=== PATIENT | male | born 1940 | race Two or more races ===

== ENCOUNTER 2017-07-15 08:27 | Emergency (ER) | payer OTHER, MEDICAID ==
[~2017-07-15] VITALS: Ht 167.6 cm; Wt 78.9 kg
[2017-07-15 09:04] LABS: Urine WBC None Seen /hpf (0 - 3)
[2017-07-15 09:09] LABS: Basophils # (auto) 0 uL; Basophils % (auto) 0.1 % (0.0-2.0); Eosinophils # (auto) 0.2 uL; Eosinophils % (auto) 3.6 % (0.0-7.0); Hematocrit 41.7 % (41.0-53.0); Hemoglobin 13.7 g/dL (13.5-17.5); Lymphocytes % (auto) 14.5 % (10.0-50.0); Mean Corpuscular Hgb Conc. 32.7 g/dL (32.0-36.0); Mean Corpuscular Volume 91.8 fL (80.0-100.0); Monocytes # (auto) 0.5 uL; Monocytes % (auto) 7.2 % (0.0-12.0); Neutrophils % (auto) 74.6 % (37.0-80.0); Nucleated Red Blood Cells % 0.1 %; Platelet Count (auto) 273 10^3/uL (140-450); Red Blood Cells 4.55 10^6/uL (4.5-5.90); Red Cell Distribution Width 14.3 % (11.8-14.3); White Blood Cell 6.7 10^3/uL (4.4-10.8)
[2017-07-15 09:25] LABS: Albumin 3.9 g/dL (3.4-5.0); BUN/Creatinine Ratio 16.8; Bilirubin, Total 0.6 mg/dL (0.2-1.0); Calcium 8.9 mg/dL (8.5-10.1); Potassium 3.2 mmol/L (3.5-5.1); Total Protein 8.5 g/dL (6.4-8.2)
[2017-07-15 09:33] LABS: Urine Bacteria NONE SEEN /hpf (None Seen); Urine Blood Negative /uL (Negative); Urine Mucus FEW (None Seen); Urine Specific Gravity 1.014 (1.001-1.035)
[2017-07-15] MEDS ORDERED: NALBUPHINE HCL 10 MG/1ml INJECTION IV ONE (09:45)
[2017-07-15] MEDS ORDERED: POTASSIUM CHL 10% (20 MEQ/15ML) 15ml ORAL SOLN PO ONE (10:45)
[2017-07-15 11:11] VITALS: BP 114/70
== END 2017-07-15 12:26 | disposition home or self-care (01) ==
LOC: ER 08:27
DX: R10.11 Right upper quadrant pain (principal); I10 Essential (primary) hypertension; E78.00 Pure hypercholesterolemia, unspecified; Z90.49 Acquired absence of other specified parts of digestive tract
CPT/HCPCS: 36415; 74176; 80053; 81001; 85025; 93005; 96374; 99285; J2300

== ENCOUNTER → 2018-02-11 | Outpatient (CLI) | payer MEDICARE, MEDICAID | END | disposition home or self-care (01) | LOC: Rad HDHVI 14:33 | PROVIDERS: ATTEND Internal Medicine | DX: I73.9 Peripheral vascular disease, unspecified (principal); R94.31 Abnormal electrocardiogram [ECG] [EKG]; R07.9 Chest pain, unspecified; M79.669 Pain in unspecified lower leg | CPT/HCPCS: 93306; 93926 ==

== ENCOUNTER → 2018-02-13 | Outpatient (CLI) | payer MEDICARE, MEDICAID ==
[2018-02-13 12:16] LABS: Basophils # (auto) 0 uL; Basophils % (auto) 0.6 % (0.0-2.0); Eosinophils # (auto) 0.2 uL; Eosinophils % (auto) 3.6 % (0.0-7.0); Hematocrit 40.3 % (41.0-53.0); Hemoglobin 13.9 g/dL (13.5-17.5); Lymphocytes % (auto) 17.5 % (10.0-50.0); Mean Corpuscular Hemoglobin 31.8 pg (28.0-32.0); Mean Corpuscular Hgb Conc. 34.5 g/dL (32.0-36.0); Mean Corpuscular Volume 92.3 fL (80.0-100.0); Monocytes # (auto) 0.4 uL; Monocytes % (auto) 6.9 % (0.0-12.0); Neutrophils # (auto) 4.2 uL; Neutrophils % (auto) 71.4 % (37.0-80.0); Nucleated Red Blood Cells % 0.3 %; Platelet Count (auto) 243 10^3/uL (140-450); Red Blood Cells 4.36 10^6/uL (4.5-5.90); White Blood Cell 5.9 10^3/uL (4.4-10.8)
[2018-02-13 12:17] LABS: Urine Blood Negative /uL (Negative); Urine Specific Gravity 1.016 (1.001-1.035)
[2018-02-13 12:55] LABS: Albumin 3.7 g/dL (3.4-5.0); BUN/Creatinine Ratio 22.5; Bilirubin, Total 0.6 mg/dL (0.2-1.0); Potassium 3.8 mmol/L (3.5-5.1); Total Protein 7.9 g/dL (6.4-8.2)
[2018-02-13 13:15] LABS: Free T4 (Free Thyroxine) 0.95 ng/dL (0.89-1.76)
[2018-02-13 13:17] LABS: Prostate Specific Antigen 5.06 ng/mL (0.0-4.0)
== END | disposition home or self-care (01) ==
LOC: LAB 09:49
PROVIDERS: ATTEND Internal Medicine
DX: Z00.01 Encounter for general adult medical examination with abnormal findings (principal); C61 Malignant neoplasm of prostate; E29.1 Testicular hypofunction; E03.9 Hypothyroidism, unspecified; E11.9 Type 2 diabetes mellitus without complications; E55.9 Vitamin D deficiency, unspecified; D51.9 Vitamin B12 deficiency anemia, unspecified; N39.0 Urinary tract infection, site not specified
CPT/HCPCS: 36415; 80053; 80061; 81003; 82306; 82607; 83036; 84153; 84154; 84403; 84439; 84443; 85025

== ENCOUNTER → 2018-04-01 | Outpatient (CLI) | payer MEDICARE, MEDICAID ==
[~2018-04-01] VITALS: Ht 167.6 cm; Wt 77.6 kg
[~2018-04-01] MED LIST: ADENOSINE 65 MG in GIVE UN-DILUTED 0 ML IV ONE; ADENOSINE 90 MG/30 ML INJ IV ONE
== END | disposition home or self-care (01) ==
LOC: Rad HDHVI 09:42
PROVIDERS: ATTEND Internal Medicine Cardiovascular Disease
DX: I10 Essential (primary) hypertension (principal); M51.37 Other intervertebral disc degeneration, lumbosacral region
CPT/HCPCS: 78452; 93005; 96374; 96375; A9500; J0153

== ENCOUNTER → 2018-12-21 | Outpatient (CLI) | payer MEDICARE, MEDICAID ==
[2018-12-21 16:20] LABS: Urine Blood Negative /uL (Negative)
[2018-12-21 16:32] LABS: Basophils # (auto) 0 uL; Basophils % (auto) 0.6 % (0.0-2.0); Eosinophils # (auto) 0.2 uL; Eosinophils % (auto) 2.5 % (0.0-7.0); Hematocrit 38.2 % (41.0-53.0); Hemoglobin 12.8 g/dL (13.5-17.5); Lymphocytes # (auto) 1.1 uL; Lymphocytes % (auto) 16.6 % (10.0-50.0); Mean Corpuscular Hemoglobin 30.9 pg (28.0-32.0); Mean Corpuscular Hgb Conc. 33.4 g/dL (32.0-36.0); Mean Corpuscular Volume 92.6 fL (80.0-100.0); Monocytes # (auto) 0.5 uL; Monocytes % (auto) 6.8 % (0.0-12.0); Neutrophils # (auto) 4.9 uL; Neutrophils % (auto) 73.5 % (37.0-80.0); Nucleated Red Blood Cells % 0.1 %; Platelet Count (auto) 257 10^3/uL (140-450); Red Blood Cells 4.13 10^6/uL (4.5-5.90); Red Cell Distribution Width 14.1 % (11.8-14.3); White Blood Cell 6.7 10^3/uL (4.4-10.8)
[2018-12-21 16:35] LABS: Albumin 3.5 g/dL (3.4-5.0); Calcium 9.1 mg/dL (8.5-10.1); Potassium 3.8 mmol/L (3.5-5.1)
[2018-12-21 16:41] LABS: Bilirubin, Total 0.5 mg/dL (0.2-1.0); Total Protein 7.7 g/dL (6.4-8.2)
[2018-12-21 16:53] LABS: Prostate Specific Antigen 4.94 ng/mL (0.0-4.0)
[2018-12-21 18:08] LABS: BUN/Creatinine Ratio 22.7
== END | disposition home or self-care (01) ==
LOC: LAB 13:09
PROVIDERS: ATTEND Internal Medicine
DX: E03.9 Hypothyroidism, unspecified (principal); K90.9 Intestinal malabsorption, unspecified; C61 Malignant neoplasm of prostate; E29.1 Testicular hypofunction; N39.0 Urinary tract infection, site not specified; D51.9 Vitamin B12 deficiency anemia, unspecified; Z79.899 Other long term (current) drug therapy
CPT/HCPCS: 36415; 80053; 80061; 81003; 82306; 82607; 83036; 84153; 84154; 84403; 84439; 84443; 85025

== ENCOUNTER → 2018-12-22 | Outpatient (CLI) | payer MEDICARE, MEDICAID | END | disposition home or self-care (01) | LOC: Rad HDHVI 11:03 | PROVIDERS: ATTEND Internal Medicine | DX: I73.9 Peripheral vascular disease, unspecified (principal); M79.604 Pain in right leg; M79.605 Pain in left leg | CPT/HCPCS: 93926 ==

== ENCOUNTER → 2019-01-18 | Outpatient (CLI) | payer MEDICARE, MEDICAID | END | disposition home or self-care (01) | LOC: Rad HDHVI 09:32 | PROVIDERS: ATTEND Internal Medicine | DX: M17.0 Bilateral primary osteoarthritis of knee (principal) | CPT/HCPCS: 73562 ==

== ENCOUNTER 2019-04-17 07:23 | Emergency (ER) | payer MEDICARE, MEDICAID ==
[~2019-04-17] VITALS: Ht 167.6 cm; Wt 74.8 kg
[2019-04-17 08:34] LABS: Basophils # (auto) 0 uL; Basophils % (auto) 0.6 % (0.0-2.0); Eosinophils # (auto) 0.2 uL; Eosinophils % (auto) 2.5 % (0.0-7.0); Hematocrit 41.4 % (41.0-53.0); Lymphocytes # (auto) 1.2 uL; Lymphocytes % (auto) 17.4 % (10.0-50.0); Mean Corpuscular Hemoglobin 31.1 pg (28.0-32.0); Mean Corpuscular Hgb Conc. 33.8 g/dL (32.0-36.0); Mean Corpuscular Volume 92.1 fL (80.0-100.0); Monocytes # (auto) 0.4 uL; Monocytes % (auto) 5.9 % (0.0-12.0); Neutrophils % (auto) 73.6 % (37.0-80.0); Platelet Count (auto) 288 10^3/uL (140-450); Red Blood Cells 4.49 10^6/uL (4.5-5.90); Red Cell Distribution Width 13.8 % (11.8-14.3); White Blood Cell 6.7 10^3/uL (4.4-10.8)
[2019-04-17 08:51] LABS: Albumin 3.9 g/dL (3.4-5.0); Anion Gap 6 (5-15); Aspartate Aminotransferase 20 U/L (15-37); Blood Urea Nitrogen 13 mg/dL (7-18); Calcium 9.6 mg/dL (8.5-10.1); Carbon Dioxide 28 mmol/L (21-32); Chloride 107 mmol/L (98-107); GFR African American 101 mL/min; GFR Non-African American 84 mL/min; Glucose 94 mg/dL (74-106); Magnesium 2.3 mg/dL (1.6-2.6); Potassium 3.9 mmol/L (3.5-5.1); Sodium 141 mmol/L (136-145)
[2019-04-17 09:54] LABS: Alanine Aminotransferase 30 U/L (16-61); Alkaline Phosphatase 81 U/L (45-117); Bilirubin, Total 0.9 mg/dL (0.2-1.0); Total Protein 8.2 g/dL (6.4-8.2)
[2019-04-17 10:49] LABS: Urine Bacteria NONE SEEN /hpf (None Seen); Urine Blood Negative /uL (Negative); Urine Specific Gravity 1.009 (1.001-1.035); Urine WBC 1 /hpf (0 - 3)
[2019-04-17 12:00] VITALS: BP 108/62
[2019-04-17] MEDS ORDERED: SUCCINYLCHOLINE CHLORIDE 20 MG/ML 10ML VIAL IV ONE (12:47)
[2019-04-17] MEDS ORDERED: ETOMIDATE (2MG/ML) 20ML VIAL IV ONE (12:47)
== END 2019-04-17 14:06 | disposition home or self-care (01) ==
LOC: ER 07:38
DX: M79.604 Pain in right leg (principal); M79.605 Pain in left leg; R53.1 Weakness; G47.00 Insomnia, unspecified; I10 Essential (primary) hypertension; E78.00 Pure hypercholesterolemia, unspecified; Z90.49 Acquired absence of other specified parts of digestive tract
CPT/HCPCS: 36415; 71046; 80053; 81001; 82550; 82962; 83735; 83880; 84484; 85025; 85379; 93005; 94761; 99284; J0330

== ENCOUNTER 2019-05-20 11:08 | Emergency (ER) | payer MEDICARE, MEDICAID ==
[~2019-05-20] VITALS: Ht 167.6 cm; Wt 77.6 kg
[2019-05-20 12:06] LABS: Basophils # (auto) 0 uL; Basophils % (auto) 0.5 % (0.0-2.0); Eosinophils # (auto) 0 uL; Eosinophils % (auto) 0.5 % (0.0-7.0); Hematocrit 37.4 % (41.0-53.0); Hemoglobin 12.7 g/dL (13.5-17.5); Lymphocytes # (auto) 0.9 uL; Lymphocytes % (auto) 13.7 % (10.0-50.0); Mean Corpuscular Hemoglobin 30.8 pg (28.0-32.0); Mean Corpuscular Volume 90.7 fL (80.0-100.0); Monocytes # (auto) 0.3 uL; Monocytes % (auto) 5.1 % (0.0-12.0); Neutrophils # (auto) 5.4 uL; Neutrophils % (auto) 80.2 % (37.0-80.0); Platelet Count (auto) 255 10^3/uL (140-450); Red Blood Cells 4.12 10^6/uL (4.5-5.90); White Blood Cell 6.8 10^3/uL (4.4-10.8)
[2019-05-20 12:28] LABS: Albumin 3.6 g/dL (3.4-5.0); Anion Gap 5 (5-15); Blood Urea Nitrogen 15 mg/dL (7-18); Calcium 8.7 mg/dL (8.5-10.1); Carbon Dioxide 29 mmol/L (21-32); Chloride 104 mmol/L (98-107); Glucose 118 mg/dL (74-106); Potassium 3.3 mmol/L (3.5-5.1); Sodium 138 mmol/L (136-145)
[2019-05-20 12:33] LABS: Alanine Aminotransferase 28 U/L (16-61); Alkaline Phosphatase 75 U/L (45-117); Aspartate Aminotransferase 20 U/L (15-37); BUN/Creatinine Ratio 17.6; Bilirubin, Total 0.7 mg/dL (0.2-1.0); GFR African American 112 mL/min; GFR Non-African American 93 mL/min; Total Protein 7.7 g/dL (6.4-8.2)
[2019-05-20 14:48] LABS: Urine Bacteria NONE SEEN /hpf (None Seen); Urine Blood Negative /uL (Negative); Urine Specific Gravity 1.005 (1.001-1.035); Urine WBC 1 /hpf (0 - 3)
[2019-05-20] MEDS ORDERED: SODIUM CHLORIDE 0.9% 1,000 ML IV ONE ×2 (15:00)
[2019-05-20 17:07] VITALS: BP 114/72
[2019-05-20] MEDS ORDERED: POTASSIUM EFFERVESENT TAB 25 MEQ PO ONE (17:45)
== END 2019-05-20 17:58 | disposition home or self-care (01) ==
LOC: ER 11:08
DX: E87.6 Hypokalemia (principal); N40.0 Benign prostatic hyperplasia without lower urinary tract symptoms; E78.5 Hyperlipidemia, unspecified; I10 Essential (primary) hypertension
CPT/HCPCS: 36415; 71046; 80053; 81001; 84484; 85025; 93005; 99284; J7030

== ENCOUNTER 2019-06-29 06:10 | Emergency (ER) | payer MEDICARE, MEDICAID ==
[~2019-06-29] VITALS: Ht 167.6 cm; Wt 77.6 kg
[2019-06-29] MEDS ORDERED: SODIUM CHLORIDE 0.9% 1,000 ML IV ONE ×2 (07:18)
[2019-06-29 07:45] LABS: Basophils # (auto) 0 uL; Basophils % (auto) 0.6 % (0.0-2.0); Eosinophils # (auto) 0.2 uL; Eosinophils % (auto) 2.8 % (0.0-7.0); Hematocrit 37.6 % (41.0-53.0); Hemoglobin 12.8 g/dL (13.5-17.5); Lymphocytes # (auto) 1.5 uL; Lymphocytes % (auto) 23.4 % (10.0-50.0); Mean Corpuscular Hemoglobin 30.9 pg (28.0-32.0); Mean Corpuscular Hgb Conc. 33.9 g/dL (32.0-36.0); Mean Corpuscular Volume 91.3 fL (80.0-100.0); Monocytes # (auto) 0.5 uL; Monocytes % (auto) 7.7 % (0.0-12.0); Neutrophils # (auto) 4.1 uL; Neutrophils % (auto) 65.5 % (37.0-80.0); Platelet Count (auto) 245 10^3/uL (140-450); Red Blood Cells 4.12 10^6/uL (4.5-5.90); White Blood Cell 6.3 10^3/uL (4.4-10.8)
[2019-06-29 08:02] LABS: Albumin 3.9 g/dL (3.4-5.0); Calcium 9.3 mg/dL (8.5-10.1); Potassium 3.6 mmol/L (3.5-5.1)
[2019-06-29 08:04] LABS: BUN/Creatinine Ratio 20.7
[2019-06-29 08:07] LABS: Bilirubin, Total 0.6 mg/dL (0.2-1.0); Total Protein 7.9 g/dL (6.4-8.2)
[2019-06-29 09:47] VITALS: BP 145/77
== END 2019-06-29 10:09 | disposition home or self-care (01) ==
LOC: ER 06:10
DX: K46.9 Unspecified abdominal hernia without obstruction or gangrene (principal); M19.90 Unspecified osteoarthritis, unspecified site; E78.5 Hyperlipidemia, unspecified; I10 Essential (primary) hypertension
CPT/HCPCS: 36415; 74176; 80053; 83690; 85025

== ENCOUNTER → 2019-10-01 | Outpatient (CLI) | payer MEDICARE, MEDICAID ==
[~2019-10-01] VITALS: Ht 167.6 cm; Wt 78.9 kg
[~2019-10-01] MED LIST changes: -ADENOSINE 65 MG in GIVE UN-DILUTED 0 ML IV ONE; +ADENOSINE 66 MG in GIVE UN-DILUTED 0 ML IV ONE
[2019-10-01 11:58] LABS: Basophils # (auto) 0 10 ^3/uL (0-0.2); Basophils % (auto) 0.7 % (0.0-2.0); Eosinophils # (auto) 0.2 10 ^3/uL (0-0.8); Eosinophils % (auto) 2.8 % (0.0-7.0); Hematocrit 42.5 % (41.0-53.0); Lymphocytes # (auto) 1.6 10 ^3/uL (0.4-5.4); Mean Corpuscular Hemoglobin 30.3 pg (28.0-32.0); Mean Corpuscular Volume 91.8 fL (80.0-100.0); Monocytes # (auto) 0.5 10 ^3/uL (0-1.3); Monocytes % (auto) 7.5 % (0.0-12.0); Neutrophils # (auto) 4.7 10 ^3/uL (1.6-8.6); Platelet Count (auto) 270 10^3/uL (140-450); Red Blood Cells 4.63 10^6/uL (4.5-5.90); Red Cell Distribution Width 13.7 % (11.8-14.3); White Blood Cell 7.1 10^3/uL (4.4-10.8)
[2019-10-01 12:10] LABS: Albumin 4.1 g/dL (3.4-5.0); Calcium 9.5 mg/dL (8.5-10.1); Potassium 3.9 mmol/L (3.5-5.1)
[2019-10-01 12:15] LABS: BUN/Creatinine Ratio 17.4; Bilirubin, Total 0.7 mg/dL (0.2-1.0); Total Protein 8.3 g/dL (6.4-8.2)
[2019-10-01 12:21] LABS: Free T4 (Free Thyroxine) 1.17 ng/dL (0.89-1.76)
[2019-10-01 14:13] LABS: Prostate Specific Antigen 5.82 ng/mL (0.0-4.0)
== END | disposition home or self-care (01) ==
LOC: Rad HDHVI 08:00
PROVIDERS: ATTEND Internal Medicine
DX: E78.00 Pure hypercholesterolemia, unspecified (principal); E03.9 Hypothyroidism, unspecified; K90.9 Intestinal malabsorption, unspecified; C61 Malignant neoplasm of prostate; N39.0 Urinary tract infection, site not specified; D51.9 Vitamin B12 deficiency anemia, unspecified; Z79.899 Other long term (current) drug therapy
CPT/HCPCS: 36415; 78452; 80053; 80061; 82306; 82607; 83036; 84153; 84154; 84403; 84439; 84443; 85025; 93005; 96374; 96375; A9500; J0153

== ENCOUNTER → 2019-10-06 | Outpatient (CLI) | payer MEDICARE, MEDICAID | END | disposition home or self-care (01) | LOC: Rad HDHVI 12:44 | PROVIDERS: ATTEND Internal Medicine | DX: I11.0 Hypertensive heart disease with heart failure (principal); I50.9 Heart failure, unspecified; I42.9 Cardiomyopathy, unspecified; M25.561 Pain in right knee; R60.9 Edema, unspecified; R42 Dizziness and giddiness | CPT/HCPCS: 93925 ==

== ENCOUNTER → 2020-04-20 | Outpatient (CLI) | payer MEDICARE, MEDICAID ==
[2020-04-20 15:56] LABS: Basophils # (auto) 0 10 ^3/uL (0-0.2); Basophils % (auto) 0.5 % (0.0-2.0); Eosinophils # (auto) 0.2 10 ^3/uL (0-0.8); Eosinophils % (auto) 3.4 % (0.0-7.0); Hematocrit 38.6 % (41.0-53.0); Hemoglobin 12.9 g/dL (13.5-17.5); Lymphocytes # (auto) 1.4 10 ^3/uL (0.4-5.4); Lymphocytes % (auto) 20.5 % (10.0-50.0); Mean Corpuscular Hemoglobin 30.5 pg (28.0-32.0); Mean Corpuscular Hgb Conc. 33.4 g/dL (32.0-36.0); Mean Corpuscular Volume 91.3 fL (80.0-100.0); Monocytes # (auto) 0.5 10 ^3/uL (0-1.3); Monocytes % (auto) 7.3 % (0.0-12.0); Neutrophils # (auto) 4.6 10 ^3/uL (1.6-8.6); Neutrophils % (auto) 68.3 % (37.0-80.0); Nucleated Red Blood Cells % 0.1 %; Platelet Count (auto) 272 10^3/uL (140-450); Red Blood Cells 4.23 10^6/uL (4.5-5.90); Red Cell Distribution Width 14.3 % (11.8-14.3); White Blood Cell 6.8 10^3/uL (4.4-10.8)
[2020-04-20 16:05] LABS: Albumin 3.8 g/dL (3.4-5.0); Calcium 9.4 mg/dL (8.5-10.1); Potassium 4.2 mmol/L (3.5-5.1)
[2020-04-20 16:12] LABS: BUN/Creatinine Ratio 28.1; Bilirubin, Total 0.5 mg/dL (0.2-1.0); Total Protein 7.9 g/dL (6.4-8.2)
== END | disposition home or self-care (01) ==
LOC: CHF HDHVI 12:49
PROVIDERS: ATTEND Internal Medicine
DX: C61 Malignant neoplasm of prostate (principal); D51.3 Other dietary vitamin B12 deficiency anemia; I10 Essential (primary) hypertension; E11.9 Type 2 diabetes mellitus without complications; E55.9 Vitamin D deficiency, unspecified; D64.9 Anemia, unspecified; R00.2 Palpitations; R53.1 Weakness; R30.0 Dysuria
CPT/HCPCS: 36415; 80053; 80061; 84153; 84154; 84443; 85025

== ENCOUNTER → 2020-08-31 | Outpatient (CLI) | payer MEDICARE, MEDICAID | END | disposition home or self-care (01) | LOC: CHF HDHVI 12:51 | PROVIDERS: ATTEND Internal Medicine Cardiovascular Disease | DX: I11.0 Hypertensive heart disease with heart failure (principal); I50.9 Heart failure, unspecified | CPT/HCPCS: 93306 ==

== ENCOUNTER → 2020-12-04 | Outpatient (CLI) | payer MEDICARE, MEDICAID ==
[~2020-12-04] VITALS: Ht 165.1 cm; Wt 78.0 kg
[~2020-12-04] MED LIST changes: -ADENOSINE 66 MG in GIVE UN-DILUTED 0 ML IV ONE; -ADENOSINE 90 MG/30 ML INJ IV ONE; +ATOR20TA PO; +HYDR25TA4 PO; +LOSA-69 PO; +MAGN400T40 PO; +MULTCAP45 PO; +PANT40TA2 PO
[2020-12-04 11:50] LABS: Basophils # (auto) 0 10 ^3/uL (0-0.2); Basophils % (auto) 0.8 % (0.0-2.0); Eosinophils # (auto) 0.2 10 ^3/uL (0-0.8); Eosinophils % (auto) 2.9 % (0.0-7.0); Hematocrit 38.4 % (41.0-53.0); Hemoglobin 13.3 g/dL (13.5-17.5); Lymphocytes % (auto) 16.7 % (10.0-50.0); Mean Corpuscular Hgb Conc. 34.5 g/dL (32.0-36.0); Mean Corpuscular Volume 89.9 fL (80.0-100.0); Monocytes # (auto) 0.4 10 ^3/uL (0-1.3); Monocytes % (auto) 6.6 % (0.0-12.0); Neutrophils # (auto) 4.3 10 ^3/uL (1.6-8.6); Platelet Count (auto) 264 10^3/uL (140-450); Red Blood Cells 4.27 10^6/uL (4.5-5.90); White Blood Cell 5.8 10^3/uL (4.4-10.8)
[2020-12-04 12:09] LABS: Urine Bacteria NONE SEEN /hpf (None Seen); Urine Blood Negative /uL (Negative); Urine Specific Gravity 1.015 (1.001-1.035); Urine WBC <1 /hpf (0 - 3)
[2020-12-04 12:12] LABS: Albumin 3.9 g/dL (3.4-5.0); Bilirubin, Total 0.5 mg/dL (0.2-1.0); Calcium 9.1 mg/dL (8.5-10.1)
== END | disposition home or self-care (01) ==
LOC: LAB 11:13 → EDSTATUS 12-07 10:30
PROVIDERS: ATTEND Internal Medicine Gastroenterology
DX: R10.9 Unspecified abdominal pain (principal); Z98.890 Other specified postprocedural states; Z79.899 Other long term (current) drug therapy; Z20.822 Contact with and (suspected) exposure to COVID-19
CPT/HCPCS: 36415; 80053; 81001; 85025; 85049; U0003

== ENCOUNTER → 2021-01-08 | Outpatient (CLI) | payer MEDICARE, MEDICAID | END | disposition home or self-care (01) | LOC: Rad HDHVI 13:09 | PROVIDERS: ATTEND Internal Medicine | DX: I10 Essential (primary) hypertension (principal); E78.5 Hyperlipidemia, unspecified | CPT/HCPCS: 93306 ==

== ENCOUNTER → 2021-03-01 | Outpatient (CLI) | payer MEDICARE, MEDICAID ==
[~2021-03-01] VITALS: Ht 167.6 cm; Wt 75.3 kg
[~2021-03-01] MED LIST changes: +ADENOSINE 63 MG in GIVE UN-DILUTED 0 ML IV ONE; +ADENOSINE 90 MG/30 ML INJ IV ONE
== END | disposition home or self-care (01) ==
LOC: Rad HDHVI 02-16 12:56
PROVIDERS: ATTEND Internal Medicine
DX: R00.2 Palpitations (principal); I10 Essential (primary) hypertension; E78.5 Hyperlipidemia, unspecified
CPT/HCPCS: 78452; 93005; 96374; 96375; A9500; J0153

== ENCOUNTER 2021-08-12 01:22 | Emergency (ER) | payer MEDICARE, MEDICAID ==
[~2021-08-12] VITALS: Ht 160 cm; Wt 78.0 kg
[~2021-08-12 01:22] MED LIST changes: -ADENOSINE 63 MG in GIVE UN-DILUTED 0 ML IV ONE; -ADENOSINE 90 MG/30 ML INJ IV ONE
[2021-08-12 01:50] LABS: Basophils # (auto) 0.1 10 ^3/uL (0-0.2); Basophils % (auto) 0.6 % (0.0-2.0); Eosinophils # (auto) 0 10 ^3/uL (0-0.8); Eosinophils % (auto) 0.4 % (0.0-7.0); Hematocrit 39.3 % (41.0-53.0); Hemoglobin 13.3 g/dL (13.5-17.5); Lymphocytes # (auto) 1.2 10 ^3/uL (0.4-5.4); Lymphocytes % (auto) 9.7 % (10.0-50.0); Mean Corpuscular Hemoglobin 31.3 pg (28.0-32.0); Mean Corpuscular Hgb Conc. 33.8 g/dL (32.0-36.0); Mean Corpuscular Volume 92.5 fL (80.0-100.0); Monocytes # (auto) 0.6 10 ^3/uL (0-1.3); Monocytes % (auto) 4.8 % (0.0-12.0); Neutrophils % (auto) 84.5 % (37.0-80.0); Red Blood Cells 4.24 10^6/uL (4.5-5.90); Red Cell Distribution Width 14.1 % (11.8-14.3); White Blood Cell 11.9 10^3/uL (4.4-10.8)
[2021-08-12 02:18] LABS: Albumin 3.8 g/dL (3.4-5.0); BUN/Creatinine Ratio 26.4; Magnesium 2.2 mg/dL (1.6-2.6); Potassium 3.6 mmol/L (3.5-5.1)
[2021-08-12 02:22] LABS: Bilirubin, Total 0.5 mg/dL (0.2-1.0); Total Protein 7.7 g/dL (6.4-8.2)
[2021-08-12 05:51] VITALS: BP 129/78
[2021-08-12 06:17] LABS: Magnesium 2.3 mg/dL (1.6-2.6)
== END 2021-08-12 06:29 | disposition home or self-care (01) ==
LOC: ER 01:24
DX: R42 Dizziness and giddiness (principal); I10 Essential (primary) hypertension; E11.9 Type 2 diabetes mellitus without complications; Z79.899 Other long term (current) drug therapy
CPT/HCPCS: 36415; 71045; 80053; 83735; 83880; 84484; 85025; 93005

== ENCOUNTER → 2021-10-22 | Outpatient (CLI) | payer MEDICARE, MEDICAID ==
[2021-10-22 15:33] LABS: Basophils # (auto) 0 10 ^3/uL (0-0.2); Basophils % (auto) 0.6 % (0.0-2.0); Eosinophils # (auto) 0.1 10 ^3/uL (0-0.8); Eosinophils % (auto) 2.2 % (0.0-7.0); Hematocrit 38.7 % (41.0-53.0); Hemoglobin 13.1 g/dL (13.5-17.5); Lymphocytes # (auto) 1.2 10 ^3/uL (0.4-5.4); Lymphocytes % (auto) 18.3 % (10.0-50.0); Mean Corpuscular Hgb Conc. 33.8 g/dL (32.0-36.0); Mean Corpuscular Volume 91.6 fL (80.0-100.0); Monocytes # (auto) 0.5 10 ^3/uL (0-1.3); Neutrophils # (auto) 4.7 10 ^3/uL (1.6-8.6); Neutrophils % (auto) 71.9 % (37.0-80.0); Nucleated Red Blood Cells % 0.1 %; Red Blood Cells 4.22 10^6/uL (4.5-5.90); Red Cell Distribution Width 13.9 % (11.8-14.3); White Blood Cell 6.5 10^3/uL (4.4-10.8)
[2021-10-22 15:45] LABS: Calcium 9.4 mg/dL (8.5-10.1); Potassium 3.7 mmol/L (3.5-5.1)
[2021-10-22 15:47] LABS: BUN/Creatinine Ratio 23.8
[2021-10-22 16:20] LABS: INR 1.01 (0.9-1.15); Partial Thromboplastin Time 32.5 sec (23.6-33.0)
== END | disposition home or self-care (01) ==
LOC: Rad HDHVI 11:43
PROVIDERS: ATTEND Internal Medicine
DX: Z01.812 Encounter for preprocedural laboratory examination (principal); M79.604 Pain in right leg; M79.605 Pain in left leg
CPT/HCPCS: 36415; 71046; 80048; 85025; 85610; 85730

== ENCOUNTER 2022-01-05 08:14 | Emergency (ER) | payer MEDICARE, MEDICAID ==
[~2022-01-05] VITALS: Ht 170.2 cm; Wt 77.2 kg
[2022-01-05] MEDS ORDERED: GABAPENTIN 300 MG CAP PO ONE (09:00)
[2022-01-05] MEDS ORDERED: SODIUM CHLORIDE 0.9% 500 ML IV ONE (09:00)
[2022-01-05] MEDS ORDERED: SODIUM CHLORIDE 0.9% 1,000 ML IV ONE (09:00)
[2022-01-05] MEDS ORDERED: HYDROmorphone HCL 2 MG/ML VL/or syr IV ONE (09:00)
[2022-01-05] MEDS ORDERED: DexAMETHasone SOD PHOS 10MG/1ML VIAL INJ IV ONE (09:00)
[2022-01-05 09:04] LABS: Basophils # (auto) 0 10 ^3/uL (0-0.2); Basophils % (auto) 0.7 % (0.0-2.0); Eosinophils # (auto) 0 10 ^3/uL (0-0.8); Eosinophils % (auto) 0.5 % (0.0-7.0); Hematocrit 39.9 % (41.0-53.0); Lymphocytes % (auto) 16.4 % (10.0-50.0); Mean Corpuscular Hemoglobin 29.6 pg (28.0-32.0); Mean Corpuscular Hgb Conc. 32.7 g/dL (32.0-36.0); Mean Corpuscular Volume 90.6 fL (80.0-100.0); Monocytes # (auto) 0.4 10 ^3/uL (0-1.3); Monocytes % (auto) 6.4 % (0.0-12.0); Neutrophils # (auto) 4.6 10 ^3/uL (1.6-8.6); Nucleated Red Blood Cells % 0.1 %; Red Cell Distribution Width 14.3 % (11.8-14.3); White Blood Cell 6.1 10^3/uL (4.4-10.8)
[2022-01-05 09:18] LABS: Partial Thromboplastin Time 30.9 sec (24.6-33.4)
[2022-01-05 09:22] LABS: Albumin 3.5 g/dL (3.4-5.0); Calcium 9.2 mg/dL (8.5-10.1); Magnesium 2.2 mg/dL (1.6-2.6); Potassium 4.1 mmol/L (3.5-5.1)
[2022-01-05 09:25] LABS: BUN/Creatinine Ratio 25.3; Bilirubin, Total 0.8 mg/dL (0.2-1.0); Total Protein 7.6 g/dL (6.4-8.2)
[2022-01-05 11:05] LABS: Urine WBC None Seen /hpf (0 - 3)
[2022-01-05 11:17] LABS: Urine Bacteria NONE SEEN /hpf (None Seen); Urine Blood Negative /uL (Negative); Urine Mucus FEW (None Seen); Urine Specific Gravity 1.012 (1.001-1.035)
[2022-01-05 12:00] VITALS: BP 132/61
[2022-01-05] MEDS ORDERED: GABA300C10 PO (13:06)
[2022-01-05] MEDS ORDERED: FOLITAB22 PO (13:06)
== END 2022-01-05 13:50 | disposition home or self-care (01) ==
LOC: ER 08:14
DX: M47.27 Other spondylosis with radiculopathy, lumbosacral region (principal); M54.42 Lumbago with sciatica, left side; M54.41 Lumbago with sciatica, right side; E78.5 Hyperlipidemia, unspecified; I10 Essential (primary) hypertension; M19.90 Unspecified osteoarthritis, unspecified site
CPT/HCPCS: 36415; 71045; 80053; 81001; 83735; 83880; 84443; 84484; 85025; 85610; 85730; 93005; 96361; 96374; 96375; 99285; J1100; J1170; J7030; J7040

== ENCOUNTER → 2022-01-29 | Outpatient (CLI) | payer MEDICARE, MEDICAID ==
[~2022-01-29] MED LIST changes: +FOLITAB22 PO; +GABA300C10 PO
== END | disposition home or self-care (01) ==
LOC: Rad HDHVI 15:28
PROVIDERS: ATTEND Internal Medicine
DX: S72.001A Fracture of unspecified part of neck of right femur, initial encounter for closed fracture (principal); M97.01XA Periprosthetic fracture around internal prosthetic right hip joint, initial encounter; X58.XXXA Exposure to other specified factors, initial encounter; Y93.89 Activity, other specified; Y92.89 Other specified places as the place of occurrence of the external cause; Y99.8 Other external cause status; M85.80 Other specified disorders of bone density and structure, unspecified site

== ENCOUNTER 2022-01-30 09:41 | Emergency (ER) | payer MEDICARE, MEDICAID ==
[~2022-01-30] VITALS: Ht 157.5 cm; Wt 78.0 kg
[2022-01-30] MEDS ORDERED: ACETAMINOPHEN 325 MG TAB PO ONE (12:15)
[2022-01-30 15:29] VITALS: BP 145/83
== END 2022-01-30 21:35 | disposition left against medical advice (07) ==
LOC: ER 09:41
DX: M25.551 Pain in right hip (principal); I10 Essential (primary) hypertension; E78.5 Hyperlipidemia, unspecified; Z90.49 Acquired absence of other specified parts of digestive tract; Z79.899 Other long term (current) drug therapy; W18.39XA Other fall on same level, initial encounter; Y93.89 Activity, other specified; Y92.89 Other specified places as the place of occurrence of the external cause; Y99.8 Other external cause status
CPT/HCPCS: 73700

== ENCOUNTER 2022-02-03 09:41 | Inpatient (IN) | payer MEDICARE, MEDICAID ==
[~2022-02-03] VITALS: Ht 167.6 cm; Wt 69.5 kg
[2022-02-03 12:24] LABS: Basophils # (auto) 0 10 ^3/uL (0-0.2); Basophils % (auto) 0.7 % (0.0-2.0); Eosinophils # (auto) 0.1 10 ^3/uL (0-0.8); Eosinophils % (auto) 2.1 % (0.0-7.0); Hematocrit 37.3 % (41.0-53.0); Hemoglobin 12.2 g/dL (13.5-17.5); Lymphocytes # (auto) 0.8 10 ^3/uL (0.4-5.4); Lymphocytes % (auto) 12.1 % (10.0-50.0); Mean Corpuscular Hemoglobin 29.6 pg (28.0-32.0); Mean Corpuscular Hgb Conc. 32.6 g/dL (32.0-36.0); Mean Corpuscular Volume 90.7 fL (80.0-100.0); Monocytes # (auto) 0.3 10 ^3/uL (0-1.3); Monocytes % (auto) 5.4 % (0.0-12.0); Neutrophils % (auto) 79.7 % (37.0-80.0); Nucleated Red Blood Cells % 0.1 %; Red Blood Cells 4.11 10^6/uL (4.5-5.90); White Blood Cell 6.2 10^3/uL (4.4-10.8)
[2022-02-03 12:41] LABS: Potassium 3.7 mmol/L (3.5-5.1)
[2022-02-03 12:48] LABS: Albumin 3.2 g/dL (3.4-5.0); Bilirubin, Total 0.4 mg/dL (0.2-1.0)
[2022-02-03] MEDS ORDERED: ONDANSETRON HCL 4 MG/2 ML VIAL IV PRN (15:15)
[2022-02-03] MEDS ORDERED: ACETAMINOPHEN 325 MG TAB PO PRN (15:15)
[2022-02-03] MEDS ORDERED: DOCUSATE SOD 100 MG CAP PO PRN (15:15)
[2022-02-03] MEDS: HYDROcodone-ACET 5/325MG TAB PO PRN (15:34)
[2022-02-03 18:42] LABS: Urine Bacteria NONE SEEN /hpf (None Seen); Urine Blood Negative /uL (Negative); Urine Specific Gravity 1.021 (1.001-1.035); Urine WBC 10 /hpf (0 - 3)
[2022-02-03] MEDS: GABAPENTIN 300 MG CAP PO SCH (22:55)
[2022-02-03 23:16] VITALS: BP 150/78
[2022-02-03 23:30] VITALS: BP 150/78
[2022-02-04 04:49] LABS: Basophils # (auto) 0 10 ^3/uL (0-0.2); Basophils % (auto) 0.6 % (0.0-2.0); Eosinophils # (auto) 0.2 10 ^3/uL (0-0.8); Eosinophils % (auto) 2.4 % (0.0-7.0); Hematocrit 36.8 % (41.0-53.0); Lymphocytes % (auto) 15.8 % (10.0-50.0); Mean Corpuscular Hemoglobin 29.6 pg (28.0-32.0); Mean Corpuscular Hgb Conc. 32.7 g/dL (32.0-36.0); Mean Corpuscular Volume 90.6 fL (80.0-100.0); Monocytes # (auto) 0.4 10 ^3/uL (0-1.3); Monocytes % (auto) 6.8 % (0.0-12.0); Neutrophils # (auto) 4.8 10 ^3/uL (1.6-8.6); Neutrophils % (auto) 74.4 % (37.0-80.0); Red Blood Cells 4.06 10^6/uL (4.5-5.90); Red Cell Distribution Width 14.1 % (11.8-14.3); White Blood Cell 6.5 10^3/uL (4.4-10.8)
[2022-02-04 05:00] VITALS: BP 149/80
[2022-02-04 05:04] LABS: Potassium 3.8 mmol/L (3.5-5.1)
[2022-02-04 05:09] LABS: Calcium 8.8 mg/dL (8.5-10.1)
[2022-02-04] MEDS: GABAPENTIN 300 MG CAP PO SCH ×3 (05:33→22:24)
[2022-02-04 09:00] VITALS: BP 144/68
[2022-02-04] MEDS: ENOXAPARIN SOD 40 MG/0.4 ML SYRINGE SC SCH (09:47)
[2022-02-04] MEDS: HCTZ 25 MG TAB PO SCH (09:47)
[2022-02-04] MEDS: PANTOPRAZOLE 40 MG TAB PO SCH (09:47)
[2022-02-04] MEDS: LOSARTAN POTASSIUM 50 MG TAB PO SCH (09:48)
[2022-02-04] MEDS: ATORVASTATIN 20 MG TAB PO SCH (09:48)
[2022-02-04] MEDS: HYDROcodone-ACET 5/325MG TAB PO PRN ×3 (11:47→20:52)
[2022-02-04] MEDS ORDERED: HYDROmorphone HCL 2 MG/ML VL/or syr IV PRN ×2 (12:45→18:30)
[2022-02-04 13:00] VITALS: BP 136/79
[2022-02-04] MEDS ORDERED: IOHEXOL 300 MG/ML 100ML BOTTLE IJ ONE (13:14)
[2022-02-04 17:22] VITALS: BP 132/76
[2022-02-04 22:00] VITALS: BP 100/60
[2022-02-05 05:00] VITALS: BP 123/70
[2022-02-05] MEDS: GABAPENTIN 300 MG CAP PO SCH ×3 (06:21→21:22)
[2022-02-05 08:20] VITALS: BP 126/82
[2022-02-05] MEDS: ENOXAPARIN SOD 40 MG/0.4 ML SYRINGE SC SCH (08:54)
[2022-02-05] MEDS: ATORVASTATIN 20 MG TAB PO SCH (08:55)
[2022-02-05] MEDS: LOSARTAN POTASSIUM 50 MG TAB PO SCH (08:55)
[2022-02-05] MEDS: HCTZ 25 MG TAB PO SCH (08:55)
[2022-02-05] MEDS: PANTOPRAZOLE 40 MG TAB PO SCH (08:55)
[2022-02-05 12:15] VITALS: BP 140/84
[2022-02-05 16:15] VITALS: BP 115/66
[2022-02-05 22:00] VITALS: BP 94/66
[2022-02-06] MEDS: HYDROcodone-ACET 5/325MG TAB PO PRN ×2 (00:48→13:31)
[2022-02-06 05:00] VITALS: BP 98/69
[2022-02-06] MEDS: GABAPENTIN 300 MG CAP PO SCH ×2 (05:37→13:31)
[2022-02-06 08:15] VITALS: BP 119/71
[2022-02-06] MEDS: ENOXAPARIN SOD 40 MG/0.4 ML SYRINGE SC SCH (09:01)
[2022-02-06] MEDS: ATORVASTATIN 20 MG TAB PO SCH (09:01)
[2022-02-06] MEDS: PANTOPRAZOLE 40 MG TAB PO SCH (09:01)
[2022-02-06] MEDS: HCTZ 25 MG TAB PO SCH (09:01)
[2022-02-06] MEDS: LOSARTAN POTASSIUM 50 MG TAB PO SCH (09:02)
[2022-02-06] MEDS ORDERED: METH750T22 PO (10:16)
[2022-02-06] MEDS ORDERED: HYDR2TAB58 PO (10:16)
[2022-02-06 12:10] VITALS: BP 98/58
[2022-02-06 13:39] VITALS: BP 98/58
== END 2022-02-06 18:08 | disposition home or self-care (01) | DRG 552 ==
LOC: ER 09:41 → OVERFLOW 15:17 → WEST WING 22:10
PROVIDERS: ADMIT Nurse Practitioner Family; ATTEND Family Medicine
DX: S22.089A Unspecified fracture of T11-T12 vertebra, initial encounter for closed fracture (principal); M54.9 Dorsalgia, unspecified; M51.36 Other intervertebral disc degeneration, lumbar region; E78.5 Hyperlipidemia, unspecified; Z20.822 Contact with and (suspected) exposure to COVID-19; G89.29 Other chronic pain; M25.551 Pain in right hip; R26.2 Difficulty in walking, not elsewhere classified; I10 Essential (primary) hypertension; M54.40 Lumbago with sciatica, unspecified side; M85.80 Other specified disorders of bone density and structure, unspecified site; W07.XXXA Fall from chair, initial encounter; G62.9 Polyneuropathy, unspecified; Z91.19 Patient's noncompliance with other medical treatment and regimen; Z79.899 Other long term (current) drug therapy; Y93.89 Activity, other specified; Y92.89 Other specified places as the place of occurrence of the external cause; Y99.8 Other external cause status; Z99.3 Dependence on wheelchair
CPT/HCPCS: 36415; 72132; 80048; 80053; 81001; 85025; 97110; 97116; 97163; G0378

== ENCOUNTER 2022-03-19 09:15 | Emergency (ER) | payer MEDICARE, MEDICAID ==
[~2022-03-19] VITALS: Ht 167.6 cm; Wt 78.0 kg
[~2022-03-19 09:15] MED LIST changes: +HYDR2TAB58 PO; +METH750T22 PO
[2022-03-19] MEDS ORDERED: LIDOCAINE 2% JELLY 11ml (GLYDO) ONE (09:40)
[2022-03-19] MEDS ORDERED: LIDOCAINE 2% JELLY 11ml (GLYDO) UR ONE (09:45)
[2022-03-19 10:29] LABS: Urine Bacteria NONE SEEN /hpf (None Seen); Urine Blood 3+ /uL (Negative); Urine Specific Gravity 1.008 (1.001-1.035); Urine WBC 1 /hpf (0 - 3)
[2022-03-19 11:07] LABS: Basophils # (auto) 0 10 ^3/uL (0-0.2); Basophils % (auto) 0.5 % (0.0-2.0); Eosinophils # (auto) 0.1 10 ^3/uL (0-0.8); Eosinophils % (auto) 1.8 % (0.0-7.0); Hematocrit 34.6 % (41.0-53.0); Hemoglobin 11.2 g/dL (13.5-17.5); Lymphocytes # (auto) 0.6 10 ^3/uL (0.4-5.4); Lymphocytes % (auto) 12.5 % (10.0-50.0); Mean Corpuscular Hemoglobin 29.4 pg (28.0-32.0); Mean Corpuscular Hgb Conc. 32.5 g/dL (32.0-36.0); Mean Corpuscular Volume 90.6 fL (80.0-100.0); Monocytes # (auto) 0.3 10 ^3/uL (0-1.3); Neutrophils % (auto) 79.2 % (37.0-80.0); Red Blood Cells 3.82 10^6/uL (4.5-5.90); Red Cell Distribution Width 14.6 % (11.8-14.3)
[2022-03-19 11:13] LABS: Potassium 3.6 mmol/L (3.5-5.1)
[2022-03-19 11:24] LABS: Albumin 3.4 g/dL (3.4-5.0); BUN/Creatinine Ratio 23.9; Bilirubin, Total 0.7 mg/dL (0.2-1.0); Calcium 8.9 mg/dL (8.5-10.1); Total Protein 6.5 g/dL (6.4-8.2)
[2022-03-19] MEDS ORDERED: ACETAMINOPHEN 325 MG TAB PO ONE (13:00)
[2022-03-19 14:13] VITALS: BP 147/75
== END 2022-03-19 16:26 | disposition home or self-care (01) ==
LOC: ER 09:15
DX: R33.9 Retention of urine, unspecified (principal); E78.5 Hyperlipidemia, unspecified; I10 Essential (primary) hypertension; Z20.822 Contact with and (suspected) exposure to COVID-19
CPT/HCPCS: 36415; 51702; 80053; 81001; 85025

== ENCOUNTER → 2022-10-15 | Outpatient (CLI) | payer MEDICARE, OTHER | END | disposition home or self-care (01) | LOC: Rad HDHVI 13:01 | PROVIDERS: ATTEND Internal Medicine Cardiovascular Disease | DX: I07.1 Rheumatic tricuspid insufficiency (principal); R06.02 Shortness of breath; R00.2 Palpitations | CPT/HCPCS: 93306 ==

== ENCOUNTER 2024-03-24 04:39 | Inpatient (IN) | payer MEDICARE, MEDICAID ==
[~2024-03-24] VITALS: Ht 167.6 cm; Wt 71.9 kg
[~2024-03-24 04:39] MED LIST changes: +GABA-1250 PO; -GABA300C10 PO; +LOSA-534 PO; -LOSA-69 PO; +METH-1182 PO; -METH750T22 PO
[2024-03-24 05:51] LABS: Basophils # (auto) 0.1 10 ^3/uL (0-0.2); Basophils % (auto) 0.8 % (0.0-2.0); Eosinophils # (auto) 0.1 10 ^3/uL (0-0.8); Eosinophils % (auto) 1.1 % (0.0-7.0); Hematocrit 41.9 % (41.0-53.0); Hemoglobin 14.3 g/dL (13.5-17.5); Lymphocytes # (auto) 1.4 10 ^3/uL (0.4-5.4); Lymphocytes % (auto) 13.1 % (10.0-50.0); Mean Corpuscular Hgb Conc. 34.1 g/dL (32.0-36.0); Monocytes # (auto) 0.8 10 ^3/uL (0-1.3); Monocytes % (auto) 6.9 % (0.0-12.0); Neutrophils # (auto) 8.5 10 ^3/uL (1.6-8.6); Neutrophils % (auto) 78.1 % (37.0-80.0); Platelet Count (auto) 283 10^3/uL (140-450); Red Cell Distribution Width 13.9 % (11.8-14.3); White Blood Cell 10.9 10^3/uL (4.4-10.8)
[2024-03-24 06:13] LABS: Urine Bacteria None Seen /hpf (None Seen)
[2024-03-24 06:17] LABS: Alanine Aminotransferase 22 U/L (7-40); Albumin 4.7 g/dL (3.2-4.8); Alkaline Phosphatase 97 U/L (46-116); Anion Gap 8 (5-15); Aspartate Aminotransferase 22 U/L (13-40); BUN/Creatinine Ratio 17.6 (10.0-20.0); Bilirubin, Total 0.9 mg/dL (0.2-1.0); Blood Urea Nitrogen 16 mg/dL (9-23); Calcium 10.1 mg/dL (8.7-10.4); Carbon Dioxide 24 mmol/L (20-31); Chloride 105 mmol/L (98-107); Glucose 99 mg/dL (74-106); Potassium 3.8 mmol/L (3.5-5.1); Sodium 137 mmol/L (136-145); Total Protein 7.9 g/dL (5.7-8.2)
[2024-03-24 06:43] LABS: Urine Blood 1+ /uL (Negative); Urine Clarity Clear (Clear); Urine Color Light-Yellow (Yellow); Urine Mucus FEW (None Seen); Urine Protein, UAD Negative (Negative); Urine Specific Gravity 1.015 (1.001-1.035); Urine Urobilinogen Normal (Negative); Urine WBC <1 /hpf (0 - 3)
[2024-03-24 06:48] VITALS: PULSE 75; RESP 16; O2SAT 96
[2024-03-24] MEDS ORDERED: TAMS0.4C39 PO (08:44)
[2024-03-24] MEDS ORDERED: ONDANSETRON HCL 4 MG/2 ML VIAL IV PRN (08:45)
[2024-03-24] MEDS: TAMSULOSIN HYDROCHLORIDE 0.4 MG CAP PO SCH (09:39)
[2024-03-24] MEDS: hydroCHLOROthiazide 25 MG TAB PO SCH (09:39)
[2024-03-24] MEDS: PANTOPRAZOLE 40 MG TAB PO SCH (09:39)
[2024-03-24] MEDS: ATORVASTATIN 20 MG TAB PO SCH (09:39)
[2024-03-24] MEDS: LOSARTAN POTASSIUM 50 MG TAB PO SCH (09:40)
[2024-03-24] MEDS: DOCUSATE SOD 100 MG CAP PO PRN (09:41)
[2024-03-24] MEDS: BISACODYL 10 MG RECT SUPP PR ONE (10:44)
[2024-03-24] MEDS: ACETAMINOPHEN 325 MG TAB PO PRN (13:46)
[2024-03-24 14:20] VITALS: BP 111/67; PULSE 80; RESP 18; TEMP 98.8; O2SAT 96
[2024-03-24] MEDS: GABAPENTIN 300 MG CAP PO SCH (14:58)
[2024-03-24] MEDS ORDERED: QUET50TA PO (15:17)
[2024-03-24 16:36] VITALS: BP 111/68; PULSE 74; RESP 16; TEMP 98.1; O2SAT 94
[2024-03-24 20:00] VITALS: PULSE 60; RESP 16; O2SAT 93
[2024-03-24 21:00] VITALS: BP 109/62; PULSE 60; RESP 16; TEMP 97.8; O2SAT 93
[2024-03-25 00:47] VITALS: BP 124/59; PULSE 62; RESP 16; TEMP 97.5; O2SAT 93
[2024-03-25 05:00] VITALS: BP 122/72; PULSE 65; RESP 16; TEMP 97.7; O2SAT 93
[2024-03-25 07:34] LABS: Chloride 106 mmol/L (98-107); Potassium 3.7 mmol/L (3.5-5.1); Sodium 137 mmol/L (136-145)
[2024-03-25 07:35] LABS: Anion Gap 6 (5-15); Calcium 9.5 mg/dL (8.7-10.4); Carbon Dioxide 25 mmol/L (20-31)
[2024-03-25 07:36] LABS: Basophils # (auto) 0 10 ^3/uL (0-0.2); Basophils % (auto) 0.5 % (0.0-2.0); Eosinophils # (auto) 0.3 10 ^3/uL (0-0.8); Eosinophils % (auto) 2.8 % (0.0-7.0); Hematocrit 36.9 % (41.0-53.0); Hemoglobin 12.7 g/dL (13.5-17.5); Lymphocytes # (auto) 1.3 10 ^3/uL (0.4-5.4); Mean Corpuscular Hemoglobin 31.6 pg (28.0-32.0); Mean Corpuscular Hgb Conc. 34.5 g/dL (32.0-36.0); Mean Corpuscular Volume 91.6 fL (80.0-100.0); Monocytes # (auto) 0.8 10 ^3/uL (0-1.3); Monocytes % (auto) 8.5 % (0.0-12.0); Neutrophils # (auto) 6.8 10 ^3/uL (1.6-8.6); Neutrophils % (auto) 74.2 % (37.0-80.0); Platelet Count (auto) 240 10^3/uL (140-450); Red Blood Cells 4.03 10^6/uL (4.5-5.90); Red Cell Distribution Width 13.8 % (11.8-14.3); White Blood Cell 9.1 10^3/uL (4.4-10.8)
[2024-03-25 07:40] LABS: BUN/Creatinine Ratio 18.1 (10.0-20.0); Blood Urea Nitrogen 19 mg/dL (9-23); Glucose 98 mg/dL (74-106)
[2024-03-25 08:19] VITALS: BP 103/52; PULSE 61; RESP 16; TEMP 97.5; O2SAT 93
[2024-03-25 12:24] VITALS: BP 107/53; PULSE 84; RESP 19; TEMP 98.4; O2SAT 98
[2024-03-25 16:49] VITALS: BP 119/55; PULSE 65; RESP 16; TEMP 98.2; O2SAT 93
[2024-03-25] MEDS: TAMSULOSIN HYDROCHLORIDE 0.4 MG CAP PO SCH (17:59)
[2024-03-25 21:00] VITALS: BP 117/61; PULSE 69; RESP 18; TEMP 97.5; O2SAT 93
[2024-03-26 01:00] VITALS: BP 127/61; PULSE 66; RESP 18; TEMP 97.4; O2SAT 93
[2024-03-26 05:00] VITALS: BP 121/61; PULSE 71; RESP 17; TEMP 97.2; O2SAT 93
[2024-03-26 09:00] VITALS: BP 110/59; PULSE 61; RESP 15; TEMP 97.8; O2SAT 95
[2024-03-26] MEDS ORDERED: DOCU-94 PO (12:12)
[2024-03-26 13:00] VITALS: BP 117/57; PULSE 63; RESP 15; TEMP 97.8; O2SAT 93
[2024-03-26 17:00] VITALS: BP 110/62; PULSE 69; RESP 18; TEMP 97.8; O2SAT 94
== END 2024-03-26 20:41 | disposition home or self-care (01) | DRG 388 ==
LOC: ER 04:39 → OVERFLOW 08:49 → WEST WING 14:12
PROVIDERS: ADMIT Registered Nurse General Practice; ATTEND Nurse Practitioner Acute Care
DX: K56.41 Fecal impaction (principal); G82.50 Quadriplegia, unspecified; N13.8 Other obstructive and reflux uropathy; N40.1 Benign prostatic hyperplasia with lower urinary tract symptoms; E78.5 Hyperlipidemia, unspecified; I10 Essential (primary) hypertension; G62.9 Polyneuropathy, unspecified; G89.29 Other chronic pain; Z90.49 Acquired absence of other specified parts of digestive tract; Z79.899 Other long term (current) drug therapy; Z74.01 Bed confinement status
CPT/HCPCS: 36415; 74176; 80048; 80053; 81001; 85025; G0378

== ENCOUNTER 2024-04-01 10:44 | Inpatient (IN) | payer MEDICARE, MEDICAID ==
[~2024-04-01] VITALS: Ht 167.6 cm; Wt 71.9 kg
[~2024-04-01 10:44] MED LIST changes: +DOCU-94 PO; +QUET50TA PO; +TAMS0.4C39 PO
--- NOTE | 2024-04-01 11:21 | ED.PDOC ---
General HPI Comments 84 y.o male with PMH of BPH, presents to the ED for a chief complaint of hematuria that started 2 days ago. Patient was BIB spouse who states patient had a Dial catheter in on 03/25/24 due to urinary retention. Spouse reports she noticed patient was passing blood clots this morning and urine was dark in coloration. Patient denies any pain, fever, chills or abdominal pain. Chief Complaint: Urinary Time Seen by MD: 11:08 Primary Care Provider: VIANEY Reviewed notes: Nurses Notes, Medications, Allergies Allergies: Coded Allergies: NO KNOWN ALLERGIES (Unverified , 03/03/16) Home Meds Active Scripts Docusate Sodium (Colace) 100 Mg Cap, 1 CAP PO BID, #30 CAP Prov:KELSEY ROSE NP 03/26/24 Methocarbamol (Methocarbamol) 750 Mg Tab, 750 MG PO TID, #30 TAB Prov:JAMIL ARNETT MD 02/06/22 Hydromorphone Hcl (Dilaudid) 2 Mg Tab, 1 TAB PO TID PRN, #30 TAB Prov:JAMIL ARNETT MD 02/06/22 Gabapentin (Gabapentin) 300 Mg Cap, 1 CAP PO TID for 30 Days, #90 CAP 5 Refills Prov:YESSI LEON MD 01/05/22 Folic Msda-Arumwxhnxj-Aongeuwl (Folbic) Tab, 1 TAB PO DAILY, #90 TAB 3 Refills Prov:YESSI LEON MD 01/05/22 Reported Medications Quetiapine Fumerate (Seroquel) 50 Mg Tab, 25 MG PO DAILY, TAB 03/24/24 Tamsulosin Hcl (Tamsulosin Hcl) 0.4 Mg Cap, 0.4 NG PO DAILY 03/24/24 Multiple Vitamin (Multivitamins) Cap, 1 CAP PO DAILY, CAP 12/04/20 Pantoprazole Sodium Sesquihydr (Protonix) 40 Mg Tab, 40 MG PO DAILY, #30 TAB 12/04/20 Magnesium Oxide (MAGNESIUM OXIDE) 400 Mg Tab, 400 MG PO DAILY, TAB 12/04/20 Hydrochlorothiazide (Hydrochlorothiazide) 25 Mg Tab, 25 MG PO DAILY, TAB 12/04/20 Atorvastatin Calcium (Lipitor) 20 Mg Tab, 20 MG PO DAILY, TAB 12/04/20 Losartan Potassium (Losartan Potassium) 50 Mg Tab, 50 MG PO DAILY, TAB 12/04/20 Information Source: Patient, Spouse Mode of Arrival: Wheelchair Severity: Moderate Timing: Days (2) Duration: Since onset Onset: Spontaneous Symptoms: Hematuria History of: Suprapubic catheter Location: None Penile discharge: None Modifying factors: None associated signs and symptoms: Hematuria Past Medical History Past Medical History (Other): BPH Surgical History: Appendectomy Family History Family History: Reviewed,noncontributory to illness Social History Smoker: Non-Smoker Alcohol: Denies ETOH Use Drugs: Denies Drug Use Lives In: Home Constitutional: denies: chills, diaphoresis, fatigue, fever, malaise, sweats, weakness, others EENTM: denies: blurred vision, double vision, ear bleeding, ear discharge, ear drainage, ear pain, ear ringing, eye pain, eye redness, hearing loss, mouth pain, mouth swelling, nasal discharge, nose bleeding, nose congestion, nose pain, photophobia, tearing, throat pain, throat swelling, voice changes, others Respiratory: denies: cough, hemoptysis, orthopnea, SOB at rest, shortness of breath, SOB with excertion, stridor, wheezing, others Cardiovascular: denies: chest pain, dizzy spells, diaphoresis, Dyspnea on exertion, edema, irregular heart beat, left arm pain, lightheadedness, palpitations, PND, syncope, others Gastrointestinal: denies: abdomen distended, abdominal pain, blood streaked bowels, constipated, diarrhea, dysphagia, difficulty swallowing, hematemesis, melena, nausea, poor appetite, poor fluid intake, rectal bleeding, rectal pain, vomiting, others Genitourinary: reports: hematuria; denies: burning, dysuria, flank pain, frequency, incontinence, penile discharge, penile sore, pain, testicle pain, testicle swelling, urgency, others Neurological: denies: dizziness, fainting, headache, left sided numbness, left sided weakness, numbness, paresthesia, pre-existing deficit, right sided numbness, right sided weakness, seizure, speech problems, tingling, tremors, weakness, others Musculoskeletal: denies: back pain, gout, joint pain, joint swelling, muscle pain, muscle stiffness, neck pain, others Integumetry: denies: bruises, change in color, change in hair/nails, dryness, laceration, lesions, lumps, rash, wounds, others Allergic/Immunocompromised: denies: Difficulty Healing, Frequent Infections, Hives, Itching, others Hematologic/Lymphatic: denies: anemia, blood clots, easy bleeding, easy bruising, swollen glands, others Endocrine: denies: excessive hunger, excessive sweating, excessive thirst, excessive urination, flushing, intolerance to cold, intolerance to heat, unexplained weight gain, unexplained weight loss, others Psychiatric: denies: anxiety, bipolar disorder, depression, hopeless, panic disorder, schizophrenia, sleepless, suicidal, others All Other Systems: Reviewed and Negative Physical Exam General Appearance: Moderate Distress HEENT: Normal ENT Inspection, Pharynx Normal, TMs Normal Neck: Full Range of Motion, Non-Tender, Normal, Normal Inspection Respiratory: Chest Non-Tender, Lungs Clear, No Accessory Muscle Use, No Respiratory Distress, Normal Breath Sounds Cardiovascular: No Edema, No JVD, No Murmur, No Gallop, Normal Peripheral Pulses, Regular Rate/Rhythm Breast Exam: Deferred Gastrointestinal: No Organomegaly, Non Tender, No Pulsatile Mass, Normal Bowel Sounds, Soft Genitalia: Deferred Pelvic: Deferred Rectal: Deferred Extremities: Other (Chronic condition) Musculoskeletal : Apperance: Normal Neurologic: Alert Cerebellar Function: NOT DONE Reflexes: NOT DONE Skin: Dry, Normal Color, Warm Peripheral Pulses: 3+ Radial (R), 3+ Radial (L) Lymphatic: No Adenopathy Was a procedure done? Was a procedure done?: No Differential Diagnosis Kidney stone (Female): Musculoskeletal pain, Urinary obstruction, Urolithiasis Urinary Problem (Male): Urinary Retention, Urolithiasis, UTI X-Ray, Labs, Meds, VS Vital Signs Date Time Temp Pulse Resp B/P (MAP) Pulse Ox O2 Delivery O2 Flow Rate FiO2 04/01/24 10:55 99.5 69 16 136/73 (94) 94 Lab Test 04/01/24 11:09 Range/Units White Blood Count Pending Red Blood Count Pending Hemoglobin Pending Hematocrit Pending Mean Corpuscular Volume Pending Mean Corpuscular Hemoglobin Pending Mean Corpuscular Hemoglobin Concent Pending Red Cell Distribution Width Pending Platelet Count Pending Mean Platelet Volume Pending Neutrophils (%) (Auto) Pending Lymphocytes (%) (Auto) Pending Monocytes (%) (Auto) Pending Basophils (%) (Auto) Pending Neutrophils # (Auto) Pending Lymphocytes # (Auto) Pending Monocytes # (Auto) Pending Sodium Level Pending Potassium Level Pending Chloride Level Pending Carbon Dioxide Level Pending Anion Gap Pending Blood Urea Nitrogen Pending Creatinine Pending Glomerular Filtration Rate Calc Pending BUN/Creatinine Ratio Pending Serum Glucose Pending Calcium Level Pending Troponin I High Sensitivity Pending Patient alert. Urinary catheter in place. Mild fever. Vitals stable. Possible sepsis from urinary tract infection. Urology consultation. Reviewed his previous visit. Was given Rocephin. Explained to the patient. Time of 1ST Reevaluation: 11:15 Reevaluation 1ST: Unchanged Patient Education/Counseling: Diagnosis, Treatment, Prognosis Family Education/Counseling: Diagnosis, Treatment, Prognosis Departure 1 Departure Time of Disposition: 11:25 Impression: Primary Impression: Sepsis due to urinary tract infection Disposition: ADMITTED INPATIENT Admit to: Med Surg Condition: Guarded Critical Care Note Critical Care Time?: No Stability Stability form required: No I personally scribed for NONI ROUSSEAU MD ([email or web address]) on 04/01/24 at 11:21. Electronically submitted by Veronica Paige ([facility]). NONI ROUSSEAU MD Apr 01, 2024 11:21
[2024-04-01 11:26] LABS: Basophils # (auto) 0.1 10 ^3/uL (0-0.2); Basophils % (auto) 0.6 % (0.0-2.0); Eosinophils # (auto) 0.2 10 ^3/uL (0-0.8); Eosinophils % (auto) 1.7 % (0.0-7.0); Hematocrit 39.4 % (41.0-53.0); Hemoglobin 13.2 g/dL (13.5-17.5); Lymphocytes # (auto) 1.1 10 ^3/uL (0.4-5.4); Lymphocytes % (auto) 9.4 % (10.0-50.0); Mean Corpuscular Hemoglobin 30.8 pg (28.0-32.0); Mean Corpuscular Hgb Conc. 33.5 g/dL (32.0-36.0); Mean Corpuscular Volume 91.9 fL (80.0-100.0); Monocytes # (auto) 0.9 10 ^3/uL (0-1.3); Monocytes % (auto) 7.5 % (0.0-12.0); Neutrophils # (auto) 9.7 10 ^3/uL (1.6-8.6); Neutrophils % (auto) 80.8 % (37.0-80.0); Platelet Count (auto) 317 10^3/uL (140-450); Red Blood Cells 4.29 10^6/uL (4.5-5.90)
[2024-04-01 11:58] LABS: Chloride 106 mmol/L (98-107); Potassium 4.1 mmol/L (3.5-5.1); Sodium 138 mmol/L (136-145)
[2024-04-01 11:59] LABS: Anion Gap 7 (5-15); Carbon Dioxide 25 mmol/L (20-31)
[2024-04-01 12:00] LABS: Calcium 9.4 mg/dL (8.7-10.4)
[2024-04-01 12:04] LABS: BUN/Creatinine Ratio 18.2 (10.0-20.0); Blood Urea Nitrogen 14 mg/dL (9-23); Glucose 101 mg/dL (74-106)
[2024-04-01] MEDS: cefTRIAXone 1GM/50ML D5W 50 ML IV ONE (13:22)
[2024-04-01 13:43] LABS: Urine Bacteria None Seen /hpf (None Seen)
[2024-04-01 14:01] LABS: Urine Blood 3+ /uL (Negative); Urine Clarity Turbid (Clear); Urine Color Light-Orange (Yellow); Urine Mucus FEW (None Seen); Urine Protein, UAD 1+ (Negative); Urine Specific Gravity 1.017 (1.001-1.035); Urine Urobilinogen Normal (Negative); Urine WBC 170 /hpf (0 - 3)
--- NOTE | 2024-04-01 14:54 | DVHINCON2 ---
Date of service: Apr 01, 2024 Referring Physician ER Reason for Consultation darling problem History of Present Illness History Source: Patient, Spouse/Significant Other, Family, RN Notes, MD Notes, Broiler Supervisor, Old Records Exam Limitations: Language barrier HPI Patient known to service for elevated PSA and underwent TRUS/PNBX in October with no malignancy but enlarged 144 gram prostate. came to ER with c/o blood in the darling. There is small amount of tissue/clots but urine is yellow and catheter is draining without issue. Pt has aquablation of prostate scheduled for 04/14 Home Meds Active Scripts Docusate Sodium (Colace) 100 Mg Cap, 1 CAP PO BID, #30 CAP Prov:KELSEY ROSE NP 03/26/24 Methocarbamol (Methocarbamol) 750 Mg Tab, 750 MG PO TID, #30 TAB Prov:JAMIL ARNETT MD 02/06/22 Hydromorphone Hcl (Dilaudid) 2 Mg Tab, 1 TAB PO TID PRN, #30 TAB Prov:JAMIL ARNETT MD 02/06/22 Gabapentin (Gabapentin) 300 Mg Cap, 1 CAP PO TID for 30 Days, #90 CAP 5 Refills Prov:YESSI LEON MD 01/05/22 Folic Okkz-Cfpovltert-Djmvbgil (Folbic) Tab, 1 TAB PO DAILY, #90 TAB 3 Refills Prov:YESSI LEON MD 01/05/22 Reported Medications Quetiapine Fumerate (Seroquel) 50 Mg Tab, 25 MG PO DAILY, TAB 03/24/24 Tamsulosin Hcl (Tamsulosin Hcl) 0.4 Mg Cap, 0.4 NG PO DAILY 03/24/24 Multiple Vitamin (Multivitamins) Cap, 1 CAP PO DAILY, CAP 12/04/20 Pantoprazole Sodium Sesquihydr (Protonix) 40 Mg Tab, 40 MG PO DAILY, #30 TAB 12/04/20 Magnesium Oxide (MAGNESIUM OXIDE) 400 Mg Tab, 400 MG PO DAILY, TAB 12/04/20 Hydrochlorothiazide (Hydrochlorothiazide) 25 Mg Tab, 25 MG PO DAILY, TAB 12/04/20 Atorvastatin Calcium (Lipitor) 20 Mg Tab, 20 MG PO DAILY, TAB 12/04/20 Losartan Potassium (Losartan Potassium) 50 Mg Tab, 50 MG PO DAILY, TAB 12/04/20 Past Medical History Renal/: UTI, Benign prostatic enlarg., Hematuria Patient Family History: Patient reports no known family medical history. Review of Systems Genitourinary: Pain H&P Exam Vital Signs Vital Signs Date Time Temp Pulse Resp B/P (MAP) Pulse Ox O2 Delivery O2 Flow Rate FiO2 04/01/24 13:22 70 18 95 Room Air 04/01/24 13:22 98.0 143/66 (91) 98.0 General Appeara: Well developed, Well nourished, Normal Appearance Pulmonary/Respiratory: Normal inspection, Normal breath sounds, Chest non- tender, Lungs clear Cardiovascular/Chest: Normal inspection, Regular rate, Normal Rhythm Neuro/Mental St: Alert, Oriented Appearance: Appropriate appearance, Appropriate insight Eye contact/ Speech: Cooperative, Good eye contact, Normal speech Skin Exam: Normal inspection, Normal color, Warm/dry Labs/Xrays Labs Test 04/01/24 14:15 04/01/24 13:29 04/01/24 11:09 Range/Units Urine Color Light-orange Yellow Urine Clarity Turbid H Clear Urine pH 7.0 5.0-9.0 Urine Specific [place] 1.017 1.001-1.035 Urine Protein 1+ H Negative Urine Ketones Negative Negative Urine Blood 3+ H Negative /uL Urine Nitrite 2+ H Negative Urine Bilirubin Negative Negative Urine Urobilinogen Normal Negative mg/dL Urine Leukocyte Esterase 3+ Negative /uL Urine RBC 1198 0 - 3 /hpf Urine WBC 170 0 - 3 /hpf Urine Squamous Epithelial Cells None seen <5 /hpf Urine Bacteria None seen None Seen /hpf Urine Mucus Few None Seen Urine Glucose Normal Normal mg/dL White Blood Count 12.0 H 4.4-10.8 10^3/uL Red Blood Count 4.29 L 4.5-5.90 10^6/uL Hemoglobin 13.2 L 13.5-17.5 g/dL Hematocrit 39.4 L 41.0-53.0 % Mean Corpuscular Volume 91.9 80.0-100.0 fL Mean Corpuscular Hemoglobin 30.8 28.0-32.0 pg Mean Corpuscular Hemoglobin Concent 33.5 32.0-36.0 g/dL Red Cell Distribution Width 14.0 11.8-14.3 % Platelet Count 317 140-450 10^3/uL Mean Platelet Volume 7.5 6.9-10.8 fL Neutrophils (%) (Auto) 80.8 H 37.0-80.0 % Lymphocytes (%) (Auto) 9.4 L 10.0-50.0 % Monocytes (%) (Auto) 7.5 0.0-12.0 % Eosinophils (%) (Auto) 1.7 0.0-7.0 % Basophils (%) (Auto) 0.6 0.0-2.0 % Neutrophils # (Auto) 9.7 H 1.6-8.6 10 ^3/uL Lymphocytes # (Auto) 1.1 0.4-5.4 10 ^3/uL Monocytes # (Auto) 0.9 0-1.3 10 ^3/uL Eosinophils # (Auto) 0.2 0-0.8 10 ^3/uL Basophils # (Auto) 0.1 0-0.2 10 ^3/uL Nucleated Red Blood Cells 0.0 % Sodium Level 138 136-145 mmol/L Potassium Level 4.1 3.5-5.1 mmol/L Chloride Level 106 98-107 mmol/L Carbon Dioxide Level 25 20-31 mmol/L Anion Gap 7 5-15 Blood Urea Nitrogen 14 9-23 mg/dL Creatinine 0.77 0.700-1.30 mg/dL Glomerular Filtration Rate Calc 89 >90 mL/min BUN/Creatinine Ratio 18.2 10.0-20.0 Serum Glucose 101 74-106 mg/dL Calcium Level 9.4 8.7-10.4 mg/dL Troponin I High Sensitivity 5 </=54 ng/L Assessment/Plan Problem List: (1) Benign prostatic hyperplasia with lower urinary tract symptoms Plan cipro sent to patients pharmacy pt will f/u next week in office and has scheduled aqua ablation of prostate 04/14 cleared from urology standpoint Plan discussed with: Patient, Spouse, Daughter JAMISON SILVERIO BLAIRE Apr 01, 2024 14:54
[2024-04-01] MEDS ORDERED: ONDANSETRON HCL 4 MG/2 ML VIAL IV PRN (16:00)
[2024-04-01] MEDS ORDERED: MORPHINE SULFATE INJ 2 MG/ml SYRG IV PRN (16:00)
[2024-04-01] MEDS: SODIUM CHLORIDE 0.9% 1,000 ML IV ONE (16:00)
[2024-04-01] MEDS ORDERED: NITROGLYCERIN 0.4 MG SL TAB SL PRN (16:00)
--- NOTE | 2024-04-01 16:08 | DVHHP2 ---
History of Present Illness Reason for Visit: Blood in darling catheter History of Present Illness Moy Wang is an 84-year-old male with past medical history of BPH, who came in for blood in his darling catheter. Patient's states that she noticed blood in his catheter so she brought him in. Patient has established care with urology, was seen recently here when darling catheter was placed. He has a scheduled procedure with urology on 04/14/2024. Catheter does have a small amount of tissue/clot in the tubing, it is not impending the flow of urine. Review of Systems Constitutional: No: Fever, Chills, Sweats, Weakness, Malaise, Other Eyes: No: Pain, Vision change, Conjunctivae inflammation, Eyelid inflammation, Other, Redness ENT: No: Ear pain, Ear discharge, Nose pain, Nose discharge, Nose congestion, Mouth pain, Mouth swelling, Throat pain, Throat swelling, Other Respiratory: No: Cough, Dry, Shortness of breath, SOB with excertion, Wheezing, Hemoptysis, Pleuritic Pain, Sputum, Wheezing, Other Cardiovascular: No: Chest Pain, Palpitations, Orthopnea, Paroxysmal Noc. Dyspnea, Edema, Lt Headedness, Other Gastrointestinal: No: Nausea, Vomiting, Abdominal Pain, Diarrhea, Constipation, Melena, Hematochezia, Other Genitourinary: No Dysuria, No Frequency, No Incontinence; Hematuria; No Retention, No Other Musculoskeletal: No: other, neck pain, shoulder pain, arm pain, back pain, hand pain, leg pain, foot pain Skin: No: Rash, Lesions, Jaundice, Bruising, Other Neurological: No: Weakness, Numbness, Incoordination, Change in speech, Confusion, Seizures, Other Allergies: Coded Allergies: NO KNOWN ALLERGIES (Unverified , 03/03/16) Medications Current Medications Medications Dose Ordered Sig/Zohreh Route Start Time Stop Time Status Last Admin Dose Admin Ceftriaxone Sodium 50 ml @ 100 mls/hr DAILY@09 IV 04/02/24 09:00 UNV Exam Vital Signs Vital Signs Date Time Temp Pulse Resp B/P (MAP) Pulse Ox O2 Delivery O2 Flow Rate FiO2 04/01/24 13:22 70 18 95 Room Air 04/01/24 13:22 98.0 143/66 (91) 98.0 General Appearance: Alert, Oriented X3, Cooperative, No acute distress HEENT: Atraumatic, PERRLA Respiratory: Clear to auscultation, Normal air movement Cardiovascular: Regular rate, Normal S1, Normal S2 Abdominal: Normal bowel sounds, Soft, No tenderness Extremities: No clubbing, No cyanosis, No edema, Normal pulses Skin: No rashes, No breakdown, No significant lesion Neuro: Normal speech, Other Psych/Mental Status: Mental status NL, Mood NL Labs/Xrays Labs Test 04/01/24 14:15 04/01/24 13:29 04/01/24 11:09 Range/Units Lactic Acid Level 1.1 0.4-2.0 mmol/L Urine Color Light-orange Yellow Urine Clarity Turbid H Clear Urine pH 7.0 5.0-9.0 Urine Specific [place] 1.017 1.001-1.035 Urine Protein 1+ H Negative Urine Ketones Negative Negative Urine Blood 3+ H Negative /uL Urine Nitrite 2+ H Negative Urine Bilirubin Negative Negative Urine Urobilinogen Normal Negative mg/dL Urine Leukocyte Esterase 3+ Negative /uL Urine RBC 1198 0 - 3 /hpf Urine WBC 170 0 - 3 /hpf Urine Squamous Epithelial Cells None seen <5 /hpf Urine Bacteria None seen None Seen /hpf Urine Mucus Few None Seen Urine Glucose Normal Normal mg/dL White Blood Count 12.0 H 4.4-10.8 10^3/uL Red Blood Count 4.29 L 4.5-5.90 10^6/uL Hemoglobin 13.2 L 13.5-17.5 g/dL Hematocrit 39.4 L 41.0-53.0 % Mean Corpuscular Volume 91.9 80.0-100.0 fL Mean Corpuscular Hemoglobin 30.8 28.0-32.0 pg Mean Corpuscular Hemoglobin Concent 33.5 32.0-36.0 g/dL Red Cell Distribution Width 14.0 11.8-14.3 % Platelet Count 317 140-450 10^3/uL Mean Platelet Volume 7.5 6.9-10.8 fL Neutrophils (%) (Auto) 80.8 H 37.0-80.0 % Lymphocytes (%) (Auto) 9.4 L 10.0-50.0 % Monocytes (%) (Auto) 7.5 0.0-12.0 % Eosinophils (%) (Auto) 1.7 0.0-7.0 % Basophils (%) (Auto) 0.6 0.0-2.0 % Neutrophils # (Auto) 9.7 H 1.6-8.6 10 ^3/uL Lymphocytes # (Auto) 1.1 0.4-5.4 10 ^3/uL Monocytes # (Auto) 0.9 0-1.3 10 ^3/uL Eosinophils # (Auto) 0.2 0-0.8 10 ^3/uL Basophils # (Auto) 0.1 0-0.2 10 ^3/uL Nucleated Red Blood Cells 0.0 % Sodium Level 138 136-145 mmol/L Potassium Level 4.1 3.5-5.1 mmol/L Chloride Level 106 98-107 mmol/L Carbon Dioxide Level 25 20-31 mmol/L Anion Gap 7 5-15 Blood Urea Nitrogen 14 9-23 mg/dL Creatinine 0.77 0.700-1.30 mg/dL Glomerular Filtration Rate Calc 89 >90 mL/min BUN/Creatinine Ratio 18.2 10.0-20.0 Serum Glucose 101 74-106 mg/dL Calcium Level 9.4 8.7-10.4 mg/dL Troponin I High Sensitivity 5 </=54 ng/L Assessment/Plan Assessment/Plan Assessment: Benign prostatic hyperplasia with lower urinary tract symptoms, Possible UTI/sepsis, Plan: Admit to Med-Surg, IV hydration, IV antibiotics, Home medications reconciled, Plan discussed with: Patient, Spouse, Daughter My Orders Orders - MIRI MENDOZA GEAR LAPPER Procedure Category Date Status Time Ceftriaxone 1gm/50ml PHA 04/02/24 Logged D5w (Rocephin) 09:00 Sodium Chloride 0.9% PHA 04/01/24 Logged 16:00 Admit ADMIT 04/01/24 Transmitted 15:58 Code Status CODE 04/01/24 Transmitted 15:58 2 Gm Sodium Diet DIET 04/01/24 Transmitted Dinner Hydrocodone-Acet PHA 04/01/24 Logged 5/325mg Tab ([place] 16:00 Ondansetron Hcl PHA 04/01/24 Logged (Zofran) 16:00 Docusate Sodium PHA 04/01/24 Logged Capsule (Colace 16:00 Fall Risk Precautions JORGE 04/01/[address] 15:58 Complete Blood Count LAB 04/02/24 Verified 04:00 Comprehensive LAB 04/02/24 Verified Metabolic Panel 04:00 Condition: Serious [facility] 04/01/24 Transmitted 15:58 Acetaminophen Tablet [facility] 04/01/24 Logged (Tylenol Tablet) 16:00 Nitroglycerin [facility] 04/01/24 Transmitted Sublingual (Ntrostat 16:00 Morphine Sulfate [facility] 04/01/24 Transmitted Injection 16:00 Stat Ekg For Chest [facility] 04/01/24 Transmitted Pain 15:58 Notify Of Changes [facility] 04/01/24 Transmitted From Base 15:58 Homemaking Rehabilitation Consultant For [facility] 04/01/24 Transmitted 24 Hours 15:58 Emergency Dysrhythmia [facility] 04/01/24 Transmitted Protocol 15:58 Rhythm Strips Once [facility] 04/01/24 Transmitted Every Shift 15:58 Oxygen By Nasal 04/01/24 Transmitted Cannula 15:58 Date of Service: Apr 01, 2024 Billing Provider: MIRI MENDOZA Common Visit Codes: [id number] INP/OBS CARE (MOD) MIRI MENDOZA Apr 01, 2024 16:08
[2024-04-01 17:00] VITALS: O2SAT 95
[2024-04-01 18:53] VITALS: PULSE 63; RESP 19; O2SAT 96
[2024-04-01 20:00] VITALS: PULSE 68; RESP 16
[2024-04-01 21:00] VITALS: BP 118/75; PULSE 68; RESP 16; TEMP 98.1; O2SAT 98
[2024-04-02] VITALS (8 sets, daily range): BP systolic 101–160; BP diastolic 58–82; PULSE 60–85; RESP 16–20; TEMP 98–99; O2SAT 94–100
[2024-04-02] MEDS: HYDROcodone-ACET 5/325MG TAB PO PRN (01:51)
[2024-04-02 06:44] LABS: Alanine Aminotransferase 36 U/L (7-40); Alkaline Phosphatase 67 U/L (46-116); Anion Gap 2 (5-15); Blood Urea Nitrogen 12 mg/dL (9-23); Calcium 9.3 mg/dL (8.7-10.4); Carbon Dioxide 26 mmol/L (20-31); Chloride 110 mmol/L (98-107); Glucose 86 mg/dL (74-106); Potassium 4.1 mmol/L (3.5-5.1); Sodium 138 mmol/L (136-145)
[2024-04-02 06:45] LABS: Albumin 3.7 g/dL (3.2-4.8); Aspartate Aminotransferase 48 U/L (13-40); Bilirubin, Total 0.6 mg/dL (0.2-1.0)
[2024-04-02 06:46] LABS: Total Protein 6.3 g/dL (5.7-8.2)
[2024-04-02 06:48] LABS: Basophils # (auto) 0 10 ^3/uL (0-0.2); Basophils % (auto) 0.4 % (0.0-2.0); Eosinophils # (auto) 0.5 10 ^3/uL (0-0.8); Eosinophils % (auto) 5.4 % (0.0-7.0); Hematocrit 34.8 % (41.0-53.0); Hemoglobin 11.8 g/dL (13.5-17.5); Lymphocytes # (auto) 1.3 10 ^3/uL (0.4-5.4); Lymphocytes % (auto) 15.7 % (10.0-50.0); Mean Corpuscular Hgb Conc. 33.8 g/dL (32.0-36.0); Mean Corpuscular Volume 91.6 fL (80.0-100.0); Monocytes # (auto) 0.6 10 ^3/uL (0-1.3); Monocytes % (auto) 7.8 % (0.0-12.0); Neutrophils # (auto) 5.9 10 ^3/uL (1.6-8.6); Neutrophils % (auto) 70.7 % (37.0-80.0); Platelet Count (auto) 279 10^3/uL (140-450); Red Cell Distribution Width 13.6 % (11.8-14.3); White Blood Cell 8.3 10^3/uL (4.4-10.8)
[2024-04-02] MEDS: cefTRIAXone 1GM/50ML D5W 50 ML IV SCH (08:13)
[2024-04-02] MEDS: ACETAMINOPHEN 325 MG TAB PO PRN (11:14)
--- NOTE | 2024-04-02 11:46 | DVHPN2 ---
Subjective 84-year-old male with past medical history of elevated PSA, status post TRUS/PNBX 10/30 with enlarged prostate admitted for BPH with LUTS. Patient came in with blood in the Dial, no issue with catheter draining. Patient has been known to the service and has a scheduled occupation for 04/14. Patient has been cleared by , otherwise significant for hemoglobin drop of 13 -11. Reviewed: Care Plan, H&P, Labs, Medications, Previous Orders, Radiology Changes from previous H/P or p: No Changes Eyes: No Pain, No Vision change, No Conjunctivae inflammation, No Eyelid inflammation, No Other, No Redness ENT: No Ear pain, No Ear discharge, No Nose pain, No Nose discharge, No Nose congestion, No Mouth pain, No Mouth swelling, No Throat pain, No Throat swelling, No Other Cardiovascular: No Chest Pain, No Palpitations, No Orthopnea, No Paroxysmal Noc. Dyspnea, No Edema, No Lt Headedness, No Other Respiratory: No Cough, No Dry, No Shortness of breath, No SOB with excertion, No Wheezing, No Hemoptysis, No Pleuritic Pain, No Sputum, No Other Gastrointestinal: No Nausea, No Vomiting, No Abdominal Pain, No Diarrhea, No Constipation, No Melena, No Hematochezia, No Other Genitourinary: No Dysuria, No Frequency, No Incontinence; Hematuria; No Retention, No Other Musculoskeletal: No other, No neck pain, No shoulder pain, No arm pain, No back pain, No hand pain, No leg pain, No foot pain Skin: No Rash, No Lesions, No Jaundice, No Bruising, No Other Objective Vitals Vital Signs Date Time Temp Pulse Resp B/P (MAP) Pulse Ox O2 Delivery O2 Flow Rate FiO2 04/02/24 09:00 98.0 64 19 130/70 (90) 95 98.0 04/01/24 20:00 Room Air* 0 21 Intake/Output Intake and Output 04/02/24 07:00 Intake Total 250 ml Output Total 650 ml Balance -400 ml Intake Oral 200 ml IV Total 50 ml Output Urine Total 650 ml Exam Alert, oriented x3 PERRLA No JVD Clear breath sounds bilaterally S1-S2 regular rate and rhythm no murmur Abdomen soft nontender, no hepatomegaly Equal strength bilaterally on upper and lower extremities Dial intact No lower extremity edema Medications Current Medications Medications Dose Ordered Sig/Zohreh Route Start Time Stop Time Status Last Admin Dose Admin Ceftriaxone Sodium 50 ml @ 100 mls/hr DAILY@09 IV 04/02/24 09:00 04/02/24 08:13 100 MLS/HR Acetaminophen/ Hydrocodone Bitart 1 tab Q4HP PRN PO 04/01/24 16:00 04/02/24 01:51 1 TAB Ondansetron HCl 4 mg Q4HP PRN IV 04/01/24 16:00 Docusate Sodium 100 mg BIDPRN PRN PO 04/01/24 16:00 Acetaminophen 650 mg Q6HP PRN PO 04/01/24 16:00 04/02/24 11:14 650 MG Nitroglycerin 0.4 mg Q5MINP PRN SL 04/01/24 16:00 Morphine Sulfate 2 mg Q30M PRN IV 04/01/24 16:00 Laboratory Results Laboratory Tests 04/02/24 05:56 Chemistry Test 04/02/24 05:56 Albumin 3.7 g/dL (3.2-4.8) Calcium Level 9.3 mg/dL (8.7-10.4) Total Protein 6.3 g/dL (5.7-8.2) LFT Test 04/02/24 05:56 Alanine Aminotransferase (ALT) 36 U/L (7-40) Alkaline Phosphatase 67 U/L (46-116) Aspartate Amino Transferase (AST) 48 U/L (13-40) H Total Bilirubin 0.6 mg/dL (0.2-1.0) Urinalysis Test 04/01/24 13:29 Urine Color Light-orange (Yellow) Urine Clarity Turbid (Clear) H Urine pH 7.0 (5.0-9.0) Urine Specific [place] 1.017 (1.001-1.035) Urine Protein 1+ (Negative) H Urine Ketones Negative (Negative) Urine Blood 3+ /uL (Negative) H Urine Nitrite 2+ (Negative) H Urine Bilirubin Negative (Negative) Urine Urobilinogen Normal mg/dL (Negative) Urine Leukocyte Esterase 3+ /uL (Negative) Urine RBC 1198 /hpf (0 - 3) Urine WBC 170 /hpf (0 - 3) Urine Squamous Epithelial Cells None seen /hpf (<5) Urine Bacteria None seen /hpf (None Seen) Urine Mucus Few (None Seen) Urine Glucose Normal mg/dL (Normal) Microbiology Microbiology Date/Time Source Procedure Growth Status 04/01/24 13:29 Urine - Dial Port Urine Culture - Preliminary Resulted Assessment/Plan Assessment/Plan Hematuria with mild hemoglobin drop BPH status post TRUS Hyperlipidemia Chronic pain Hypertension Dyspepsia Hemoglobin from - We will keep to monitor hemoglobin to make sure that patient does not continue to bleed Resume home medication Urology consult appreciated, cleared by Pain management Diet heart healthy DVT prophylaxis hold Plan discussed with: Patient Date of Service: Apr 02, 2024 Billing Provider: KARTIK WALL MD Common Visit Codes: [id number] INP/OBS CARE(HIGH) KARTIK WALL MD Apr 02, 2024 11:46
[2024-04-03] VITALS (7 sets, daily range): BP systolic 144–166; BP diastolic 64–77; PULSE 64–71; RESP 16–20; TEMP 97.8–98.8; O2SAT 93–95
[2024-04-03] MEDS: DOCUSATE SOD 100 MG CAP PO PRN (03:07)
[2024-04-03 10:26] LABS: Basophils # (auto) 0 10 ^3/uL (0-0.2); Basophils % (auto) 0.5 % (0.0-2.0); Eosinophils # (auto) 0.3 10 ^3/uL (0-0.8); Eosinophils % (auto) 3.9 % (0.0-7.0); Hematocrit 40.1 % (41.0-53.0); Hemoglobin 13.7 g/dL (13.5-17.5); Lymphocytes # (auto) 1.3 10 ^3/uL (0.4-5.4); Mean Corpuscular Hgb Conc. 34.2 g/dL (32.0-36.0); Mean Corpuscular Volume 90.6 fL (80.0-100.0); Monocytes # (auto) 0.5 10 ^3/uL (0-1.3); Monocytes % (auto) 5.4 % (0.0-12.0); Neutrophils # (auto) 6.6 10 ^3/uL (1.6-8.6); Neutrophils % (auto) 75.2 % (37.0-80.0); Platelet Count (auto) 335 10^3/uL (140-450); Red Blood Cells 4.42 10^6/uL (4.5-5.90); Red Cell Distribution Width 13.9 % (11.8-14.3); White Blood Cell 8.8 10^3/uL (4.4-10.8)
[2024-04-03] MEDS: ERTAPENEM SOD INJ 1 GM in SODIUM CHL 0.9% 50 ML IV SCH (12:56)
--- NOTE | 2024-04-03 14:40 | DVHPN2 ---
Subjective 84-year-old male with past medical history of elevated PSA, status post TRUS/PNBX 10/30 with enlarged prostate admitted for BPH with LUTS. Patient came in with blood in the Dial, no issue with catheter draining. Patient has been known to the service and has a scheduled occupation for 04/14. Patient has been cleared by , otherwise significant for hemoglobin drop of 13 -11. Patient is seen by me today during rounds Hemoglobin stable, however urine culture showed ESBL E coli. Social service consulted for home IV antibiotic treatment. Pending acceptance Reviewed: Care Plan, H&P, Labs, Medications, Previous Orders, Radiology Changes from previous H/P or p: No Changes Eyes: No Pain, No Vision change, No Conjunctivae inflammation, No Eyelid inflammation, No Other, No Redness ENT: No Ear pain, No Ear discharge, No Nose pain, No Nose discharge, No Nose congestion, No Mouth pain, No Mouth swelling, No Throat pain, No Throat swelling, No Other Cardiovascular: No Chest Pain, No Palpitations, No Orthopnea, No Paroxysmal Noc. Dyspnea, No Edema, No Lt Headedness, No Other Respiratory: No Cough, No Dry, No Shortness of breath, No SOB with excertion, No Wheezing, No Hemoptysis, No Pleuritic Pain, No Sputum, No Other Gastrointestinal: No Nausea, No Vomiting, No Abdominal Pain, No Diarrhea, No Constipation, No Melena, No Hematochezia, No Other Genitourinary: No Dysuria, No Frequency, No Incontinence; Hematuria; No Retention, No Other Musculoskeletal: No other, No neck pain, No shoulder pain, No arm pain, No back pain, No hand pain, No leg pain, No foot pain Skin: No Rash, No Lesions, No Jaundice, No Bruising, No Other Objective Vitals Vital Signs Date Time Temp Pulse Resp B/P (MAP) Pulse Ox O2 Delivery O2 Flow Rate FiO2 04/03/24 12:41 97.8 66 20 166/67 (100) 95 97.8 04/03/24 08:00 Room Air* 0 21 Intake/Output Intake and Output 04/03/24 07:00 Intake Total 2225 ml Output Total 3419 ml Balance -1194 ml Intake Oral 2175 ml IV Total 50 ml Output Urine Total 3419 ml Exam Alert, oriented x3 PERRLA No JVD Clear breath sounds bilaterally S1-S2 regular rate and rhythm no murmur Abdomen soft nontender, no hepatomegaly Equal strength bilaterally on upper and lower extremities Dial intact No lower extremity edema Medications Current Medications Medications Dose Ordered Sig/Zohreh Route Start Time Stop Time Status Last Admin Dose Admin Acetaminophen/ Hydrocodone Bitart 1 tab Q4HP PRN PO 04/01/24 16:00 04/02/24 01:51 1 TAB Ondansetron HCl 4 mg Q4HP PRN IV 04/01/24 16:00 Docusate Sodium 100 mg BIDPRN PRN PO 04/01/24 16:00 04/03/24 03:07 100 MG Acetaminophen 650 mg Q6HP PRN PO 04/01/24 16:00 04/03/24 12:48 650 MG Nitroglycerin 0.4 mg Q5MINP PRN SL 04/01/24 16:00 Morphine Sulfate 2 mg Q30M PRN IV 04/01/24 16:00 Ertapenem 1 gm/ Sodium Chloride 50 ml @ 100 mls/hr DAILY@1000 IV 04/03/24 12:00 04/03/24 12:56 100 MLS/HR Laboratory Results Laboratory Tests 04/02/24 05:56 04/03/24 09:17 Urinalysis Test 04/01/24 13:29 Urine Color Light-orange (Yellow) Urine Clarity Turbid (Clear) H Urine pH 7.0 (5.0-9.0) Urine Specific [place] 1.017 (1.001-1.035) Urine Protein 1+ (Negative) H Urine Ketones Negative (Negative) Urine Blood 3+ /uL (Negative) H Urine Nitrite 2+ (Negative) H Urine Bilirubin Negative (Negative) Urine Urobilinogen Normal mg/dL (Negative) Urine Leukocyte Esterase 3+ /uL (Negative) Urine RBC 1198 /hpf (0 - 3) Urine WBC 170 /hpf (0 - 3) Urine Squamous Epithelial Cells None seen /hpf (<5) Urine Bacteria None seen /hpf (None Seen) Urine Mucus Few (None Seen) Urine Glucose Normal mg/dL (Normal) Microbiology Microbiology Date/Time Source Procedure Growth Status 04/01/24 13:29 Urine - Dial Port Urine Culture - Final Escherichia coli - ESBL Complete Labs and/or images reviewed: Labs reviewed by me, Image(s) reviewed by me Assessment/Plan Assessment/Plan Hematuria with mild hemoglobin drop BPH status post TRUS Hyperlipidemia Chronic pain Hypertension Dyspepsia Hemoglobin drop ESBL E coli UTI Hemoglobin now stable Continue trending H and H Start ertapenem Resume home medication Urology consult appreciated, cleared by Pain management Social service consult for home ertapenem Diet heart healthy DVT prophylaxis hold Plan discussed with: Patient (Yes please perfect thank you so much) My Orders Orders - KARTIK WALL MD Procedure Category Date Status Time Ertapenem Sod Inj PHA 04/03/24 In Process (Invanz) 12:00 * Nnp CONS 04/03/24 Transmitted Consult 11:56 * Nnp CONS 04/03/24 Transmitted Consult Date of Service: Apr 03, 2024 Billing Provider: KARTIK WALL MD Common Visit Codes: [id number] INP/OBS CARE(MOD) KARTIK WALL MD Apr 03, 2024 14:40
[2024-04-04] VITALS (8 sets, daily range): BP systolic 113–127; BP diastolic 63–72; PULSE 57–82; RESP 17–18; TEMP 98.2–98.9; O2SAT 93–97
--- NOTE | 2024-04-04 18:27 | DVHPN2 ---
Subjective 84-year-old male with past medical history of elevated PSA, status post TRUS/PNBX 10/30 with enlarged prostate admitted for BPH with LUTS. Patient came in with blood in the Dial, no issue with catheter draining. Patient has been known to the service and has a scheduled occupation for 04/14. Patient has been cleared by , otherwise significant for hemoglobin drop of 13 -11. Patient is seen by me today during rounds Accepted for home IV antibiotic treatment, place midline today, patient can be discharged tomorrow Reviewed: Care Plan, H&P, Labs, Medications, Previous Orders, Radiology Changes from previous H/P or p: No Changes Eyes: No Pain, No Vision change, No Conjunctivae inflammation, No Eyelid inflammation, No Other, No Redness ENT: No Ear pain, No Ear discharge, No Nose pain, No Nose discharge, No Nose congestion, No Mouth pain, No Mouth swelling, No Throat pain, No Throat swelling, No Other Cardiovascular: No Chest Pain, No Palpitations, No Orthopnea, No Paroxysmal Noc. Dyspnea, No Edema, No Lt Headedness, No Other Respiratory: No Cough, No Dry, No Shortness of breath, No SOB with excertion, No Wheezing, No Hemoptysis, No Pleuritic Pain, No Sputum, No Other Gastrointestinal: No Nausea, No Vomiting, No Abdominal Pain, No Diarrhea, No Constipation, No Melena, No Hematochezia, No Other Genitourinary: No Dysuria, No Frequency, No Incontinence; Hematuria; No Retention, No Other Musculoskeletal: No other, No neck pain, No shoulder pain, No arm pain, No back pain, No hand pain, No leg pain, No foot pain Skin: No Rash, No Lesions, No Jaundice, No Bruising, No Other Objective Vitals Vital Signs Date Time Temp Pulse Resp B/P (MAP) Pulse Ox O2 Delivery O2 Flow Rate FiO2 04/04/24 13:00 98.9 75 18 127/72 (90) 94 98.9 04/04/24 08:53 Room Air* 0 21 Intake/Output Intake and Output 04/04/24 03:59 Intake Total 2400 ml Output Total 2800 ml Balance -400 ml Intake Oral 2350 ml IV Total 50 ml Output Urine Total 2800 ml Exam Alert, oriented x3 PERRLA No JVD Clear breath sounds bilaterally S1-S2 regular rate and rhythm no murmur Abdomen soft nontender, no hepatomegaly Equal strength bilaterally on upper and lower extremities Dial intact No lower extremity edema Medications Current Medications Medications Dose Ordered Sig/Zohreh Route Start Time Stop Time Status Last Admin Dose Admin Acetaminophen/ Hydrocodone Bitart 1 tab Q4HP PRN PO 04/01/24 16:00 04/02/24 01:51 1 TAB Ondansetron HCl 4 mg Q4HP PRN IV 04/01/24 16:00 Docusate Sodium 100 mg BIDPRN PRN PO 04/01/24 16:00 04/03/24 18:16 100 MG Acetaminophen 650 mg Q6HP PRN PO 04/01/24 16:00 04/04/24 09:27 650 MG Nitroglycerin 0.4 mg Q5MINP PRN SL 04/01/24 16:00 Morphine Sulfate 2 mg Q30M PRN IV 04/01/24 16:00 Ertapenem 1 gm/ Sodium Chloride 50 ml @ 100 mls/hr DAILY@1000 IV 04/03/24 12:00 04/04/24 09:26 100 MLS/HR Laboratory Results Laboratory Tests 04/02/24 05:56 04/03/24 09:17 Urinalysis Test 04/01/24 13:29 Urine Color Light-orange (Yellow) Urine Clarity Turbid (Clear) H Urine pH 7.0 (5.0-9.0) Urine Specific [place] 1.017 (1.001-1.035) Urine Protein 1+ (Negative) H Urine Ketones Negative (Negative) Urine Blood 3+ /uL (Negative) H Urine Nitrite 2+ (Negative) H Urine Bilirubin Negative (Negative) Urine Urobilinogen Normal mg/dL (Negative) Urine Leukocyte Esterase 3+ /uL (Negative) Urine RBC 1198 /hpf (0 - 3) Urine WBC 170 /hpf (0 - 3) Urine Squamous Epithelial Cells None seen /hpf (<5) Urine Bacteria None seen /hpf (None Seen) Urine Mucus Few (None Seen) Urine Glucose Normal mg/dL (Normal) Microbiology Microbiology Date/Time Source Procedure Growth Status 04/01/24 13:29 Urine - Dial Port Urine Culture - Final Escherichia coli - ESBL Complete Labs and/or images reviewed: Labs reviewed by me, Image(s) reviewed by me Assessment/Plan Assessment/Plan Hematuria with mild hemoglobin drop BPH status post TRUS Hyperlipidemia Chronic pain Hypertension Dyspepsia Hemoglobin drop ESBL E coli UTI Hemoglobin now stable Continue trending H and H Start ertapenem Resume home medication Urology consult appreciated, cleared by Pain management S patient accepted for home IV antibiotics Insert midline Can be discharged tomorrow Diet heart healthy DVT prophylaxis hold Plan discussed with: Patient My Orders Orders - KARTIK WALL MD Procedure Category Date Status Time Insert Midline ORDERS 04/04/24 Transmitted 10:06 Date of Service: Apr 04, 2024 Billing Provider: KARTIK WALL MD Common Visit Codes: [id number] INP/OBS CARE(MOD) KARTIK WALL MD Apr 04, 2024 18:27
[2024-04-05 01:00] VITALS: BP 112/72; PULSE 70; RESP 17; TEMP 97.6; O2SAT 94
[2024-04-05 05:00] VITALS: BP 118/50; PULSE 68; RESP 17; TEMP 97.7; O2SAT 93
[2024-04-05 09:00] VITALS: BP 133/70; PULSE 74; RESP 16; TEMP 97.7; O2SAT 94
[2024-04-05 13:00] VITALS: BP 127/62; PULSE 86; RESP 18; TEMP 97.4; O2SAT 95
[2024-04-05 15:07] VITALS: BP 127/62; PULSE 86; RESP 18; TEMP 97.4; O2SAT 95
--- NOTE | 2024-04-05 20:16 | DVHDS2 ---
Discharge Summary Date of Admission Apr 01, 2024 at 15:58 Date of Discharge: Apr 05, 2024 Labs/Diagnostic Data: Laboratory Results Test 04/03/24 09:17 04/02/24 05:56 04/01/24 14:15 04/01/24 13:29 White Blood Count 8.8 10^3/uL (4.4-10.8) Red Blood Count 4.42 10^6/uL (4.5-5.90) Hemoglobin 13.7 g/dL (13.5-17.5) Hematocrit 40.1 % (41.0-53.0) Mean Corpuscular Volume 90.6 fL (80.0-100.0) Mean Corpuscular Hemoglobin 31.0 pg (28.0-32.0) Mean Corpuscular Hemoglobin Concent 34.2 g/dL (32.0-36.0) Red Cell Distribution Width 13.9 % (11.8-14.3) Platelet Count 335 10^3/uL (140-450) Mean Platelet Volume 7.6 fL (6.9-10.8) Neutrophils (%) (Auto) 75.2 % (37.0-80.0) Lymphocytes (%) (Auto) 15.0 % (10.0-50.0) Monocytes (%) (Auto) 5.4 % (0.0-12.0) Eosinophils (%) (Auto) 3.9 % (0.0-7.0) Basophils (%) (Auto) 0.5 % (0.0-2.0) Neutrophils # (Auto) 6.6 10 ^3/uL (1.6-8.6) Lymphocytes # (Auto) 1.3 10 ^3/uL (0.4-5.4) Monocytes # (Auto) 0.5 10 ^3/uL (0-1.3) Eosinophils # (Auto) 0.3 10 ^3/uL (0-0.8) Basophils # (Auto) 0 10 ^3/uL (0-0.2) Nucleated Red Blood Cells 0.0 % Sodium Level 138 mmol/L (136-145) Potassium Level 4.1 mmol/L (3.5-5.1) Chloride Level 110 mmol/L (98-107) Carbon Dioxide Level 26 mmol/L (20-31) Anion Gap 2 (5-15) Blood Urea Nitrogen 12 mg/dL (9-23) Creatinine 0.75 mg/dL (0.700-1.30) Glomerular Filtration Rate Calc 90 mL/min (>90) BUN/Creatinine Ratio 16.0 (10.0-20.0) Serum Glucose 86 mg/dL (74-106) Calcium Level 9.3 mg/dL (8.7-10.4) Total Bilirubin 0.6 mg/dL (0.2-1.0) Aspartate Amino Transferase (AST) 48 U/L (13-40) Alanine Aminotransferase (ALT) 36 U/L (7-40) Alkaline Phosphatase 67 U/L (46-116) Total Protein 6.3 g/dL (5.7-8.2) Albumin 3.7 g/dL (3.2-4.8) Lactic Acid Level 1.1 mmol/L (0.4-2.0) Urine Color Light-orange (Yellow) Urine Clarity Turbid (Clear) Urine pH 7.0 (5.0-9.0) Urine Specific [place] 1.017 (1.001-1.035) Urine Protein 1+ (Negative) Urine Ketones Negative (Negative) Urine Blood 3+ /uL (Negative) Urine Nitrite 2+ (Negative) Urine Bilirubin Negative (Negative) Urine Urobilinogen Normal mg/dL (Negative) Urine Leukocyte Esterase 3+ /uL (Negative) Urine RBC 1198 /hpf (0 - 3) Urine WBC 170 /hpf (0 - 3) Urine Squamous Epithelial Cells None seen /hpf (<5) Urine Bacteria None seen /hpf (None Seen) Urine Mucus Few (None Seen) Urine Glucose Normal mg/dL (Normal) Test 04/01/24 11:09 Troponin I High Sensitivity 5 ng/L (</=54) Other Laboratory Tests 04/03/24 09:17 04/02/24 05:56 Brief Hx & Hospital Course: 84-year-old male with indwelling Darling, admitted for Darling dysfunction and hematuria. Darling exchanged, urology seen the patient and we will follow up with the patient outpatient, found ESBL UTI in the urine started on ertapenem and we will continue ertapenem with home IV antibiotics services. Condition at Discharge: Good Final Diagnosis/Problems List esbl uti darling malfunction Discharge Disposition: Home with Health Services Discharge Instruct/Medications Diet: Regular Activity: No Restrictions, As Tolerated Follow Up/Referral: follow up with dr Gould Medications: IV ertapenem daily for 5 days Discharge Statement: "Patient was advised to return to the ER or call 911 if any headaches, dizziness, shortness of breath, chest pain, abdominal pain, bleeding, fevers, or worsening of medical condition. Patient was counseled about treatment plan, medications, possible side effects, patientverbalized understanding. All questions were answered to the best of my ability. This discharge took greater then 30 minutes in planning, reviewing documentation, counseling the patient, and discussing with other team members." ASSESSMENT ASSESSMENT Assessment esbl uti darling malfunction Date of Service: Apr 05, 2024 Billing Provider: KARTIK WALL MD Common Visit Codes: [id number] DISCH DAY >30min KARTIK WALL MD Apr 05, 2024 20:16
== END 2024-04-05 16:00 | disposition home health service (06) | DRG 699 ==
LOC: ER 10:44 → OVERFLOW 15:58 → EAST 19:02 → WEST WING 04-04 23:44
PROVIDERS: ADMIT Nurse Practitioner Family; ATTEND Student in an Organized Health Care Education/Training Program
PROC: 05HD33Z Insertion of Infusion Device into Right Cephalic Vein, Percutaneous Approach (ICD-10-PCS; principal; 2024-04-04)
PROC: B54MZZA Ultrasonography of Right Upper Extremity Veins, Guidance (ICD-10-PCS; 2024-04-04)
DX: T83.511A Infection and inflammatory reaction due to indwelling urethral catheter, initial encounter (principal); R71.0 Precipitous drop in hematocrit; Z16.12 Extended spectrum beta lactamase (ESBL) resistance; T83.011A Breakdown (mechanical) of indwelling urethral catheter, initial encounter; N39.0 Urinary tract infection, site not specified; N40.1 Benign prostatic hyperplasia with lower urinary tract symptoms; E78.5 Hyperlipidemia, unspecified; G89.29 Other chronic pain; I10 Essential (primary) hypertension; B96.20 Unspecified Escherichia coli [E. coli] as the cause of diseases classified elsewhere; Z79.899 Other long term (current) drug therapy; Y84.8 Other medical procedures as the cause of abnormal reaction of the patient, or of later complication, without mention of misadventure at the time of the procedure; Y92.89 Other specified places as the place of occurrence of the external cause
CPT/HCPCS: 36415; 80048; 80053; 81001; 83605; 84484; 85025; 87086; 87088; 87186; 96365; G0378; J1335

== ENCOUNTER 2024-04-12 14:02 | Inpatient (IN) | payer MEDICARE, MEDICAID ==
[~2024-04-12] VITALS: Ht 167.6 cm; Wt 76.1 kg
[2024-04-12] MEDS: SODIUM CHLORIDE 0.9% 1,000 ML IV ONE (15:30)
--- NOTE | 2024-04-12 15:31 | ED.PDOC ---
General HPI Comments 84-year-old male brought in by spouse presents with a chief complaint of hematuria. Patients spouse reports that patient had a darling catheter placed x 1 week ago and went today to their PMD due to it leaking. Patients PMD referred them to ER because there was gross hematuria. Patient is non-verbal and at baseline according to spouse. Patient and spouse are Hungarian-speaking. Chief Complaint: Urinary Time Seen by MD: 15:04 Primary Care Provider: OTIS Lacy notes: Medications, Allergies Allergies: Coded Allergies: NO KNOWN ALLERGIES (Unverified , 03/03/16) Home Meds Active Scripts Docusate Sodium (Colace) 100 Mg Cap, 1 CAP PO BID, #30 CAP Prov:KELSEY ROSE NP 03/26/24 Methocarbamol (Methocarbamol) 750 Mg Tab, 750 MG PO TID, #30 TAB Prov:JAMIL ARNETT MD 02/06/22 Hydromorphone Hcl (Dilaudid) 2 Mg Tab, 1 TAB PO TID PRN, #30 TAB Prov:JAMIL ARNETT MD 02/06/22 Gabapentin (Gabapentin) 300 Mg Cap, 1 CAP PO TID for 30 Days, #90 CAP 5 Refills Prov:YESSI LEON MD 01/05/22 Folic Onnx-Stzbimvhcv-Otvtciod (Folbic) Tab, 1 TAB PO DAILY, #90 TAB 3 Refills Prov:YESSI LEON MD 01/05/22 Reported Medications Quetiapine Fumerate (Seroquel) 50 Mg Tab, 25 MG PO DAILY, TAB 03/24/24 Tamsulosin Hcl (Tamsulosin Hcl) 0.4 Mg Cap, 0.4 NG PO DAILY 03/24/24 Multiple Vitamin (Multivitamins) Cap, 1 CAP PO DAILY, CAP 12/04/20 Pantoprazole Sodium Sesquihydr (Protonix) 40 Mg Tab, 40 MG PO DAILY, #30 TAB 12/04/20 Magnesium Oxide (MAGNESIUM OXIDE) 400 Mg Tab, 400 MG PO DAILY, TAB 12/04/20 Hydrochlorothiazide (Hydrochlorothiazide) 25 Mg Tab, 25 MG PO DAILY, TAB 12/04/20 Atorvastatin Calcium (Lipitor) 20 Mg Tab, 20 MG PO DAILY, TAB 12/04/20 Losartan Potassium (Losartan Potassium) 50 Mg Tab, 50 MG PO DAILY, TAB 12/04/20 Information Source: Spouse Mode of Arrival: Wheelchair Severity: Moderate Inability to void: None Timing: Days Duration: Since onset Has not urinated for: Minutes Prehospital treatment: None Onset: Spontaneous Symptoms: Hematuria History of: Chronic indwelling darling Penile discharge: None Modifying factors: None associated signs and symptoms: Hematuria Past Medical History PAST MEDICAL HISTORY: Denies Surgical History: Appendectomy Family History Family History: Reviewed,noncontributory to illness Social History Smoker: Non-Smoker Alcohol: Denies ETOH Use Drugs: Denies Drug Use Lives In: Home Constitutional: denies: chills, diaphoresis, fatigue, fever, malaise, sweats, weakness, others EENTM: denies: blurred vision, double vision, ear bleeding, ear discharge, ear drainage, ear pain, ear ringing, eye pain, eye redness, hearing loss, mouth pain, mouth swelling, nasal discharge, nose bleeding, nose congestion, nose pain, photophobia, tearing, throat pain, throat swelling, voice changes, others Respiratory: denies: cough, hemoptysis, orthopnea, SOB at rest, shortness of breath, SOB with excertion, stridor, wheezing, others Cardiovascular: denies: chest pain, dizzy spells, diaphoresis, Dyspnea on exertion, edema, irregular heart beat, left arm pain, lightheadedness, palpitations, PND, syncope, others Gastrointestinal: denies: abdomen distended, abdominal pain, blood streaked bowels, constipated, diarrhea, dysphagia, difficulty swallowing, hematemesis, melena, nausea, poor appetite, poor fluid intake, rectal bleeding, rectal pain, vomiting, others Genitourinary: reports: hematuria; denies: burning, dysuria, flank pain, frequency, incontinence, penile discharge, penile sore, pain, testicle pain, testicle swelling, urgency, others Neurological: denies: dizziness, fainting, headache, left sided numbness, left sided weakness, numbness, paresthesia, pre-existing deficit, right sided numbness, right sided weakness, seizure, speech problems, tingling, tremors, weakness, others Musculoskeletal: denies: back pain, gout, joint pain, joint swelling, muscle pain, muscle stiffness, neck pain, others Integumetry: denies: bruises, change in color, change in hair/nails, dryness, laceration, lesions, lumps, rash, wounds, others Allergic/Immunocompromised: denies: Difficulty Healing, Frequent Infections, Hives, Itching, others Hematologic/Lymphatic: denies: anemia, blood clots, easy bleeding, easy bruising, swollen glands, others Endocrine: denies: excessive hunger, excessive sweating, excessive thirst, excessive urination, flushing, intolerance to cold, intolerance to heat, unexplained weight gain, unexplained weight loss, others Psychiatric: denies: anxiety, bipolar disorder, depression, hopeless, panic disorder, schizophrenia, sleepless, suicidal, others All Other Systems: Reviewed and Negative Physical Exam General Appearance: Mild Distress, Moderate Distress, Other (Somnolent wheelchair binder) HEENT: Normal ENT Inspection, Pale Conjuntivae (L), Pale Conjuntivae (R), PERRL/EOMI, Pharynx Normal, TMs Normal Neck: Full Range of Motion, Non-Tender, Normal, Normal Inspection Respiratory: Chest Non-Tender, Lungs Clear, No Accessory Muscle Use, No Respiratory Distress, Normal Breath Sounds Cardiovascular: No Edema, No JVD, No Murmur, No Gallop, Normal Peripheral Pulses, Regular Rate/Rhythm Breast Exam: Deferred Gastrointestinal: No Organomegaly, Non Tender, No Pulsatile Mass, Normal Bowel Sounds, Soft Genitalia: Other (Hematuria Darling catheter in) Pelvic: Deferred Rectal: Deferred Extremities: Decreased range of motion, No calf tenderness, Normal inspection, Non-tender, No pedal edema, Other (Wheelchair bound) Musculoskeletal : Apperance: Normal Neurologic: Depressed Affect, Motor Weakness, Normal Mood, No Sensory Deficits, Speech Problem, Other (Sudden no known) Cerebellar Function: NOT DONE Reflexes: NOT DONE Skin: Dry, Normal Color, Warm Peripheral Pulses: 1+ carotid (R), 1+ carotid (L) Lymphatic: No Adenopathy Was a procedure done? Was a procedure done?: No Differential Diagnosis Kidney stone (Female): N/A Kidney stone (Male): Pancreatitis, Renal failure, Urinary obstruction, Urinary tract infection Penile/Scrotal: Prostatitis, UTI Urinary Problem (Male): Bladder Outlet, Bladder Obstruction, Prostatitis, Plelonephritis, Urinary Retention, UTI, Other (Gross hematuria), N/A Urinary Problem (Female): N/A X-Ray, Labs, Meds, VS Vital Signs Date Time Temp Pulse Resp B/P (MAP) Pulse Ox O2 Delivery O2 Flow Rate FiO2 04/12/24 16:00 93 16 94 Room Air 04/12/24 16:00 98.1 93 16 150/69 (96) 95 98.1 04/12/24 14:19 98.3 87 17 160/77 (104) 95 Lab Test 04/12/24 18:57 04/12/24 16:05 Range/Units Urine Color Red H Yellow Urine Clarity Ex.turbid Clear Urine pH 6.0 5.0-9.0 Urine Specific [place] 1.018 1.001-1.035 Urine Protein 2+ H Negative Urine Ketones Negative Negative Urine Blood 3+ H Negative /uL Urine Nitrite Negative Negative Urine Bilirubin Negative Negative Urine Urobilinogen Normal Negative mg/dL Urine Leukocyte Esterase 2+ Negative /uL Urine RBC 3728 0 - 3 /hpf Urine WBC 880 0 - 3 /hpf Urine Squamous Epithelial Cells None seen <5 /hpf Urine Bacteria None seen None Seen /hpf Urine Mucus Few None Seen Urine Glucose Normal Normal mg/dL White Blood Count 8.5 4.4-10.8 10^3/uL Red Blood Count 4.25 L 4.5-5.90 10^6/uL Hemoglobin 13.2 L 13.5-17.5 g/dL Hematocrit 38.4 L 41.0-53.0 % Mean Corpuscular Volume 90.3 80.0-100.0 fL Mean Corpuscular Hemoglobin 31.2 28.0-32.0 pg Mean Corpuscular Hemoglobin Concent 34.5 32.0-36.0 g/dL Red Cell Distribution Width 13.8 11.8-14.3 % Platelet Count 361 140-450 10^3/uL Mean Platelet Volume 7.5 6.9-10.8 fL Neutrophils (%) (Auto) 81.3 H 37.0-80.0 % Lymphocytes (%) (Auto) 11.5 10.0-50.0 % Monocytes (%) (Auto) 4.6 0.0-12.0 % Eosinophils (%) (Auto) 2.0 0.0-7.0 % Basophils (%) (Auto) 0.6 0.0-2.0 % Neutrophils # (Auto) 6.9 1.6-8.6 10 ^3/uL Lymphocytes # (Auto) 1.0 0.4-5.4 10 ^3/uL Monocytes # (Auto) 0.4 0-1.3 10 ^3/uL Eosinophils # (Auto) 0.2 0-0.8 10 ^3/uL Basophils # (Auto) 0.1 0-0.2 10 ^3/uL Nucleated Red Blood Cells 0.0 % Sodium Level 135 L 136-145 mmol/L Potassium Level 4.0 3.5-5.1 mmol/L Chloride Level 103 98-107 mmol/L Carbon Dioxide Level 26 20-31 mmol/L Anion Gap 6 5-15 Blood Urea Nitrogen 11 9-23 mg/dL Creatinine 0.79 0.700-1.30 mg/dL Glomerular Filtration Rate Calc 88 >90 mL/min BUN/Creatinine Ratio 13.9 10.0-20.0 Serum Glucose 159 H 74-106 mg/dL Calcium Level 9.8 8.7-10.4 mg/dL Time of 1ST Reevaluation: 15:34 Reevaluation 1ST: Unchanged Patient Education/Counseling: Diagnosis, Treatment, Prognosis Family Education/Counseling: Diagnosis, Treatment, Prognosis Departure 1 Departure Time of Disposition: 20:32 (Patient with worsening hematuria unlikely infectious etiology. We will treat patient with antibiotics admit patient for further workup and expert consultation) Impression: Primary Impression: Acute cystitis Qualified Codes: N30.01 - Acute cystitis with hematuria Additional Impressions: Hematuria Qualified Codes: R31.0 - Gross hematuria Acute urinary retention Disposition: ADMITTED INPATIENT Admit to: Med Surg Condition: Serious Critical Care Note Critical Care Time?: No Stability Stability form required: No I personally scribed for YESSI LEON MD ([email or web address]) on 04/12/24 at 15:31. Electronically submitted by Osmel Wakefield ([email or web address]). I personally scribed for YESSI LEON MD ([email or web address]) on 04/12/24 at 15:32. Electronically submitted by Osmel Wakefield ([email or web address]). YESSI LEON MD Apr 12, 2024 15:31 RUPA TERRY MD Apr 12, 2024 20:33
[2024-04-12 16:32] LABS: Basophils # (auto) 0.1 10 ^3/uL (0-0.2); Basophils % (auto) 0.6 % (0.0-2.0); Eosinophils # (auto) 0.2 10 ^3/uL (0-0.8); Hematocrit 38.4 % (41.0-53.0); Hemoglobin 13.2 g/dL (13.5-17.5); Lymphocytes % (auto) 11.5 % (10.0-50.0); Mean Corpuscular Hemoglobin 31.2 pg (28.0-32.0); Mean Corpuscular Hgb Conc. 34.5 g/dL (32.0-36.0); Mean Corpuscular Volume 90.3 fL (80.0-100.0); Monocytes # (auto) 0.4 10 ^3/uL (0-1.3); Monocytes % (auto) 4.6 % (0.0-12.0); Neutrophils # (auto) 6.9 10 ^3/uL (1.6-8.6); Neutrophils % (auto) 81.3 % (37.0-80.0); Platelet Count (auto) 361 10^3/uL (140-450); Red Blood Cells 4.25 10^6/uL (4.5-5.90); Red Cell Distribution Width 13.8 % (11.8-14.3); White Blood Cell 8.5 10^3/uL (4.4-10.8)
[2024-04-12 16:49] LABS: Chloride 103 mmol/L (98-107); Sodium 135 mmol/L (136-145)
[2024-04-12 16:50] LABS: Anion Gap 6 (5-15); Calcium 9.8 mg/dL (8.7-10.4); Carbon Dioxide 26 mmol/L (20-31)
[2024-04-12 16:55] LABS: BUN/Creatinine Ratio 13.9 (10.0-20.0); Blood Urea Nitrogen 11 mg/dL (9-23); Glucose 159 mg/dL (74-106)
[2024-04-12 19:09] LABS: Urine Bacteria None Seen /hpf (None Seen)
[2024-04-12 19:39] LABS: Urine Blood 3+ /uL (Negative); Urine Clarity Ex.Turbid (Clear); Urine Color Red (Yellow); Urine Mucus FEW (None Seen); Urine Protein, UAD 2+ (Negative); Urine Specific Gravity 1.018 (1.001-1.035); Urine Urobilinogen Normal (Negative); Urine WBC 880 /hpf (0 - 3)
[2024-04-12] MEDS: cefTRIAXone 1GM/50ML D5W 50 ML IV ONE (21:13)
[2024-04-12] MEDS ORDERED: ONDANSETRON HCL 4 MG/2 ML VIAL IV PRN (21:30)
[2024-04-12] MEDS: SODIUM CHLORIDE 0.9% 1,000 ML IV SCH (21:30)
[2024-04-12] MEDS ORDERED: MORPHINE SULFATE INJ 2 MG/ml SYRG IV PRN (21:30)
[2024-04-12] MEDS ORDERED: NITROGLYCERIN 0.4 MG SL TAB SL PRN (21:30)
[2024-04-12] MEDS: HYDROcodone-ACET 5/325MG TAB PO PRN (21:43)
--- NOTE | 2024-04-12 21:50 | DVHHPRES ---
History of Present Illness Resident Creating Document: RUCHI MANLEY RESIDENT History of Present Illness Poor historian and Citizen Of [place] speaking This is a 84-year-old male with past medical history of BPH, s/p TRUS/PNBX , urinary retention with status post Darling, peripheral neuropathy, scoliosis presented to the ED with a chief complaint of hematuria. According to the patient he was experiencing intermittent hematuria for last 5 days prior to this admission and today he was referred from his PCP to come to the ER. [facility]24 with a diagnosis of ESBL UTI and was prescribed to continue IV ertapenem 1 g daily for 5 days. He has been following up with Dr. Gould for elevated PSA with enlarged prostate and scheduled for aqua ablation of prostate on 04/14/24. The patient also complaining of tingling, numbness and burning sensation in both legs for the same duration. The patient denies chest pain, shortness of breath, dizziness, diaphoresis, any blood thinner use, abdominal pain, nausea, vomiting, hematemesis, blood in stool and hematochezia. PCP: Dr. Caceres Past Medical History BPH, peripheral neuropathy, scoliosis Past Surgical History TURS Family History: None Smoke: No ALCOHOL: none Drugs: None Lives: with Family Review of Systems Constitutional: No: Fever, Chills, Sweats, Weakness, Malaise, Other Eyes: No: Pain, Vision change, Conjunctivae inflammation, Eyelid inflammation, Other, Redness ENT: No: Ear pain, Ear discharge, Nose pain, Nose discharge, Nose congestion, Mouth pain, Mouth swelling, Throat pain, Throat swelling, Other Respiratory: No: Cough, Dry, Shortness of breath, SOB with excertion, Wheezing, Hemoptysis, Pleuritic Pain, Sputum, Wheezing, Other Cardiovascular: No: Chest Pain, Palpitations, Orthopnea, Paroxysmal Noc. Dyspnea, Edema, Lt Headedness, Other Genitourinary: No Dysuria, No Frequency, No Incontinence; Hematuria, Retention; No Other Musculoskeletal: No: other, neck pain, shoulder pain, arm pain, back pain, hand pain, leg pain, foot pain Skin: No: Rash, Lesions, Jaundice, Bruising, Other Neurological: No: Weakness, Numbness, Incoordination, Change in speech, Confusion, Seizures, Other Allergies: Coded Allergies: NO KNOWN ALLERGIES (Unverified , 03/03/16) Medications Current Medications Medications Dose Ordered Sig/Zohreh Route Start Time Stop Time Status Last Admin Dose Admin Sodium Chloride 1,000 ml @ 75 mls/hr [id number] IV 04/12/24 21:30 Acetaminophen 325 mg Q4HP PRN PO 04/12/24 21:30 Acetaminophen/ Hydrocodone Bitart 1 tab Q4HP PRN PO 04/12/24 21:30 04/12/24 21:43 1 TAB Ondansetron HCl 4 mg Q4HP PRN IV 04/12/24 21:30 Nitroglycerin 0.4 mg Q5MINP PRN SL 04/12/24 21:30 Morphine Sulfate 2 mg Q30M PRN IV 04/12/24 21:30 Ertapenem 1 gm/ Sodium Chloride 50 ml @ 100 mls/hr DAILY IV 04/13/24 10:00 UNV Exam Vital Signs Vital Signs Date Time Temp Pulse Resp B/P (MAP) Pulse Ox O2 Delivery O2 Flow Rate FiO2 04/12/24 20:01 86 04/12/24 16:00 16 94 Room Air 04/12/24 16:00 98.1 150/69 (96) 98.1 Exam Physical examination: General Appearance: Alert, Oriented X3, Cooperative, No acute distress HEENT: Atraumatic, PERRLA, EOMI, Mucous membrane moist/pink Respiratory: Clear to auscultation, Normal air movement Cardiovascular: Regular rate, Normal S1, Normal S2, No murmurs, no chest wall tenderness Abdominal: Normal bowel sounds, Soft, No tenderness, No hepatospenomegaly, No masses Extremities: No clubbing, No cyanosis, No edema, Normal pulses, No tenderness/swelling Skin: No rashes, No breakdown, No significant lesion Neuro: Normal speech, Strength at 5/5 X4 ext, Normal tone, Sensation intact, grossly intact cranial nerves Psych/Mental Status: Mental status NL, Mood NL Labs/Xrays Labs Test 04/12/24 18:57 04/12/24 16:05 Range/Units Urine Color Red H Yellow Urine Clarity Ex.turbid Clear Urine pH 6.0 5.0-9.0 Urine Specific [place] 1.018 1.001-1.035 Urine Protein 2+ H Negative Urine Ketones Negative Negative Urine Blood 3+ H Negative /uL Urine Nitrite Negative Negative Urine Bilirubin Negative Negative Urine Urobilinogen Normal Negative mg/dL Urine Leukocyte Esterase 2+ Negative /uL Urine RBC 3728 0 - 3 /hpf Urine WBC 880 0 - 3 /hpf Urine Squamous Epithelial Cells None seen <5 /hpf Urine Bacteria None seen None Seen /hpf Urine Mucus Few None Seen Urine Glucose Normal Normal mg/dL White Blood Count 8.5 4.4-10.8 10^3/uL Red Blood Count 4.25 L 4.5-5.90 10^6/uL Hemoglobin 13.2 L 13.5-17.5 g/dL Hematocrit 38.4 L 41.0-53.0 % Mean Corpuscular Volume 90.3 80.0-100.0 fL Mean Corpuscular Hemoglobin 31.2 28.0-32.0 pg Mean Corpuscular Hemoglobin Concent 34.5 32.0-36.0 g/dL Red Cell Distribution Width 13.8 11.8-14.3 % Platelet Count 361 140-450 10^3/uL Mean Platelet Volume 7.5 6.9-10.8 fL Neutrophils (%) (Auto) 81.3 H 37.0-80.0 % Lymphocytes (%) (Auto) 11.5 10.0-50.0 % Monocytes (%) (Auto) 4.6 0.0-12.0 % Eosinophils (%) (Auto) 2.0 0.0-7.0 % Basophils (%) (Auto) 0.6 0.0-2.0 % Neutrophils # (Auto) 6.9 1.6-8.6 10 ^3/uL Lymphocytes # (Auto) 1.0 0.4-5.4 10 ^3/uL Monocytes # (Auto) 0.4 0-1.3 10 ^3/uL Eosinophils # (Auto) 0.2 0-0.8 10 ^3/uL Basophils # (Auto) 0.1 0-0.2 10 ^3/uL Nucleated Red Blood Cells 0.0 % Sodium Level 135 L 136-145 mmol/L Potassium Level 4.0 3.5-5.1 mmol/L Chloride Level 103 98-107 mmol/L Carbon Dioxide Level 26 20-31 mmol/L Anion Gap 6 5-15 Blood Urea Nitrogen 11 9-23 mg/dL Creatinine 0.79 0.700-1.30 mg/dL Glomerular Filtration Rate Calc 88 >90 mL/min BUN/Creatinine Ratio 13.9 10.0-20.0 Serum Glucose 159 H 74-106 mg/dL Calcium Level 9.8 8.7-10.4 mg/dL Assessment/Plan Assessment/Plan Assessment and plan: # Gross hematuria with darling in place - Patient has a history of acute urinary retention with status post Darling due to BPH - Scheduled for aqua ablation of prostate on 04/14/2024 - H&H stable - IV normal saline at 75 mL/hour - Consulted Urology # BPH with elevated PSA - Scheduled for aqua ablation of prostate on 04/14/2024 - Tamsulosin 0.4 mg daily - Consulted Urology # Acute complicated recurrent cystitis likely due to ESBL - Patient was diagnosed with ESBL UTI 1 week ago and continued IV ertapenem 1 g daily for 1 week - U/A is consistent with UTI - Ordered urine C/S - IV ertapenem 1 g daily # Hypertensive heart disease - Losartan 50 mg p.o. daily # PUD prophylaxis - Protonix 40 mg p.o. daily # DVT prophylaxis - Hold due to the possibility of the bleeding Goal of care discussed with the patient for more than 20 minutes full code Plan of treatment discussed with Dr. Rodriguez Plan discussed with: Patient, Other My Orders Orders - RUCHI MANLEY RESIDENT Procedure Category Date Status Time Admit ADMIT 04/12/24 Transmitted 21:19 Code Status CODE 04/12/24 Transmitted 21:19 Sodium Chloride 0.9% PHA 04/12/24 In Process 21:30 Oxygen Per Hour RT 04/12/24 Transmitted 21:19 Acetaminophen Tablet PHA 04/12/24 In Process (Tylenol Tablet) 21:30 Hydrocodone-Acet PHA 04/12/24 In Process 5/325mg Tab ([place] 21:30 Ondansetron Hcl PHA 04/12/24 In Process (Zofran) 21:30 Fall Risk Precautions JORGE 04/12/[address] 21:19 Complete Blood Count LAB 04/13/24 Verified 04:00 Comprehensive LAB 04/13/24 Verified Metabolic Panel 04:00 Clear Liq Diet DIET 04/13/24 Transmitted Breakfast Sequential JORGE 04/12/24 In Process Compression Device Nitroglycerin PHA 04/12/24 In Process Sublingual (Ntrostat 21:30 Morphine Sulfate PHA 04/12/24 In Process Injection 21:30 Oxygen By Nasal RT 04/12/24 Transmitted Cannula 21:19 Stat Ekg For Chest JORGE 04/12/24 In Process Pain 21:19 Notify Of Changes JORGE 04/12/24 In Process From Base 21:19 Log Scaler For JORGE 04/12/24 In Process 24 Hours 21:19 Emergency Dysrhythmia JORGE 04/12/24 In Process Protocol 21:19 Rhythm Strips Once JORGE 04/12/24 In Process Every Shift 21:19 Ertapenem Sod Inj PHA 04/12/24 In Process (Invanz) 21:45 Ertapenem Sod Inj PHA 04/13/24 In Process (Invanz) 21:00 PTPTT LAB 04/12/24 Logged 21:37 Hemoglobin A1c LAB 04/12/24 Logged 21:37 Thyroid Stimulating LAB 04/12/24 Logged Hormone 21:37 Vitamin B12 LAB 04/12/24 Logged 21:37 Vitamin D, 25-Hydroxy LAB 04/12/24 Logged 21:37 * Urology Consult CONS 04/12/24 Transmitted 21:37 Urine Bacterial NNACY 04/12/24 Uncollected Culture 21:37 Atorvastatin (Lipitor) PHA 04/13/24 Logged 10:00 Docusate Sodium PHA 04/12/24 Logged Capsule (Colace 22:00 Gabapentin Capsule PHA 04/12/24 Logged (Neurontin Capsule) 22:00 Hydrochlorothiazide PHA 04/13/24 Logged Tablet (Hydrochlorot 10:00 Losartan Tablet PHA 04/13/24 Logged (Cozaar Tablet) 10:00 Pantoprazole Tablet PHA 04/13/24 Logged (Protonix Tablet) 10:00 Tamsulosin PHA 04/13/24 Logged Hydrochloride (Flomax) 10:00 (Nf) Magnesium Oxide PHA 04/13/24 Transmitted 10:00 (Nf) Quetiapine PHA 04/13/24 Transmitted Fumerate (Seroquel) 10:00 Date of Service: Apr 12, 2024 Billing Provider: FANI RODRIGUEZ MD Common Visit Codes: [id number] INP/OBS CARE (HIGH) Secondary Visit Codes: [id number] CARE PLAN 30 MINUTES RUCHI MANLEY RESIDENT Apr 12, 2024 21:50 FANI RODRIGUEZ MD Apr 13, 2024 09:36
[2024-04-12 22:41] LABS: INR 1.08 (0.9-1.15); Partial Thromboplastin Time 32.8 SEC (24.5-34.5); Prothrombin Time 11.4 sec (9.3-11.8)
[2024-04-12] MEDS: ERTAPENEM SOD INJ 1 GM in SODIUM CHL 0.9% 50 ML IV ONE (22:50)
[2024-04-12] MEDS: DOCUSATE SOD 100 MG CAP PO SCH (22:57)
[2024-04-12] MEDS: GABAPENTIN 300 MG CAP PO SCH (22:58)
[2024-04-12 23:00] VITALS: PULSE 79; RESP 18; O2SAT 96
[2024-04-12 23:25] VITALS: BP 146/77; PULSE 78; RESP 16; TEMP 97.7; O2SAT 96
[2024-04-13] MEDS ORDERED: DEXTROSE (50%) 50ML SYRG IV PRN
[2024-04-13] MEDS: ERGOCALCIFEROL 50,000 UNIT(1.25MG) CAP PO SCH (05:21)
[2024-04-13] MEDS: GABAPENTIN 100 MG CAP PO SCH (05:29)
[2024-04-13] MEDS: ACCU-CHEK COMFORT CURVE STRIP VI SCH (05:50)
[2024-04-13] MEDS: InsuLIN REG 1unit/0.01ml Soln (100units/ml) SC SCH (05:50)
[2024-04-13 06:28] LABS: Basophils # (auto) 0 10 ^3/uL (0-0.2); Basophils % (auto) 0.7 % (0.0-2.0); Eosinophils # (auto) 0.4 10 ^3/uL (0-0.8); Eosinophils % (auto) 7.2 % (0.0-7.0); Hemoglobin 11.9 g/dL (13.5-17.5); Lymphocytes # (auto) 1.7 10 ^3/uL (0.4-5.4); Lymphocytes % (auto) 27.6 % (10.0-50.0); Mean Corpuscular Hemoglobin 30.3 pg (28.0-32.0); Mean Corpuscular Hgb Conc. 33.1 g/dL (32.0-36.0); Mean Corpuscular Volume 91.5 fL (80.0-100.0); Monocytes # (auto) 0.5 10 ^3/uL (0-1.3); Monocytes % (auto) 7.6 % (0.0-12.0); Neutrophils # (auto) 3.5 10 ^3/uL (1.6-8.6); Neutrophils % (auto) 56.9 % (37.0-80.0); Nucleated Red Blood Cells % 0.1 %; Platelet Count (auto) 315 10^3/uL (140-450); Red Blood Cells 3.94 10^6/uL (4.5-5.90); Red Cell Distribution Width 13.8 % (11.8-14.3); White Blood Cell 6.1 10^3/uL (4.4-10.8)
[2024-04-13 06:47] LABS: Alanine Aminotransferase 19 U/L (7-40); Albumin 3.6 g/dL (3.2-4.8); Alkaline Phosphatase 68 U/L (46-116); Anion Gap 6 (5-15); Aspartate Aminotransferase 22 U/L (13-40); BUN/Creatinine Ratio 11.1 (10.0-20.0); Bilirubin, Total 0.9 mg/dL (0.2-1.0); Blood Urea Nitrogen 8 mg/dL (9-23); Calcium 9.2 mg/dL (8.7-10.4); Carbon Dioxide 26 mmol/L (20-31); Chloride 108 mmol/L (98-107); Glucose 79 mg/dL (74-106); Potassium 3.8 mmol/L (3.5-5.1); Sodium 140 mmol/L (136-145); Total Protein 6.2 g/dL (5.7-8.2)
[2024-04-13 08:00] VITALS: PULSE 52
[2024-04-13 08:30] VITALS: BP 136/74; PULSE 69; RESP 17; TEMP 97.8; O2SAT 97
--- NOTE | 2024-04-13 09:04 | DVHINCON2 ---
Date of service: Apr 13, 2024 Referring Physician hospitalist Reason for Consultation Gross hematuria and urinary retention History of Present Illness History Source: Patient, Old Records HPI Patient has history of urinary retention secondary to BPH as well as elevated PSA. He did have a prior prostate needle biopsy which was negative for malignancy. He is prostate ultrasound indicated 115 g prostate. He has an indwelling Dial catheter. Home Meds Active Scripts Docusate Sodium (Colace) 100 Mg Cap, 1 CAP PO BID, #30 CAP Prov:KELSEY ROSE NP 03/26/24 Methocarbamol (Methocarbamol) 750 Mg Tab, 750 MG PO TID, #30 TAB Prov:JAMIL ARNETT MD 02/06/22 Hydromorphone Hcl (Dilaudid) 2 Mg Tab, 1 TAB PO TID PRN, #30 TAB Prov:JAMIL ARNETT MD 02/06/22 Gabapentin (Gabapentin) 300 Mg Cap, 1 CAP PO TID for 30 Days, #90 CAP 5 Refills Prov:YESSI LEON MD 01/05/22 Folic Oeef-Plfogfrsqd-Ayifyygb (Folbic) Tab, 1 TAB PO DAILY, #90 TAB 3 Refills Prov:YESSI LEON MD 01/05/22 Reported Medications Quetiapine Fumerate (Seroquel) 50 Mg Tab, 25 MG PO DAILY, TAB 03/24/24 Tamsulosin Hcl (Tamsulosin Hcl) 0.4 Mg Cap, 0.4 NG PO DAILY 03/24/24 Multiple Vitamin (Multivitamins) Cap, 1 CAP PO DAILY, CAP 12/04/20 Pantoprazole Sodium Sesquihydr (Protonix) 40 Mg Tab, 40 MG PO DAILY, #30 TAB 12/04/20 Magnesium Oxide (MAGNESIUM OXIDE) 400 Mg Tab, 400 MG PO DAILY, TAB 12/04/20 Hydrochlorothiazide (Hydrochlorothiazide) 25 Mg Tab, 25 MG PO DAILY, TAB 12/04/20 Atorvastatin Calcium (Lipitor) 20 Mg Tab, 20 MG PO DAILY, TAB 12/04/20 Losartan Potassium (Losartan Potassium) 50 Mg Tab, 50 MG PO DAILY, TAB 12/04/20 Past Medical History Patient Family History: Patient reports no known family medical history. Review of Systems Comments Constitutional: No: Fever, Chills, Sweats, Weakness, Malaise, Other Eyes: No: Pain, Vision change, Conjunctivae inflammation, Eyelid inflammation, Other, Redness ENT: No: Ear pain, Ear discharge, Nose pain, Nose discharge, Nose congestion, Mouth pain, Mouth swelling, Throat pain, Throat swelling, Other Respiratory: No: Cough, Dry, Shortness of breath, SOB with excertion, Wheezing, Hemoptysis, Pleuritic Pain, Sputum, Wheezing, Other Cardiovascular: No: Chest Pain, Palpitations, Orthopnea, Paroxysmal Noc. Dyspnea, Edema, Lt Headedness, Other Genitourinary: No Dysuria, No Frequency, No Incontinence; Hematuria, Retention; No Other Musculoskeletal: No: other, neck pain, shoulder pain, arm pain, back pain, hand pain, leg pain, foot pain Skin: No: Rash, Lesions, Jaundice, Bruising, Other Neurological: No: Weakness, Numbness, Incoordination, Change in speech, Confusion, Seizures, Other Allergies: Coded Allergies: NO KNOWN ALLERGIES (Unverified , 03/03/16) H&P Exam Vital Signs Vital Signs Date Time Temp Pulse Resp B/P (MAP) Pulse Ox O2 Delivery O2 Flow Rate FiO2 04/13/24 08:30 97.8 69 17 136/74 (94) 97 97.8 04/12/24 23:00 Room Air* 0 21 Comments General Appearance: Alert, Oriented X3, Cooperative, No acute distress HEENT: Atraumatic, PERRLA, EOMI, Mucous membrane moist/pink Respiratory: Clear to auscultation, Normal air movement Cardiovascular: Regular rate, Normal S1, Normal S2, No murmurs, no chest wall tenderness Abdominal: Normal bowel sounds, Soft, No tenderness, No hepatospenomegaly, No masses Extremities: No clubbing, No cyanosis, No edema, Normal pulses, No tenderness/swelling Skin: No rashes, No breakdown, No significant lesion Neuro: Normal speech, Strength at 5/5 X4 ext, Normal tone, Sensation intact, grossly intact cranial nerves Psych/Mental Status: Mental status NL, Mood NL Labs/Xrays Labs Test 04/13/24 05:31 04/13/24 05:20 04/12/24 21:55 04/12/24 18:57 Range/Units POC Glucose 88 70-106 mg/dl White Blood Count 6.1 # 4.4-10.8 10^3/uL Red Blood Count 3.94 L 4.5-5.90 10^6/uL Hemoglobin 11.9 L 13.5-17.5 g/dL Hematocrit 36.0 L 41.0-53.0 % Mean Corpuscular Volume 91.5 80.0-100.0 fL Mean Corpuscular Hemoglobin 30.3 28.0-32.0 pg Mean Corpuscular Hemoglobin Concent 33.1 32.0-36.0 g/dL Red Cell Distribution Width 13.8 11.8-14.3 % Platelet Count 315 140-450 10^3/uL Mean Platelet Volume 7.6 6.9-10.8 fL Neutrophils (%) (Auto) 56.9 37.0-80.0 % Lymphocytes (%) (Auto) 27.6 10.0-50.0 % Monocytes (%) (Auto) 7.6 0.0-12.0 % Eosinophils (%) (Auto) 7.2 H 0.0-7.0 % Basophils (%) (Auto) 0.7 0.0-2.0 % Neutrophils # (Auto) 3.5 1.6-8.6 10 ^3/uL Lymphocytes # (Auto) 1.7 0.4-5.4 10 ^3/uL Monocytes # (Auto) 0.5 0-1.3 10 ^3/uL Eosinophils # (Auto) 0.4 0-0.8 10 ^3/uL Basophils # (Auto) 0 0-0.2 10 ^3/uL Nucleated Red Blood Cells 0.1 % Sodium Level 140 # 136-145 mmol/L Potassium Level 3.8 3.5-5.1 mmol/L Chloride Level 108 H 98-107 mmol/L Carbon Dioxide Level 26 20-31 mmol/L Anion Gap 6 5-15 Blood Urea Nitrogen 8 L 9-23 mg/dL Creatinine 0.72 0.700-1.30 mg/dL Glomerular Filtration Rate Calc 91 >90 mL/min BUN/Creatinine Ratio 11.1 10.0-20.0 Serum Glucose 79 74-106 mg/dL Calcium Level 9.2 8.7-10.4 mg/dL Total Bilirubin 0.9 0.2-1.0 mg/dL Aspartate Amino Transferase (AST) 22 13-40 U/L Alanine Aminotransferase (ALT) 19 7-40 U/L Alkaline Phosphatase 68 46-116 U/L Total Protein 6.2 5.7-8.2 g/dL Albumin 3.6 3.2-4.8 g/dL Prothrombin Time 11.4 9.3-11.8 sec Prothrombin Time INR 1.08 0.9-1.15 Activated Partial Thromboplast Time 32.8 24.5-34.5 SEC Hemoglobin A1c 5.5 <5.7 % A1C Vitamin B12 Level 855 211-911 pg/mL Vitamin D 25-Hydroxy 30.1 30.0-100 ng/mL Thyroid Stimulating Hormone (TSH) 0.64 0.55-4.78 uIU/mL Urine Color Red H Yellow Urine Clarity Ex.turbid Clear Urine pH 6.0 5.0-9.0 Urine Specific [place] 1.018 1.001-1.035 Urine Protein 2+ H Negative Urine Ketones Negative Negative Urine Blood 3+ H Negative /uL Urine Nitrite Negative Negative Urine Bilirubin Negative Negative Urine Urobilinogen Normal Negative mg/dL Urine Leukocyte Esterase 2+ Negative /uL Urine RBC 3728 0 - 3 /hpf Urine WBC 880 0 - 3 /hpf Urine Squamous Epithelial Cells None seen <5 /hpf Urine Bacteria None seen None Seen /hpf Urine Mucus Few None Seen Urine Glucose Normal Normal mg/dL Assessment/Plan Problem List: (1) Urinary retention (2) Benign prostatic hyperplasia with lower urinary tract symptoms (3) Hematuria Plan Patient to undergo trans urethral resection of the prostate gland Plan discussed with: Patient, Other JAMISON SILVERIO NP Apr 13, 2024 09:04 ANGELA WINTERS MD Apr 15, 2024 12:07
[2024-04-13] MEDS: TAMSULOSIN HYDROCHLORIDE 0.4 MG CAP PO SCH (10:00)
[2024-04-13] MEDS: MAGNESIUM OXIDE 400 MG TAB PO SCH (10:31)
[2024-04-13] MEDS: PANTOPRAZOLE 40 MG TAB PO SCH (10:31)
[2024-04-13] MEDS: ATORVASTATIN 20 MG TAB PO SCH (10:31)
[2024-04-13] MEDS: LOSARTAN POTASSIUM 50 MG TAB PO SCH (10:32)
[2024-04-13] MEDS: QUEtiapine FUMARATE 25 MG TAB PO SCH (10:32)
[2024-04-13] MEDS: hydroCHLOROthiazide 25 MG TAB PO SCH (10:32)
[2024-04-13] MEDS: TAMSULOSIN HYDROCHLORIDE 0.4 MG CAP PO ONE (12:20)
[2024-04-13] MEDS: amLODIPine BESYLATE 5 MG TAB PO ONE (12:22)
[2024-04-13] MEDS: ACETAMINOPHEN 325 MG TAB PO PRN (12:28)
[2024-04-13 13:00] VITALS: BP 137/71; PULSE 69; RESP 17; TEMP 98.3; O2SAT 96
--- NOTE | 2024-04-13 13:22 | DVHPNRES ---
Progress Note Date Seen: Apr 13, 2024 Resident Creating Document: SANTA FERNANDEZ RESIDENT Medical Necessity Reason Pt with a Central, PICC or Fol: Yes The following are medically ne: Darling Catheter Reason for darling catheter: Bladder Retention/Obstruc Subjective Review of Systems Patient is a 84 year old male with past medical history of BPH s/p TRUS, urinary retention, peripheral neuropathy, scoliosis, who came in due to hematuria. Patient was recently discharged from the [facility] on 04/05/2024 to complete ertapenem course at home, however, patient says he was able to get home health but home health nurse did not have access to the antibiotic so he could not complete the antibiotic course. Patient went to follow up in the discharge clinic on 04/12/2024 when he was instructed to go to the hospital. Patient was also scheduled for a urology procedure on 04/12/2024 which according to patient's was rescheduled for 05/12/2024. UA showed 2+ leukocyte esterase and 880 WBCs. Past surgical history: Appendectomy, back surgery Home medications: Atorvastatin, gabapentin, hydrochlorothiazide, Dilaudid, losartan, magnesium oxide, methocarbamol, quetiapine, tamsulosin, Protonix Past Hospitalization: 1 week ago for similar symptoms Social & Personal history: Patient lives with his . Denies using tobacco, alcohol, drugs. Allergies: Denies Patient seen and examined at bedside. Patient is alert and oriented to time, place person and responding to all questions. Eyes: No Pain, No Vision change, No Conjunctivae inflammation, No Eyelid inflammation, No Other, No Redness ENT: No Ear pain, No Ear discharge, No Nose pain, No Nose discharge, No Nose congestion, No Mouth pain, No Mouth swelling, No Throat pain, No Throat swelling, No Other Cardiovascular: No Chest Pain, No Palpitations, No Orthopnea, No Paroxysmal No Dyspnea, No Edema, No Lt Headedness, No Other Respiratory: No Cough, No Dry, No Shortness of breath, No SOB with exertion, No Wheezing, No Hemoptysis, No Pleuritic Pain, No Sputum, No Other Gastrointestinal: No Nausea, No Vomiting, No Abdominal Pain, No Diarrhea, No Constipation, No Melena, No Hematochezia, No Other Genitourinary: No Dysuria, No Frequency, No Incontinence, No Hematuria, No Retention, No Other Musculoskeletal: No other, No neck pain, No shoulder pain, No arm pain, No back pain, No hand pain, No leg pain, No foot pain Skin: No Rash, No Lesions, No Jaundice, No Bruising, No Other Objective vital signs Vital Sign Date Time Temp Pulse Resp B/P (MAP) Pulse Ox O2 Delivery O2 Flow Rate FiO2 04/13/24 12:22 137/71 04/13/24 08:30 97.8 69 17 97 97.8 04/12/24 23:00 Room Air* 0 21 Total Intake and Output 04/12/24 04/12/24 04/13/24 15:00 23:00 07:00 Intake Total 125 ml 50 ml Output Total 1000 ml Balance 125 ml -950 ml medications Current Medications Medications Dose Ordered Sig/Zohreh Route Start Time Stop Time Status Last Admin Dose Admin Sodium Chloride 1,000 ml @ 75 mls/hr [id number] IV 04/12/24 21:30 04/13/24 10:53 75 MLS/HR Acetaminophen 325 mg Q4HP PRN PO 04/12/24 21:30 04/13/24 12:28 325 MG Acetaminophen/ Hydrocodone Bitart 1 tab Q4HP PRN PO 04/12/24 21:30 04/12/24 21:43 1 TAB Ondansetron HCl 4 mg Q4HP PRN IV 04/12/24 21:30 Nitroglycerin 0.4 mg Q5MINP PRN SL 04/12/24 21:30 Morphine Sulfate 2 mg Q30M PRN IV 04/12/24 21:30 Ertapenem 1 gm/ Sodium Chloride 50 ml @ 100 mls/hr DAILY@2100 IV 04/13/24 21:00 Atorvastatin Calcium 20 mg DAILY PO 04/13/24 10:00 04/13/24 10:31 20 MG Docusate Sodium 100 mg BID PO 04/12/24 22:00 04/13/24 10:32 100 MG Losartan Potassium 50 mg DAILY PO 04/13/24 10:00 04/13/24 10:32 50 MG Pantoprazole Sodium 40 mg DAILY PO 04/13/24 10:00 04/13/24 10:31 40 MG Magnesium Oxide 400 mg DAILY PO 04/13/24 10:00 04/13/24 10:31 400 MG Quetiapine Fumarate 25 mg DAILY PO 04/13/24 10:00 11/5/24 10:32 25 MG Ergocalciferol 50,000 unit Q7D PO 04/13/24 00:00 04/13/24 05:21 50,000 UNIT Diagnostic Test (Pha) 1 strip ACHS 04/13/24 07:00 04/13/24 12:25 1 STRIP Insulin Human Regular ACHS SC 04/13/24 07:00 Dextrose 50 ml UD PRN IV 04/13/24 00:00 Gabapentin 300 mg TID PO 04/13/24 14:00 Amlodipine Besylate 5 mg DAILY PO 04/14/24 10:00 Tamsulosin HCl 0.4 mg DAILY PO 04/14/24 10:00 Examination General Appearance: Cooperative. Well developed. Well nourished. NAD. Darling catheter in place, draining reddish urine Head Exam: Normal inspection Neck Exam: Normal inspection. Non-tender. Normal alignment Pulmonary/Respiratory: Chest non-tender. Clear bilateral breath sounds, no crackles, no wheezing. Cardiovascular/Chest: Regular rate and rhythm. No murmurs. No JVD. Peripheral Pulses: 2+ Radial (R). 2+ Radial (L). 2+ Pedal (R). 2+ Pedal (L) Abdominal Exam: Normal bowel sounds. Soft. normal abdomen, no visible veins, Nontender. No hepatospenomegaly. No masses Ankle Exam: Negative ankle edema Upper extremities: Mild tremor noted in the left upper extremity Lower extremities: Negative lower extremity edema Neuro/Mental Status: A&O x4. Coherent. Thoughts/Psych: Normal thought pattern. Appropriate mood and affect. Good judgement and insight Skin Exam: Normal inspection. Normal color. Warm. Dry laboratory and microbiology Laboratory Tests 04/13/24 05:20 Test 04/13/24 05:20 Range/Units Serum Glucose 79 74-106 mg/dL Labs and/or images reviewed: Labs reviewed by me, Image(s) reviewed by me Problem List/Assessment/Plan Problem List/Assessment/Plan Acute complicated UTI, ESBL E coli - IV NS at 75 cc/hour - IV ertapenem 1 g daily Benign prostatic hyperplasia s/p TRUS Acute urinary retention likely due to above Hematuria with stable hemoglobin - tamsulosin 0.4 mg - urology consulted - we will continue to monitor H and H Type 2 diabetes, Hb A1c 5.5 - mild sliding scale insulin - losartan 50 mg Peripheral Neuropathy Chronic pain - acetaminophen 325 mg q.4 as needed for mild pain - gabapentin 300 mg t.i.d. Hypertension Dyslipidemia - aspirin 81 mg, atorvastatin 20 mg - discontinued hydrochlorothiazide - amlodipine 5 mg PUD prophylaxis: protonix 40mg DVT prophylaxis: SCD Goals of care: Full code, discussed for >16 minutes on 04/13/24 Plan discussed with patient Plan discussed with Dr. Hobbs Plan discussed with: Patient, Spouse, Daughter, Other (RN) My Orders My Orders Orders - SANTA FERNANDEZ RESIDENT Procedure Category Date Status Time Bladder Scan ORDERS 04/13/24 Transmitted 11:09 Gabapentin Capsule PHA 04/13/24 In Process (Neurontin Capsule) 14:00 Amlodipine Tablet PHA 04/14/24 In Process (Norvasc Tablet) 10:00 Tamsulosin PHA 04/14/24 In Process Hydrochloride (Flomax) 10:00 Date of Service: Apr 13, 2024 Billing Provider: KARTIK HOBBS MD Common Visit Codes: [id number] INP/OBS CARE(HIGH) Coding Comment Comment I saw and evaluated the patient. I reviewed the residents note and agree with findings and plan as documented in the residents note. SANTA FERNANDEZ Apr 13, 2024 13:22 KARTIK HOBBS MD Apr 13, 2024 20:45
[2024-04-13] MEDS: GABAPENTIN 300 MG CAP PO SCH (14:52)
[2024-04-13] MEDS ORDERED: SENNA 8.6 MG TAB PO PRN (15:45)
[2024-04-13] MEDS: POLYETHYLENE GLYCOL 17 GM PWDR PO ONE (16:20)
[2024-04-13 16:30] VITALS: BP 132/70; PULSE 66; RESP 17; TEMP 98.5; O2SAT 98
[2024-04-13 20:00] VITALS: PULSE 59; PULSE 72; RESP 17; O2SAT 94
[2024-04-13] MEDS: ERTAPENEM SOD INJ 1 GM in SODIUM CHL 0.9% 50 ML IV SCH (20:29)
[2024-04-13 21:00] VITALS: BP 105/45; PULSE 73; RESP 18; TEMP 97.8; O2SAT 94
[2024-04-14] VITALS (8 sets, daily range): BP systolic 99–135; BP diastolic 53–74; PULSE 53–128; RESP 16–19; TEMP 97.4–98; O2SAT 94–96
[2024-04-14 07:32] LABS: Basophils # (auto) 0.1 10 ^3/uL (0-0.2); Basophils % (auto) 0.9 % (0.0-2.0); Eosinophils # (auto) 0.4 10 ^3/uL (0-0.8); Eosinophils % (auto) 6.4 % (0.0-7.0); Hematocrit 35.8 % (41.0-53.0); Lymphocytes # (auto) 1.2 10 ^3/uL (0.4-5.4); Lymphocytes % (auto) 17.8 % (10.0-50.0); Mean Corpuscular Hemoglobin 30.8 pg (28.0-32.0); Mean Corpuscular Hgb Conc. 33.5 g/dL (32.0-36.0); Mean Corpuscular Volume 92.1 fL (80.0-100.0); Monocytes # (auto) 0.4 10 ^3/uL (0-1.3); Monocytes % (auto) 6.5 % (0.0-12.0); Neutrophils # (auto) 4.5 10 ^3/uL (1.6-8.6); Neutrophils % (auto) 68.4 % (37.0-80.0); Platelet Count (auto) 282 10^3/uL (140-450); Red Blood Cells 3.89 10^6/uL (4.5-5.90); Red Cell Distribution Width 14.2 % (11.8-14.3); White Blood Cell 6.6 10^3/uL (4.4-10.8)
[2024-04-14] MEDS: TAMSULOSIN HYDROCHLORIDE 0.4 MG CAP PO SCH (10:43)
[2024-04-14] MEDS: amLODIPine BESYLATE 5 MG TAB PO SCH (10:44)
[2024-04-14] MEDS: SENNA 8.6 MG TAB PO ONE (14:47)
[2024-04-14] MEDS: ACETAMINOPHEN 325 MG TAB PO SCH (14:48)
--- NOTE | 2024-04-14 16:42 | DVHPNRES ---
Progress Note Date Seen: Apr 14, 2024 Resident Creating Document: [place] RESIDENT Medical Necessity Reason Pt with a Central, PICC or Fol: Yes The following are medically ne: Darling Catheter Reason for darling catheter: Bladder Retention/Obstruc Subjective Review of Systems Patient is a 84 year old male with past medical history of BPH s/p TRUS, urinary retention, peripheral neuropathy, scoliosis, who came in due to hematuria. Patient was recently discharged from the [facility] on 04/05/2024 to complete ertapenem course at home, however, patient says he was able to get home health but home health nurse did not have access to the antibiotic so he could not complete the antibiotic course. Patient went to follow up in the discharge clinic on 04/12/2024 when he was instructed to go to the hospital. Patient was also scheduled for a urology procedure on 04/12/2024 which according to patient's was rescheduled for 05/12/2024. UA showed 2+ leukocyte esterase and 880 WBCs. Past surgical history: Appendectomy, back surgery Home medications: Atorvastatin, gabapentin, hydrochlorothiazide, Dilaudid, losartan, magnesium oxide, methocarbamol, quetiapine, tamsulosin, Protonix Past Hospitalization: 1 week ago for similar symptoms Social & Personal history: Patient lives with his . Denies using tobacco, alcohol, drugs. Allergies: Denies Patient seen and examined at bedside. Patient is alert and oriented to time, place person and responding to all questions. Patient reports increasing somnolence and fatigue, spoke with patients at bedside as well with the help of a transitions rn care coordinator. Objective vital signs Vital Sign Date Time Temp Pulse Resp B/P (MAP) Pulse Ox O2 Delivery O2 Flow Rate FiO2 04/14/24 11:44 97.8 64 19 112/65 (81) 96 97.8 04/14/24 08:00 Room Air* 0 21 Total Intake and Output 04/13/24 04/13/24 04/14/24 15:00 23:00 07:00 Intake Total 0 ml 450 ml Output Total 900 ml 1600 ml Balance -900 ml -1150 ml medications Current Medications Medications Dose Ordered Sig/Zohreh Route Start Time Stop Time Status Last Admin Dose Admin Sodium Chloride 1,000 ml @ 75 mls/hr [id number] IV 04/12/24 21:30 04/14/24 00:10 75 MLS/HR Acetaminophen 325 mg Q4HP PRN PO 04/12/24 21:30 04/13/24 12:28 325 MG Ondansetron HCl 4 mg Q4HP PRN IV 04/12/24 21:30 Nitroglycerin 0.4 mg Q5MINP PRN SL 04/12/24 21:30 Morphine Sulfate 2 mg Q30M PRN IV 04/12/24 21:30 Ertapenem 1 gm/ Sodium Chloride 50 ml @ 100 mls/hr DAILY@2100 IV 04/13/24 21:00 04/13/24 20:29 100 MLS/HR Atorvastatin Calcium 20 mg DAILY PO 04/13/24 10:00 04/14/24 10:43 20 MG Docusate Sodium 100 mg BID PO 04/12/24 22:00 04/14/24 10:43 100 MG Losartan Potassium 50 mg DAILY PO 04/13/24 10:00 04/14/24 10:45 50 MG Pantoprazole Sodium 40 mg DAILY PO 04/13/24 10:00 04/14/24 10:44 40 MG Magnesium Oxide 400 mg DAILY PO 04/13/24 10:00 04/14/24 10:44 400 MG Quetiapine Fumarate 25 mg DAILY PO 04/13/24 10:00 04/14/24 10:43 25 MG Ergocalciferol 50,000 unit Q7D PO 04/13/24 00:00 04/13/24 05:21 50,000 UNIT Gabapentin 300 mg TID PO 04/13/24 14:00 04/14/24 14:48 300 MG Amlodipine Besylate 5 mg DAILY PO 04/14/24 10:00 04/14/24 10:44 5 MG Tamsulosin HCl 0.4 mg DAILY PO 04/14/24 10:00 04/14/24 10:43 0.4 MG Acetaminophen 650 mg Q8HR PO 04/14/24 14:00 04/14/24 14:48 650 MG Examination General Appearance: Cooperative. Well developed. Well nourished. NAD. Darling catheter in place, draining reddish urine Head Exam: Normal inspection Neck Exam: Normal inspection. Non-tender. Normal alignment Pulmonary/Respiratory: Chest non-tender. Clear bilateral breath sounds, no crackles, no wheezing. Cardiovascular/Chest: Regular rate and rhythm. No murmurs. No JVD. Peripheral Pulses: 2+ Radial (R). 2+ Radial (L). 2+ Pedal (R). 2+ Pedal (L) Abdominal Exam: Normal bowel sounds. Soft. normal abdomen, no visible veins, Nontender. No hepatospenomegaly. No masses Ankle Exam: Negative ankle edema Upper extremities: Mild tremor noted in the left upper extremity Lower extremities: Negative lower extremity edema Neuro/Mental Status: A&O x4. Coherent. Thoughts/Psych: Normal thought pattern. Appropriate mood and affect. Good judgement and insight Skin Exam: Normal inspection. Normal color. Warm. Dry laboratory and microbiology Laboratory Tests 04/14/24 06:44 04/13/24 05:20 Test 04/13/24 05:20 Range/Units Serum Glucose 79 74-106 mg/dL Microbiology Date/Time Source Procedure Growth Status 04/13/24 06:10 Voided Urine Urine Culture - Preliminary Resulted 04/12/24 23:50 Nose MRSA Screen - Final Complete Problem List/Assessment/Plan Problem List/Assessment/Plan Acute complicated UTI, ESBL E coli - IV NS at 75 cc/hour - IV ertapenem 1 g daily Benign prostatic hyperplasia s/p TRUS Acute urinary retention likely due to above Hematuria with stable hemoglobin - tamsulosin 0.4 mg - urology consulted - we will continue to monitor H and H - patient likely scheduled for TURP tomorrow on 04/15/2024 Type 2 diabetes, Hb A1c 5.5 - mild sliding scale insulin - losartan 50 mg Peripheral Neuropathy Chronic pain - discontinued acetaminophen 325 mg q.4 as needed for mild pain - acetaminophen 650 mg p.o. Q 8 hours - gabapentin 300 mg t.i.d. Hypertension Dyslipidemia - aspirin 81 mg, atorvastatin 20 mg - discontinued hydrochlorothiazide - amlodipine 5 mg Slow transit constipation - MiraLax 17 g 1 packet - senna 17.2 mg p.o. once PUD prophylaxis: protonix 40mg DVT prophylaxis: SCD Goals of care: Full code, discussed for >16 minutes on 04/13/24 Plan discussed with patient Plan discussed with Dr. Hobbs Plan discussed with: Patient, Daughter, Other (RN) My Orders My Orders Orders - [facility] [facility] Procedure Category Date Status Time Communication Order ORDERS 04/13/24 Transmitted 19:03 Acetaminophen Tablet PHA 11/6/24 In Process (Tylenol Tablet) 14:00 [place] RESIDENT Apr 14, 2024 16:42
--- NOTE | 2024-04-14 21:19 | CODING ---
Date of Service: Apr 14, 2024 Billing Provider: KARTIK WALL MD Common Visit Codes: [id number] INP/OBS CARE(HIGH) KARTIK WALL MD Apr 14, 2024 21:19
[2024-04-15] VITALS (9 sets, daily range): BP systolic 108–134; BP diastolic 55–80; PULSE 52–108; RESP 12–20; TEMP 97.5–98.2; O2SAT 91–97
[2024-04-15 05:54] LABS: Basophils # (auto) 0 10 ^3/uL (0-0.2); Basophils % (auto) 0.8 % (0.0-2.0); Eosinophils # (auto) 0.5 10 ^3/uL (0-0.8); Eosinophils % (auto) 8.3 % (0.0-7.0); Hematocrit 35.2 % (41.0-53.0); Hemoglobin 11.7 g/dL (13.5-17.5); Lymphocytes # (auto) 1.4 10 ^3/uL (0.4-5.4); Lymphocytes % (auto) 22.5 % (10.0-50.0); Mean Corpuscular Hemoglobin 30.5 pg (28.0-32.0); Mean Corpuscular Hgb Conc. 33.4 g/dL (32.0-36.0); Mean Corpuscular Volume 91.5 fL (80.0-100.0); Monocytes # (auto) 0.4 10 ^3/uL (0-1.3); Monocytes % (auto) 6.7 % (0.0-12.0); Neutrophils # (auto) 3.9 10 ^3/uL (1.6-8.6); Neutrophils % (auto) 61.7 % (37.0-80.0); Platelet Count (auto) 298 10^3/uL (140-450); Red Blood Cells 3.84 10^6/uL (4.5-5.90); Red Cell Distribution Width 13.8 % (11.8-14.3); White Blood Cell 6.3 10^3/uL (4.4-10.8)
[2024-04-15 06:01] LABS: Anion Gap 3 (5-15); Carbon Dioxide 30 mmol/L (20-31); Chloride 108 mmol/L (98-107); Potassium 4.1 mmol/L (3.5-5.1); Sodium 141 mmol/L (136-145)
[2024-04-15 06:02] LABS: Calcium 9.5 mg/dL (8.7-10.4)
[2024-04-15 06:07] LABS: Blood Urea Nitrogen 6 mg/dL (9-23); Glucose 84 mg/dL (74-106)
--- NOTE | 2024-04-15 08:45 | DVHPNRES ---
Progress Note Date Seen: Apr 15, 2024 Resident Creating Document: [place] RESIDENT Medical Necessity Reason Pt with a Central, PICC or Fol: Yes The following are medically ne: Darling Catheter Reason for darling catheter: Bladder Retention/Obstruc Subjective Review of Systems Patient is a 84 year old male with past medical history of BPH s/p TRUS, urinary retention, peripheral neuropathy, scoliosis, who came in due to hematuria. Patient was recently discharged from the [facility] on 04/05/2024 to complete ertapenem course at home, however, patient says he was able to get home health but home health nurse did not have access to the antibiotic so he could not complete the antibiotic course. Patient went to follow up in the discharge clinic on 04/12/2024 when he was instructed to go to the hospital. Patient was also scheduled for a urology procedure on 04/12/2024 which according to patient's was rescheduled for 05/12/2024. UA showed 2+ leukocyte esterase and 880 WBCs. Past surgical history: Appendectomy, back surgery Home medications: Atorvastatin, gabapentin, hydrochlorothiazide, Dilaudid, losartan, magnesium oxide, methocarbamol, quetiapine, tamsulosin, Protonix Past Hospitalization: 1 week ago for similar symptoms Social & Personal history: Patient lives with his . Denies using tobacco, alcohol, drugs. Allergies: Denies Patient seen and examined at bedside. Patient is alert and oriented to time, place person and responding to all questions. Patient reports increasing somnolence and fatigue, spoke with patients at bedside as well with the help of a dock guard. Objective vital signs Vital Sign Date Time Temp Pulse Resp B/P (MAP) Pulse Ox O2 Delivery O2 Flow Rate FiO2 04/15/24 05:00 97.5 62 18 132/55 (80) 96 97.5 04/14/24 20:00 Room Air* 0 21 Total Intake and Output 04/14/24 04/14/24 04/15/24 15:00 23:00 07:00 Intake Total 800 ml 620 ml Output Total 1650 ml 850 ml Balance -850 ml -230 ml medications Current Medications Medications Dose Ordered Sig/Zohreh Route Start Time Stop Time Status Last Admin Dose Admin Sodium Chloride 1,000 ml @ 75 mls/hr [id number] IV 04/12/24 21:30 04/15/24 04:51 75 MLS/HR Acetaminophen 325 mg Q4HP PRN PO 04/12/24 21:30 04/13/24 12:28 325 MG Ondansetron HCl 4 mg Q4HP PRN IV 04/12/24 21:30 Nitroglycerin 0.4 mg Q5MINP PRN SL 04/12/24 21:30 Morphine Sulfate 2 mg Q30M PRN IV 04/12/24 21:30 Ertapenem 1 gm/ Sodium Chloride 50 ml @ 100 mls/hr DAILY@2100 IV 04/13/24 21:00 04/14/24 23:14 100 MLS/HR Atorvastatin Calcium 20 mg DAILY PO 04/13/24 10:00 04/14/24 10:43 20 MG Docusate Sodium 100 mg BID PO 04/12/24 22:00 04/14/24 23:16 100 MG Losartan Potassium 50 mg DAILY PO 04/13/24 10:00 04/14/24 10:45 50 MG Pantoprazole Sodium 40 mg DAILY PO 04/13/24 10:00 04/14/24 10:44 40 MG Magnesium Oxide 400 mg DAILY PO 04/13/24 10:00 04/14/24 10:44 400 MG Quetiapine Fumarate 25 mg DAILY PO 04/13/24 10:00 04/14/24 10:43 25 MG Ergocalciferol 50,000 unit Q7D PO 04/13/24 00:00 04/13/24 05:21 50,000 UNIT Gabapentin 300 mg TID PO 04/13/24 14:00 04/15/24 05:44 300 MG Amlodipine Besylate 5 mg DAILY PO 04/14/24 10:00 04/14/24 10:44 5 MG Tamsulosin HCl 0.4 mg DAILY PO 04/14/24 10:00 04/14/24 10:43 0.4 MG Acetaminophen 650 mg Q8HR PO 04/14/24 14:00 04/15/24 05:44 650 MG Examination General Appearance: Cooperative. Well developed. Well nourished. NAD. Darling catheter in place, draining reddish urine Head Exam: Normal inspection Neck Exam: Normal inspection. Non-tender. Normal alignment Pulmonary/Respiratory: Chest non-tender. Clear bilateral breath sounds, no crackles, no wheezing. Cardiovascular/Chest: Regular rate and rhythm. No murmurs. No JVD. Peripheral Pulses: 2+ Radial (R). 2+ Radial (L). 2+ Pedal (R). 2+ Pedal (L) Abdominal Exam: Normal bowel sounds. Soft. normal abdomen, no visible veins, Nontender. No hepatospenomegaly. No masses Ankle Exam: Negative ankle edema Upper extremities: Mild tremor noted in the left upper extremity Lower extremities: Negative lower extremity edema Neuro/Mental Status: A&O x4. Coherent. Thoughts/Psych: Normal thought pattern. Appropriate mood and affect. Good judgement and insight Skin Exam: Normal inspection. Normal color. Warm. Dry laboratory and microbiology Laboratory Tests 04/15/24 04:50 Test 04/15/24 04:50 Range/Units Serum Glucose 84 74-106 mg/dL Microbiology Date/Time Source Procedure Growth Status 04/13/24 06:10 Voided Urine Urine Culture - Preliminary Resulted 04/12/24 23:50 Nose MRSA Screen - Final Complete Labs and/or images reviewed: Labs reviewed by me, Image(s) reviewed by me Problem List/Assessment/Plan Problem List/Assessment/Plan Acute complicated UTI, ESBL E coli - IV NS at 75 cc/hour - IV ertapenem 1 g daily Benign prostatic hyperplasia s/p TRUS Acute urinary retention likely due to above Hematuria with stable hemoglobin - tamsulosin 0.4 mg - urology consulted - we will continue to monitor H and H - patient likely scheduled for TURP tomorrow on 04/15/2024 Type 2 diabetes, Hb A1c 5.5 - mild sliding scale insulin - losartan 50 mg Peripheral Neuropathy Chronic pain - discontinued acetaminophen 325 mg q.4 as needed for mild pain - acetaminophen 650 mg p.o. Q 8 hours - gabapentin 300 mg t.i.d. Hypertension Dyslipidemia - aspirin 81 mg, atorvastatin 20 mg - discontinued hydrochlorothiazide - amlodipine 5 mg Slow transit constipation - MiraLax 17 g 1 packet - senna 17.2 mg p.o. once PUD prophylaxis: protonix 40mg DVT prophylaxis: SCD Goals of care: Full code, discussed for >16 minutes on 04/13/24 Plan discussed with patient Plan discussed with Dr. Hobbs Plan discussed with: Patient, Other (RN) My Orders My Orders Orders - [facility] [facility] Procedure Category Date Status Time Acetaminophen Tablet PHA 04/14/24 In Process (Tylenol Tablet) 14:00 Date of Service: Apr 15, 2024 Billing Provider: KARTIK HOBBS MD Common Visit Codes: [id number] INP/OBS CARE(HIGH) [place]ERNANDEZ RESIDENT Apr 15, 2024 08:45 KARTIK HOBBS MD Apr 15, 2024 20:32
--- NOTE | 2024-04-15 13:24 | POSTOP ---
Post-Operative Note Post-Operative Note Preop Diagnosis Urinary retention BPH Hematuria Postop Diagnosis: Same Operation performed Trans urethral resection of the prostate gland Specimen Prostate tissue Anesthesia: General Anesthesiologist: Hal Gallardo CRNA Blood Loss(fluid mgmt) Minimum Surgeon Angela Winters Date 04/15/24 Time 13:23 ANGELA WINTERS MD Apr 15, 2024 13:24
[2024-04-15] MEDS: GABAPENTIN 300 MG CAP PO SCH (18:20)
[2024-04-16 01:00] VITALS: BP 116/61; PULSE 93; RESP 18; TEMP 98; O2SAT 96
[2024-04-16 05:06] VITALS: BP 105/66; PULSE 73; RESP 18; TEMP 98; O2SAT 95
[2024-04-16 06:56] LABS: Basophils # (auto) 0 10 ^3/uL (0-0.2); Eosinophils # (auto) 0 10 ^3/uL (0-0.8); Hematocrit 38.6 % (41.0-53.0); Hemoglobin 12.9 g/dL (13.5-17.5); Lymphocytes # (auto) 0.6 10 ^3/uL (0.4-5.4); Lymphocytes % (auto) 10.8 % (10.0-50.0); Mean Corpuscular Hemoglobin 30.5 pg (28.0-32.0); Mean Corpuscular Hgb Conc. 33.4 g/dL (32.0-36.0); Mean Corpuscular Volume 91.3 fL (80.0-100.0); Monocytes # (auto) 0.2 10 ^3/uL (0-1.3); Monocytes % (auto) 3.4 % (0.0-12.0); Neutrophils # (auto) 4.8 10 ^3/uL (1.6-8.6); Neutrophils % (auto) 85.8 % (37.0-80.0); Nucleated Red Blood Cells % 0.1 %; Platelet Count (auto) 319 10^3/uL (140-450); Red Blood Cells 4.22 10^6/uL (4.5-5.90); White Blood Cell 5.5 10^3/uL (4.4-10.8)
[2024-04-16 08:00] VITALS: PULSE 68
[2024-04-16 08:38] VITALS: BP 124/63; PULSE 75; RESP 19; TEMP 98.3; O2SAT 95
[2024-04-16 13:00] VITALS: BP 110/64; PULSE 73; RESP 14; TEMP 98; O2SAT 96
[2024-04-16 17:11] VITALS: BP 111/61; PULSE 77; RESP 16; TEMP 97.7; O2SAT 94
--- NOTE | 2024-04-16 18:13 | DVHDSRES ---
Discharge Summary Date of Admission Resident Creating Document: [place]ERNANDEZ RESIDENT Apr 12, 2024 at 21:19 Date of Discharge: Apr 16, 2024 Labs/Diagnostic Data: Laboratory Results Test 04/16/24 05:43 04/15/24 04:50 04/13/24 16:15 04/13/24 05:20 White Blood Count 5.5 10^3/uL (4.4-10.8) Red Blood Count 4.22 10^6/uL (4.5-5.90) Hemoglobin 12.9 g/dL (13.5-17.5) Hematocrit 38.6 % (41.0-53.0) Mean Corpuscular Volume 91.3 fL (80.0-100.0) Mean Corpuscular Hemoglobin 30.5 pg (28.0-32.0) Mean Corpuscular Hemoglobin Concent 33.4 g/dL (32.0-36.0) Red Cell Distribution Width 14.0 % (11.8-14.3) Platelet Count 319 10^3/uL (140-450) Mean Platelet Volume 7.8 fL (6.9-10.8) Neutrophils (%) (Auto) 85.8 % (37.0-80.0) Lymphocytes (%) (Auto) 10.8 % (10.0-50.0) Monocytes (%) (Auto) 3.4 % (0.0-12.0) Eosinophils (%) (Auto) 0.0 % (0.0-7.0) Basophils (%) (Auto) 0.0 % (0.0-2.0) Neutrophils # (Auto) 4.8 10 ^3/uL (1.6-8.6) Lymphocytes # (Auto) 0.6 10 ^3/uL (0.4-5.4) Monocytes # (Auto) 0.2 10 ^3/uL (0-1.3) Eosinophils # (Auto) 0 10 ^3/uL (0-0.8) Basophils # (Auto) 0 10 ^3/uL (0-0.2) Nucleated Red Blood Cells 0.1 % Sodium Level 141 mmol/L (136-145) Potassium Level 4.1 mmol/L (3.5-5.1) Chloride Level 108 mmol/L (98-107) Carbon Dioxide Level 30 mmol/L (20-31) Anion Gap 3 (5-15) Blood Urea Nitrogen 6 mg/dL (9-23) Creatinine 0.75 mg/dL (0.700-1.30) Glomerular Filtration Rate Calc 90 mL/min (>90) BUN/Creatinine Ratio 8.0 (10.0-20.0) Serum Glucose 84 mg/dL (74-106) Calcium Level 9.5 mg/dL (8.7-10.4) POC Glucose 110 mg/dl (70-106) Total Bilirubin 0.9 mg/dL (0.2-1.0) Aspartate Amino Transferase (AST) 22 U/L (13-40) Alanine Aminotransferase (ALT) 19 U/L (7-40) Alkaline Phosphatase 68 U/L (46-116) Total Protein 6.2 g/dL (5.7-8.2) Albumin 3.6 g/dL (3.2-4.8) Test 04/12/24 21:55 04/12/24 18:57 Prothrombin Time 11.4 sec (9.3-11.8) Prothrombin Time INR 1.08 (0.9-1.15) Activated Partial Thromboplast Time 32.8 SEC (24.5-34.5) Hemoglobin A1c 5.5 % A1C (<5.7) Vitamin B12 Level 855 pg/mL (211-911) Vitamin D 25-Hydroxy 30.1 ng/mL (30.0-100) Thyroid Stimulating Hormone (TSH) 0.64 uIU/mL (0.55-4.78) Urine Color Red (Yellow) Urine Clarity Ex.turbid (Clear) Urine pH 6.0 (5.0-9.0) Urine Specific [place] 1.018 (1.001-1.035) Urine Protein 2+ (Negative) Urine Ketones Negative (Negative) Urine Blood 3+ /uL (Negative) Urine Nitrite Negative (Negative) Urine Bilirubin Negative (Negative) Urine Urobilinogen Normal mg/dL (Negative) Urine Leukocyte Esterase 2+ /uL (Negative) Urine RBC 3728 /hpf (0 - 3) Urine WBC 880 /hpf (0 - 3) Urine Squamous Epithelial Cells None seen /hpf (<5) Urine Bacteria None seen /hpf (None Seen) Urine Mucus Few (None Seen) Urine Glucose Normal mg/dL (Normal) Other Laboratory Tests 04/16/24 05:43 04/15/24 04:50 Brief Hx & Hospital Course: Patient is a 84 year old male with past medical history of BPH s/p TRUS, urinary retention, peripheral neuropathy, scoliosis, who came in due to hematuria. Patient was recently discharged from the [facility] on 04/05/2024 to complete ertapenem course at home, however, patient says he was able to get home health but home health nurse did not have access to the antibiotic so he could not complete the antibiotic course. Patient went to follow up in the discharge clinic on 04/12/2024 when he was instructed to go to the hospital. Patient was also scheduled for a urology procedure on 04/12/2024 which according to patient's was rescheduled for 05/12/2024. UA showed 2+ leukocyte esterase and 880 WBCs. Hospital course: Patient was started on IV NS at 75cc/hr started on IV ertapenem 1 g daily. Patient was also continued on tamsulosin 0.4 mg and urology was consulted. Patient underwent TURP on 04/15/2024. Continuous bladder irrigation was continued for the patient for 24 hours until it started draining pinkish clear urine. On the day of discharge, patient appeared well and had stable vital signs. Patient was sent home with Dial catheter in place and instructed to follow up with Urology in the outpatient clinic in 1 week. His hospital course was uncomplicated. Patient was discharged to SNF for IV antibiotics for another 6 days. General Appearance: Cooperative. Well developed. Well nourished. NAD. Dial catheter in place, draining reddish urine Head Exam: Normal inspection Neck Exam: Normal inspection. Non-tender. Normal alignment Pulmonary/Respiratory: Chest non-tender. Clear bilateral breath sounds, no crackles, no wheezing. Cardiovascular/Chest: Regular rate and rhythm. No murmurs. No JVD. Peripheral Pulses: 2+ Radial (R). 2+ Radial (L). 2+ Pedal (R). 2+ Pedal (L) Abdominal Exam: Normal bowel sounds. Soft. normal abdomen, no visible veins, Nontender. No hepatospenomegaly. No masses Ankle Exam: Negative ankle edema Upper extremities: Mild tremor noted in the left upper extremity Lower extremities: Negative lower extremity edema Neuro/Mental Status: A&O x4. Coherent. Thoughts/Psych: Normal thought pattern. Appropriate mood and affect. Good judgement and insight Skin Exam: Normal inspection. Normal color. Warm. Dry Condition at Discharge: Good Final Diagnosis/Problems List Acute complicated UTI, ESBL E coli Benign prostatic hyperplasia s/p TRUS Acute urinary retention likely due to above Hematuria with stable hemoglobin Type 2 diabetes, Hb A1c 5.5 Peripheral Neuropathy Chronic pain Hypertension Dyslipidemia Slow transit constipation [facility]position[facility] Discharge Instruct/Medications Diet: Cardiac 2g Na,low cholest Activity: No Restrictions, As Tolerated Follow Up/Referral: Please follow up with Urology in the outpatient clinic in 1 week Please follow up with PCP in 1-2 weeks Discharge Statement: "Patient was advised to return to the ER or call 911 if any headaches, dizziness, shortness of breath, chest pain, abdominal pain, bleeding, fevers, or worsening of medical condition. Patient was counseled about treatment plan, medications, possible side effects, patientverbalized understanding. All questions were answered to the best of my ability. This discharge took greater then 30 minutes in planning, reviewing documentation, counseling the patient, and discussing with other team members." ASSESSMENT ASSESSMENT Assessment Acute complicated UTI, ESBL E coli Benign prostatic hyperplasia s/p TRUS Acute urinary retention likely due to above Hematuria with stable hemoglobin Type 2 diabetes, Hb A1c 5.5 Peripheral Neuropathy Chronic pain Hypertension Dyslipidemia Slow transit constipation Date of Service: Apr 16, 2024 Billing Provider: KARTIK WALL MD Common Visit Codes: [id number] DISCH DAY >30min Coding Comment Comment I saw and evaluated the patient. I reviewed the residents note and agree with findings and plan as documented in the residents note. [facility] FERNANDEZ RESIDENT Apr 16, 2024 18:13 KARTIK WALL MD Apr 16, 2024 20:53
== END 2024-04-16 18:41 | DRG 713 ==
LOC: ER 14:02 → TELE 21:19 → TELE-CENTR 23:24
PROVIDERS: ADMIT Student in an Organized Health Care Education/Training Program; ATTEND Student in an Organized Health Care Education/Training Program
PROC: 0VT08ZZ Resection of Prostate, Via Natural or Artificial Opening Endoscopic (ICD-10-PCS; principal; 2024-04-15 12:28)
DX: N40.1 Benign prostatic hyperplasia with lower urinary tract symptoms (principal); N30.01 Acute cystitis with hematuria; I11.9 Hypertensive heart disease without heart failure; G62.9 Polyneuropathy, unspecified; E78.5 Hyperlipidemia, unspecified; G89.29 Other chronic pain; K59.01 Slow transit constipation; Z79.899 Other long term (current) drug therapy; B96.29 Other Escherichia coli [E. coli] as the cause of diseases classified elsewhere
CPT/HCPCS: 36415; 80048; 80053; 81001; 82306; 82607; 82962; 83036; 84443; 85025; 85610; 85730; 87081; 87086; G0378; J1335

== ENCOUNTER 2024-08-05 14:29 | Inpatient (IN) | payer OTHER, MEDICARE, MEDICAID ==
[~2024-08-05] VITALS: Ht 170.2 cm; Wt 70.0 kg
[~2024-08-05 14:29] MED LIST changes: -HYDR2TAB58 PO
[2024-08-05 15:12] LABS: Basophils # (auto) 0 10 ^3/uL (0-0.2); Basophils % (auto) 0.3 % (0.0-2.0); Eosinophils # (auto) 0 10 ^3/uL (0-0.8); Hematocrit 39.6 % (41.0-53.0); Hemoglobin 12.9 g/dL (13.5-17.5); Lymphocytes # (auto) 0.7 10 ^3/uL (0.4-5.4); Lymphocytes % (auto) 5.4 % (10.0-50.0); Mean Corpuscular Hemoglobin 29.2 pg (28.0-32.0); Mean Corpuscular Hgb Conc. 32.5 g/dL (32.0-36.0); Mean Corpuscular Volume 89.9 fL (80.0-100.0); Monocytes # (auto) 0.6 10 ^3/uL (0-1.3); Monocytes % (auto) 4.2 % (0.0-12.0); Neutrophils # (auto) 11.7 10 ^3/uL (1.6-8.6); Neutrophils % (auto) 90.1 % (37.0-80.0); Platelet Count (auto) 316 10^3/uL (140-450); Red Blood Cells 4.41 10^6/uL (4.5-5.90); Red Cell Distribution Width 15.5 % (11.8-14.3)
[2024-08-05 15:17] LABS: Chloride 100 mmol/L (98-107); Potassium 4.2 mmol/L (3.5-5.1)
[2024-08-05 15:18] LABS: Anion Gap 11 (5-15); Carbon Dioxide 23 mmol/L (20-31)
[2024-08-05 15:19] LABS: Calcium 9.9 mg/dL (8.7-10.4)
[2024-08-05 15:23] LABS: BUN/Creatinine Ratio 22.5 (10.0-20.0); Blood Urea Nitrogen 20 mg/dL (9-23)
[2024-08-05 15:24] LABS: Glucose 180 mg/dL (74-106); Sodium 134 mmol/L (136-145)
--- NOTE | 2024-08-05 15:30 | ED.PDOC ---
History of Present Illness HPI Comments 84 y/o M is BIBA from home for c/o mid-back and abdominal pain, today. Per EMS report, patient is a [place] speaker and endorses on sudden worsening of back pain, with radiation to his abdomen, while sitting in his wheelchair, this morning, following initial gradual onset, last night. He comments on pain onset being unprovoked, with no reports of any recent prior injuries. He has a reported history neuropathy with gabapentin use, 2x previous back surgeries, BPH s/p prostatectomy 1x month ago, HLD, and hernia repair. Patient was noted to have vitals stable and within normal limits on scene and en route. He denies having any chest pain, shortness of breath, nausea, vomiting, weakness, t ingling, or numbness at this time. Chief Complaint: Back Pain Time Seen by MD: 14:40 Primary Care Provider: OTIS Reviewed Notes: Nurses Notes, Poured Pipe Maker Notes, Medications, Allergies Allergies: Coded Allergies: NO KNOWN ALLERGIES (Unverified , 03/03/16) Home Meds Active Scripts Docusate Sodium (Colace) 100 Mg Cap, 1 CAP PO BID, #30 CAP Prov:KELSEY ROSE NP 03/26/24 Methocarbamol (Methocarbamol) 750 Mg Tab, 750 MG PO TID, #30 TAB Prov:JAMIL ARNETT MD 02/06/22 Gabapentin (Gabapentin) 300 Mg Cap, 1 CAP PO TID for 30 Days, #90 CAP 5 Refills Prov:YESSI LEON MD 01/05/22 Folic Aiho-Yjrmdqmkkv-Cfwjpovz (Folbic) Tab, 1 TAB PO DAILY, #90 TAB 3 Refills Prov:YESSI LEON MD 01/05/22 Reported Medications Quetiapine Fumerate (Seroquel) 50 Mg Tab, 25 MG PO DAILY, TAB 03/24/24 Tamsulosin Hcl (Tamsulosin Hcl) 0.4 Mg Cap, 0.4 NG PO DAILY 03/24/24 Multiple Vitamin (Multivitamins) Cap, 1 CAP PO DAILY, CAP 12/04/20 Pantoprazole Sodium Sesquihydr (Protonix) 40 Mg Tab, 40 MG PO DAILY, #30 TAB 12/04/20 Magnesium Oxide (MAGNESIUM OXIDE) 400 Mg Tab, 400 MG PO DAILY, TAB 12/04/20 Hydrochlorothiazide (Hydrochlorothiazide) 25 Mg Tab, 25 MG PO DAILY, TAB 12/04/20 Atorvastatin Calcium (Lipitor) 20 Mg Tab, 20 MG PO DAILY, TAB 12/04/20 Losartan Potassium (Losartan Potassium) 50 Mg Tab, 50 MG PO DAILY, TAB 12/04/20 Information Source: Patient, Emergency Med Personnel Mode of Arrival: EMS Severity: Moderate Timing: Hours Duration: Since onset Prehospital treatment: 12 Lead EKG, Multimedia Journalist Past Medical History PAST MEDICAL HISTORY: High Lipids Past Medical History (Other): BPH s/p prostectomy, neuropathy Surgical History: Appendectomy, Hernia Repair Surgical History (Other): 2x back surgeries Family History Family History: Reviewed,noncontributory to illness Social History Smoker: Non-Smoker Alcohol: Denies ETOH Use Drugs: Denies Drug Use Lives In: Home Constitutional: denies: chills, diaphoresis, fatigue, fever, malaise, sweats, weakness, others EENTM: denies: blurred vision, double vision, ear bleeding, ear discharge, ear drainage, ear pain, ear ringing, eye pain, eye redness, hearing loss, mouth pain, mouth swelling, nasal discharge, nose bleeding, nose congestion, nose pain, photophobia, tearing, throat pain, throat swelling, voice changes, others Respiratory: denies: cough, hemoptysis, orthopnea, SOB at rest, shortness of breath, SOB with excertion, stridor, wheezing, others Cardiovascular: denies: chest pain, dizzy spells, diaphoresis, Dyspnea on exertion, edema, irregular heart beat, left arm pain, lightheadedness, palpitations, PND, syncope, others Gastrointestinal: reports: abdominal pain; denies: abdomen distended, blood streaked bowels, constipated, diarrhea, dysphagia, difficulty swallowing, hematemesis, melena, nausea, poor appetite, poor fluid intake, rectal bleeding, rectal pain, vomiting, others Genitourinary: denies: burning, dysuria, flank pain, frequency, hematuria, incontinence, penile discharge, penile sore, pain, testicle pain, testicle swelling, urgency, others Neurological: denies: dizziness, fainting, headache, left sided numbness, left sided weakness, numbness, paresthesia, pre-existing deficit, right sided numbness, right sided weakness, seizure, speech problems, tingling, tremors, weakness, others Musculoskeletal: reports: back pain; denies: gout, joint pain, joint swelling, muscle pain, muscle stiffness, neck pain, others Integumetry: denies: bruises, change in color, change in hair/nails, dryness, laceration, lesions, lumps, rash, wounds, others Allergic/Immunocompromised: denies: Difficulty Healing, Frequent Infections, Hives, Itching, others Hematologic/Lymphatic: denies: anemia, blood clots, easy bleeding, easy bruisi ng, swollen glands, others Endocrine: denies: excessive hunger, excessive sweating, excessive thirst, exce ssive urination, flushing, intolerance to cold, intolerance to heat, unexplained weight gain, unexplained weight loss, others Psychiatric: denies: anxiety, bipolar disorder, depression, hopeless, panic disorder, schizophrenia, sleepless, suicidal, others All Other Systems: Reviewed and Negative (negative unless otherwise stated above or in HPI) Physical Exam General Appearance: Moderate Distress HEENT: Normal ENT Inspection, Pharynx Normal, TMs Normal Neck: Full Range of Motion, Non-Tender, Normal, Normal Inspection Respiratory: Chest Non-Tender, Lungs Clear, No Accessory Muscle Use, No Respiratory Distress, Normal Breath Sounds Cardiovascular: No Edema, No JVD, No Murmur, No Gallop, Normal Peripheral Pulses, Regular Rate/Rhythm Breast Exam: Deferred Gastrointestinal: No Organomegaly, Non Tender, No Pulsatile Mass, Normal Bowel Sounds, Soft Genitalia: Deferred Pelvic: Deferred Rectal: Deferred Extremities: No calf tenderness, Normal capillary refill, No pedal edema Musculoskeletal : Location: Bilateral Extremity Location: Back Apperance: Tenderness: Moderate Neurologic: Alert, ornament stitcher II-XII nml as Tested, No Motor Deficits, Normal Affect, Normal Mood, No Sensory Deficits Cerebellar Function: Normal Reflexes: Normal Skin: Dry, Normal Color, Warm Lymphatic: No Adenopathy Was a procedure done? Was a procedure done?: No Differential Dx Considerations may include: musculoskeletal pain, AAA, DDD, chronic back pain, viral syndrome X-Ray, Labs, Meds, VS Vital Signs Date Time Temp Pulse Resp B/P (MAP) Pulse Ox O2 Delivery O2 Flow Rate FiO2 08/05/24 19:30 97 18 97 Room Air* 0 21 08/05/24 19:30 97.8 97 18 146/92 (110) 96 97.8 08/05/24 17:58 100 19 157/96 (116) 95 08/05/24 17:58 100 18 157/96 08/05/24 16:25 99 20 99 Room Air* 0 21 08/05/24 16:12 105 20 121/76 08/05/24 16:12 99.1 105 20 121/76 (91) 95 99.1 08/05/24 14:38 98.7 104 20 170/81 (110) 95 Lab Test 08/05/24 14:53 Range/Units White Blood Count 13.0 H 4.4-10.8 10^3/uL Red Blood Count 4.41 L 4.5-5.90 10^6/uL Hemoglobin 12.9 L 13.5-17.5 g/dL Hematocrit 39.6 L 41.0-53.0 % Mean Corpuscular Volume 89.9 80.0-100.0 fL Mean Corpuscular Hemoglobin 29.2 28.0-32.0 pg Mean Corpuscular Hemoglobin Concent 32.5 32.0-36.0 g/dL Red Cell Distribution Width 15.5 H 11.8-14.3 % Platelet Count 316 140-450 10^3/uL Mean Platelet Volume 8.1 6.9-10.8 fL Neutrophils (%) (Auto) 90.1 H 37.0-80.0 % Lymphocytes (%) (Auto) 5.4 L 10.0-50.0 % Monocytes (%) (Auto) 4.2 0.0-12.0 % Eosinophils (%) (Auto) 0.0 0.0-7.0 % Basophils (%) (Auto) 0.3 0.0-2.0 % Neutrophils # (Auto) 11.7 H 1.6-8.6 10 ^3/uL Lymphocytes # (Auto) 0.7 0.4-5.4 10 ^3/uL Monocytes # (Auto) 0.6 0-1.3 10 ^3/uL Eosinophils # (Auto) 0 0-0.8 10 ^3/uL Basophils # (Auto) 0 0-0.2 10 ^3/uL Nucleated Red Blood Cells 0.0 % Sodium Level 134 L 136-145 mmol/L Potassium Level 4.2 3.5-5.1 mmol/L Chloride Level 100 98-107 mmol/L Carbon Dioxide Level 23 20-31 mmol/L Anion Gap 11 5-15 Blood Urea Nitrogen 20 9-23 mg/dL Creatinine 0.89 0.700-1.30 mg/dL Glomerular Filtration Rate Calc 85 >90 mL/min BUN/Creatinine Ratio 22.5 H 10.0-20.0 Serum Glucose 180 H 74-106 mg/dL Calcium Level 9.9 8.7-10.4 mg/dL Current Medications Medications (Trade) Dose Ordered Sig/Zohreh Route Start Time Stop Time Status Last Admin Ondansetron HCl (Zofran) 4 mg ONCE ONCE IV 08/05/24 14:45 08/05/24 14:46 DC 08/05/24 16:09 Morphine Sulfate 2 mg ONCE ONCE IV 08/05/24 14:45 08/05/24 14:46 DC 08/05/24 16:12 IV Hep-Lock was established The patient was given morphine 2 mg IV push The patient was given Zofran 4 mg IV push The patient has a CBC which [place] an [place] [id number] The patient will be admitted at this time We will continue evaluating the patient. Time of 1ST Reevaluation: 15:10 Reevaluation 1ST: Unchanged Patient Education/Counseling: Diagnosis, Treatment, Prognosis Family Education/Counseling: No Family Present Departure 1 Departure Time of Disposition: 20:35 Impression: Primary Impression: Intractable abdominal pain Disposition: ADMITTED INPATIENT Admit to: Med Surg Condition: Fair Critical Care Note Critical Care Time?: No Stability Stability form required: Yes Unstable for transfer: ED Physician Assesment (Clinical assesment) Heart Score Heart Score: Heart Score Response (Comments) Value History N/A 0 EKG N/A 0 Age N/A 0 Risk Factors N/A 0 Troponin N/A 0 Total 0 I personally scribed for ELSA BECK MD ([email or web address]) on 08/05/24 at 15:30. Electronically submitted by George Vo [email or web address]). ELSA BECK MD Aug 05, 2024 15:30
[2024-08-05] MEDS: ONDANSETRON HCL 4 MG/2 ML VIAL IV ONE (16:09)
[2024-08-05] MEDS: MORPHINE SULFATE INJ 2 MG/ml SYRG IV ONE (16:12)
[2024-08-05 16:25] VITALS: PULSE 99; RESP 20; O2SAT 99
[2024-08-05 19:30] VITALS: PULSE 97; RESP 18; O2SAT 97
[2024-08-05] MEDS: LOSARTAN POTASSIUM 50 MG TAB PO ONE (22:12)
[2024-08-05] MEDS: IOHEXOL 300 MG/ML 100ML BOTTLE IJ ONE (23:06)
--- NOTE | 2024-08-05 23:41 | DVH ---
Exam: CT CT AB PEL WITH IV CON ONLY History: abdominal pain Comparison Study: None Contrast: Type of contrast: Omnipaque 300 Contrast injected: 100 mL Contrast wasted: 0 TECHNIQUE: Multidetector CT of abdomen and pelvis with IV contrast. Radiation Dose Information: CT Dose: CTDI volume is 14.08 mGy. Dose-length product is 848.33 mGy*cm FINDINGS: Lung bases demonstrates posterior stranding which is nonspecific but could indicate either early infi ltrates or chronic changes. Heart is enlarged. There is an eventration of the left hemidiaphragm. Th e gallbladder has a rind of edema fluid suggesting acute cholecystitis. No gallstones are seen. Kidne ys have bilateral peripelvic cysts no evidence for dilated ureters. Pancreas is atrophied Patient has a moderately large stool burden may be constipated. Prostate is enlarged measuring 6.5 by 4.8 by 6.3 cm. Patient has had compression fractures involving L2 and T12. Spider stabilization of the posterior britney ments. There is a large amount of dense stool in the rectosigmoid suggesting constipation. No obstruction is appreciated. IMPRESSION: Findings in the lung bases suggest either early infiltrates or changes. Patient has an abnormal appearing gallbladder suggesting cholecystitis. Follow-up HIDA scan is sugge sted. Patient has a large stool burden may be constipated dizziness compression fractures of the thoracolum bar spine at 2 levels. HS:Y
[2024-08-06] VITALS (9 sets, daily range): BP systolic 101–134; BP diastolic 52–61; PULSE 61–74; RESP 14–19; TEMP 97.3–98.2; O2SAT 91–95
[2024-08-06] MEDS: SODIUM CHLORIDE 0.9% 1,000 ML IV SCH (00:39)
[2024-08-06] MEDS: PIPERACILLIN-TAZOB 3.375GM 100 ML IV SCH (00:39)
[2024-08-06 00:59] LABS: Albumin 4.5 g/dL (3.2-4.8); Anion Gap 13 (5-15); Aspartate Aminotransferase 30 U/L (13-40); Bilirubin, Total 0.8 mg/dL (0.2-1.0); Blood Urea Nitrogen 20 mg/dL (9-23); Calcium 10.1 mg/dL (8.7-10.4); Carbon Dioxide 20 mmol/L (20-31); Chloride 100 mmol/L (98-107); Lipase 34 U/L (12-53); Potassium 4.2 mmol/L (3.5-5.1); Total Protein 7.7 g/dL (5.7-8.2)
[2024-08-06 01:02] LABS: Alanine Aminotransferase 77 U/L (7-40); Alkaline Phosphatase 124 U/L (46-116); Glucose 175 mg/dL (74-106); Sodium 133 mmol/L (136-145)
[2024-08-06 01:53] LABS: Triglycerides 46 mg/dL (< 150)
[2024-08-06 01:54] LABS: LDL Cholesterol 71 mg/dL (< 100)
[2024-08-06 01:56] LABS: Cholesterol 155 mg/dL (< 200)
[2024-08-06 02:02] LABS: HDL Cholesterol 67 mg/dL (40-59)
--- NOTE | 2024-08-06 03:12 | DVH ---
INDICATION: rule out gallstones TECHNIQUE: Multiple real-time sonographic images of the right upper quadrant of the abdomen were obt ained. COMPARISON: None FINDINGS: The examination is extremely limited as the patient could not position properly as well as due to exc essive bowel gas obscuring the abdominal organs. The liver is difficult to image, somewhat heterogeneous in echogenicity. No intrahepatic biliary duct al dilatation is noted. No hepatic masses were seen. The gallbladder is not seen. The common duct is obscured. No pericholecystic fluid is noted. The right kidney measures 10.95 cm. The right renal echogenicity, contour and cortical thickness are within normal limits. No hydronephrosis or large masses are seen. The pancreas is obscured by bowel gas. The abdominal aorta and inferior vena cava are obscured by bowel gas. IMPRESSION: 1. Extremely limited examination.
[2024-08-06] MEDS ORDERED: MORPHINE SULFATE INJ 2 MG/ml SYRG IV PRN (03:15)
--- NOTE | 2024-08-06 04:01 | DVHHPRES ---
History of Present Illness Resident Creating Document: ANAYELI BELTRAN RESIDENT Reason for Visit: acute abdominal pain History of Present Illness 84-year-old male with a history of atrial fibrillation, BPH (s/p prostatectomy 1 month ago), hyperlipidemia, and neuropathy presents from home for evaluation of mid-back and abdominal pain. Per EMS, the patient endorses sudden worsening of back pain radiating to the abdomen while sitting in his wheelchair earlier this morning. He denies any recent trauma. He also reports right-sided pain but does not clearly localize it to the lower quadrant. On arrival, his vital signs were stable. He denies chest pain, shortness of breath, nausea, vomiting, weakness, tingling, or numbness. He is hypertensive on admission (BP 170/81). CT abdomen and pelvis show: Abnormal-appearing gallbladder, possible acute cholecystitis Lung bases with infiltrates or chronic changes. Compression fractures in T12 and L2 with prior surgical stabilization. Large stool burden suggestive of constipation. Labs notable for leukocytosis (WBC 13.0), elevated ALT (77), ALP (124) Given the findings, the patient will be admitted for possible acute cholecystitis PAST MEDICAL HISTORY: Atrial fibrillation (not on anticoagulation), hypertension, Hyperlipidemia, BPH (s/p prostatectomy), Neuropath Compression fractures (T12, L2 with surgical stabilization), Surgical History: Prostatectomy, hernia repair, spine surgery MEDICATIONS AT HOME Atorvastatin 20 mg PO daily, Gabapentin 300 mg PO TID, Folic Acid 1 mg PO daily, Hydrochlorothiazide 25 mg PO daily,Losartan 50 mg PO daily,Methocarbamol 750 mg PO TID,Pantoprazole 40 mg PO daily,Docusate 100 mg PO BID,Quetiapine 50 mg PO daily,Multiple Vitamins,Oxycodone 5 mg PO q6h PRN pain ALLERGIES No known allergies Review of Systems Constitutional: No: Fever, Chills, Sweats, Weakness, Malaise, Other Eyes: No: Pain, Vision change, Conjunctivae inflammation, Eyelid inflammation, Other, Redness ENT: No: Ear pain, Ear discharge, Nose pain, Nose discharge, Nose congestion, Mouth pain, Mouth swelling, Throat pain, Throat swelling, Other Respiratory: No: Cough, Dry, Shortness of breath, SOB with excertion, Wheezing, Hemoptysis, Pleuritic Pain, Sputum, Wheezing, Other Cardiovascular: No: Chest Pain, Palpitations, Orthopnea, Paroxysmal Noc. Dyspnea, Edema, Lt Headedness, Other Gastrointestinal: Abdominal Pain; No: Nausea, Vomiting, Diarrhea, Constipation, Melena, Hematochezia, Other Genitourinary: No Dysuria, No Frequency, No Incontinence, No Hematuria, No Retention, No Other Musculoskeletal: No: other, neck pain, shoulder pain, arm pain, back pain, hand pain, leg pain, foot pain Skin: No: Rash, Lesions, Jaundice, Bruising, Other Neurological: No: Weakness, Numbness, Incoordination, Change in speech, Confusion, Seizures, Other Allergies: Coded Allergies: NO KNOWN ALLERGIES (Unverified , 03/03/16) Medications Current Medications Medications Dose Ordered Sig/Zohreh Route Start Time Stop Time Status Last Admin Dose Admin Piperacillin Sod/ Tazobactam Sod 100 ml @ 25 mls/hr Q6HR IV 08/06/24 00:00 08/06/24 00:39 25 MLS/HR Sodium Chloride 1,000 ml @ 75 mls/hr [id number] IV 08/06/24 00:00 08/06/24 00:39 75 MLS/HR Acetaminophen 650 mg Q4HP PRN PO 08/06/24 03:15 Morphine Sulfate 2 mg Q6HPRN PRN IV 08/06/24 03:15 Losartan Potassium 50 mg DAILY PO 08/06/24 10:00 Exam Vital Signs Vital Signs Date Time Temp Pulse Resp B/P (MAP) Pulse Ox O2 Delivery O2 Flow Rate FiO2 08/06/24 02:02 16 Room Air* 0 21 08/06/24 01:52 97.7 74 134/59 (84) 91 97.7 Exam General: Elderly male, alert but poor historian, no acute distress. HEENT: No signs of trauma. Cardiac: Regular rate and rhythm, no murmurs, rubs, or gallops. Pulmonary: No respiratory distress, no rales or wheezing. Abdomen: Mildly tender in RUQ, no rebound or guarding. Neurologic: No focal deficits, moves all extremities. Musculoskeletal: Mid-back tenderness, no bony deformities. Labs/Xrays Labs Test 08/05/24 14:53 Range/Units White Blood Count 13.0 H 4.4-10.8 10^3/uL Red Blood Count 4.41 L 4.5-5.90 10^6/uL Hemoglobin 12.9 L 13.5-17.5 g/dL Hematocrit 39.6 L 41.0-53.0 % Mean Corpuscular Volume 89.9 80.0-100.0 fL Mean Corpuscular Hemoglobin 29.2 28.0-32.0 pg Mean Corpuscular Hemoglobin Concent 32.5 32.0-36.0 g/dL Red Cell Distribution Width 15.5 H 11.8-14.3 % Platelet Count 316 140-450 10^3/uL Mean Platelet Volume 8.1 6.9-10.8 fL Neutrophils (%) (Auto) 90.1 H 37.0-80.0 % Lymphocytes (%) (Auto) 5.4 L 10.0-50.0 % Monocytes (%) (Auto) 4.2 0.0-12.0 % Eosinophils (%) (Auto) 0.0 0.0-7.0 % Basophils (%) (Auto) 0.3 0.0-2.0 % Neutrophils # (Auto) 11.7 H 1.6-8.6 10 ^3/uL Lymphocytes # (Auto) 0.7 0.4-5.4 10 ^3/uL Monocytes # (Auto) 0.6 0-1.3 10 ^3/uL Eosinophils # (Auto) 0 0-0.8 10 ^3/uL Basophils # (Auto) 0 0-0.2 10 ^3/uL Nucleated Red Blood Cells 0.0 % Sodium Level 133 L 136-145 mmol/L Potassium Level 4.2 3.5-5.1 mmol/L Chloride Level 100 98-107 mmol/L Carbon Dioxide Level 20 20-31 mmol/L Anion Gap 13 5-15 Blood Urea Nitrogen 20 9-23 mg/dL Creatinine 0.80 0.700-1.30 mg/dL Glomerular Filtration Rate Calc 88 >90 mL/min BUN/Creatinine Ratio 25.0 H 10.0-20.0 Serum Glucose 175 H 74-106 mg/dL Hemoglobin A1c 5.3 <5.7 % A1C Calcium Level 10.1 8.7-10.4 mg/dL Total Bilirubin 0.8 0.2-1.0 mg/dL Aspartate Amino Transferase (AST) 30 13-40 U/L Alanine Aminotransferase (ALT) 77 H 7-40 U/L Alkaline Phosphatase 124 H 46-116 U/L Total Protein 7.7 5.7-8.2 g/dL Albumin 4.5 3.2-4.8 g/dL Triglycerides Level 46 < 150 mg/dL Cholesterol Level 155 < 200 mg/dL LDL Cholesterol 71 < 100 mg/dL HDL Cholesterol 67 H 40-59 mg/dL Lipase 34 12-53 U/L Thyroid Stimulating Hormone (TSH) 0.97 0.55-4.78 uIU/mL Assessment/Plan Assessment/Plan 84-year-old male with a history of atrial fibrillation (not on anticoagulation), hypertension, hyperlipidemia, neuropathy, and compression fractures presenting with back pain and abdominal pain. # Sepsis due to Possible acute cholecystitis Start Zosyn for broad coverage Abdominal US Surgical consult Tylenol and morphine PRN IV fluids #lung infiltrates on CT #Pneumonia gram +/ gram - rule out Evaluate for pneumonia vs. chronic lung disease: no respiratory symptoms Pending chest X-ray #Hypertensive urgency Losartan 50 mg PO Monitor BP trends #Back pain, history of compression fractures Morphine and tylenol PRN #H/o of Atrial fibrillation (not on anticoagulation) CHADVASC 3 HASBLED 2 EKG and echocardiogram ordered sinus rhythm at exam Consider restart anticoagulation after surgery consult #Constipation (large stool burden on CT) Senna and miralax Case discussed with Dr Rodriguez Plan discussed with: Patient, Other (rn) My Orders Orders - ANAYELI BELTRAN RESIDENT Procedure Category Date Status Time Admit ADMIT 08/05/24 Transmitted 21:41 Ct Ab Pel With Iv Con CT 08/05/24 Resulted Only 21:41 Piperacillin-Tazob PHA 08/06/24 In Process 3.375gm (Zosyn 3.375g 00:00 Sodium Chloride 0.9% PHA 08/06/24 In Process 00:00 Drug Screen LAB 08/05/24 Logged 23:47 Gallbladder US 08/06/24 Resulted 00:00 Acetaminophen Tablet PHA 08/06/24 In Process (Tylenol Tablet) 03:15 Morphine Sulfate PHA 08/06/24 In Process Injection 03:15 Losartan Tablet PHA 08/06/24 In Process (Cozaar Tablet) 10:00 Covid19 Antigen Becky LAB 08/06/24 Logged Rapid Influenza A&B LAB 08/06/24 Logged 03:09 Chest Xray 1 View XY 08/06/24 Logged 03:09 Echo 2d Mode Cardiac US 08/06/24 Logged DOP 03:10 Electrocardigram EKG 08/06/24 Logged 03:10 * Surgical Consult CONS 08/06/24 Transmitted Date of Service: Aug 05, 2024 Billing Provider: FANI RODRIGUEZ MD Common Visit Codes: [id number] INP/OBS CARE (HIGH) Secondary Visit Codes: [id number] CARE PLAN 30 MINUTES ANAYELI BELTRAN RESIDENT Aug 06, 2024 04:01 FANI RODRIGUEZ MD Aug 06, 2024 09:23
--- NOTE | 2024-08-06 05:38 | DVH ---
EXAM: XR Chest, 1 View CLINICAL INDICATION: pneumonia TECHNIQUE: Frontal view of the chest. COMPARISON: CHEST PORTABLE on DOS: 01/05/22, CXRP on DOS: 01/05/22 FINDINGS: LUNGS AND PLEURAL SPACES: Unremarkable. No consolidation. No pneumothorax. HEART: Unremarkable. No cardiomegaly. MEDIASTINUM: Unremarkable. Normal mediastinal contour. BONES/JOINTS: Unremarkable. No acute fracture. OTHER FINDINGS: . None. IMPRESSION: No acute cardiopulmonary process.
[2024-08-06 06:01] LABS: Alkaline Phosphatase 100 U/L (46-116); Anion Gap 9 (5-15); Aspartate Aminotransferase 25 U/L (13-40); BUN/Creatinine Ratio 20.7 (10.0-20.0); Blood Urea Nitrogen 17 mg/dL (9-23); Calcium 10.1 mg/dL (8.7-10.4); Carbon Dioxide 25 mmol/L (20-31); Chloride 103 mmol/L (98-107); Glucose 88 mg/dL (74-106); Potassium 4.1 mmol/L (3.5-5.1); Sodium 137 mmol/L (136-145)
[2024-08-06 06:02] LABS: Total Protein 6.8 g/dL (5.7-8.2)
[2024-08-06] MEDS: SENNA 8.6 MG TAB PO SCH (06:16)
[2024-08-06] MEDS: POLYETHYLENE GLYCOL 17 GM PWDR PO ONE (06:16)
[2024-08-06 06:18] LABS: Basophils # (auto) 0 10 ^3/uL (0-0.2); Basophils % (auto) 0.3 % (0.0-2.0); Eosinophils # (auto) 0 10 ^3/uL (0-0.8); Eosinophils % (auto) 0.3 % (0.0-7.0); Hemoglobin 11.2 g/dL (13.5-17.5); Lymphocytes % (auto) 19.9 % (10.0-50.0); Mean Corpuscular Hemoglobin 29.5 pg (28.0-32.0); Mean Corpuscular Volume 89.2 fL (80.0-100.0); Monocytes % (auto) 9.8 % (0.0-12.0); Neutrophils % (auto) 69.7 % (37.0-80.0); Platelet Count (auto) 273 10^3/uL (140-450); Red Blood Cells 3.81 10^6/uL (4.5-5.90); Red Cell Distribution Width 15.4 % (11.8-14.3); White Blood Cell 10.1 10^3/uL (4.4-10.8)
[2024-08-06 06:43] LABS: Alanine Aminotransferase 58 U/L (7-40); Bilirubin, Total 1.3 mg/dL (0.2-1.0)
[2024-08-06] MEDS ORDERED: LOSARTAN POTASSIUM 50 MG TAB PO SCH (10:00)
--- NOTE | 2024-08-06 10:24 | DVHPNRES ---
Progress Note Date Seen: Aug 06, 2024 Resident Creating Document: [place] RESIDENT Medical Necessity Reason Pt with a Central, PICC or Fol: No Subjective Review of Systems Patient is a 84-year-old male with past medical history of BPH s/p TRUS, urinary retention, peripheral neuropathy, scoliosis, chronic atrial fibrillation, came in due to abdominal pain. Patient is AO x4, however, a poor historian who does not talk much and is currently somnolent. Per patient, he has been having right-sided abdominal pain for the past 1 week, at onset it was 10/10, however, currently he rates the pain as 2/10. Patient notes he had last bowel movement yesterday which was small in volume. CT abdomen pelvis showed early infiltrate in lung bases, abnormal appearing gallbladder suggesting cholecystitis, follow up HIDA scan suggested. Large stool burden may be constipated, compression fracture of the thoracolumbar spine at 2 levels. Past surgical history: TRUS, appendectomy, back surgery Home medications: Atorvastatin, gabapentin, hydrochlorothiazide, Dilaudid, losartan, magnesium oxide, methocarbamol, quetiapine, tamsulosin, Protonix Past Hospitalization: 04/16/2024 for hematuria at the [facility] Social & Personal history: Patient lives with his . Denies using tobacco, alcohol, drugs. Allergies: Patient seen and examined at bedside. Patient is alert and oriented to time, place person, however, not responding to most questions General: Fatigue Eyes: No Pain, No Vision change, No Conjunctivae inflammation, No Eyelid inflammation, No Other, No Redness ENT: No Ear pain, No Ear discharge, No Nose pain, No Nose discharge, No Nose congestion, No Mouth pain, No Mouth swelling, No Throat pain, No Throat swelling, No Other Cardiovascular: No Chest Pain, No Palpitations, No Orthopnea, No Paroxysmal No Dyspnea, No Edema, No Lt Headedness, No Other Respiratory: No Cough, No Dry, No Shortness of breath, No SOB with exertion, No Wheezing, No Hemoptysis, No Pleuritic Pain, No Sputum, No Other Gastrointestinal: No Nausea, No Vomiting, No Abdominal Pain, No Diarrhea, No Constipation, No Melena, No Hematochezia, No Other Genitourinary: No Dysuria, No Frequency, No Incontinence, No Hematuria, No Retention, No Other Musculoskeletal: No other, No neck pain, No shoulder pain, No arm pain, No back pain, No hand pain, No leg pain, No foot pain Skin: No Rash, No Lesions, No Jaundice, No Bruising, No Other Objective vital signs Vital Sign Date Time Temp Pulse Resp B/P (MAP) Pulse Ox O2 Delivery O2 Flow Rate FiO2 08/06/24 09:00 97.5 68 16 121/60 (80) 92 97.5 08/06/24 08:00 Room Air* 0 21 Total Intake and Output 08/05/24 08/05/24 08/06/24 15:00 23:00 07:00 Intake Total 100 ml Balance 100 ml medications Current Medications Medications Dose Ordered Sig/Zohreh Route Start Time Stop Time Status Last Admin Dose Admin Piperacillin Sod/ Tazobactam Sod 100 ml @ 25 mls/hr Q6HR IV 08/06/24 00:00 08/06/24 06:16 25 MLS/HR Sodium Chloride 1,000 ml @ 75 mls/hr [id number] IV 08/06/24 00:00 08/06/24 00:39 75 MLS/HR Acetaminophen 650 mg Q4HP PRN PO 08/06/24 03:15 Morphine Sulfate 2 mg Q6HPRN PRN IV 08/06/24 03:15 Losartan Potassium 50 mg DAILY PO 08/06/24 10:00 Hold Sennosides 8.6 mg HS PO 08/06/24 04:00 08/06/24 06:16 8.6 MG Examination General Appearance: Drowsy and somnolent. Masked facies? Well developed. Well nourished. NAD Head Exam: Normal inspection Neck Exam: Normal inspection. Non-tender. Normal alignment Pulmonary/Respiratory: Chest non-tender. Clear bilateral breath sounds, no crackles, no wheezing. Cardiovascular/Chest: Regular rate and rhythm. No murmurs. No JVD. Peripheral Pulses: 2+ Radial (R). 2+ Radial (L). 2+ Pedal (R). 2+ Pedal (L) Abdominal Exam: Normal bowel sounds. Soft. Right upper quadrant tenderness to palpation, positive Wilson's sign, no visible veins. No hepatospenomegaly. No masses Ankle Exam: Negative ankle edema Lower extremities: Negative lower extremity edema Neuro/Mental Status: A&O x4. Coherent. Thoughts/Psych: Normal thought pattern. Appropriate mood and affect. Good judgement and insight Skin Exam: Normal inspection. Normal color. Warm. Dry laboratory and microbiology Laboratory Tests 08/06/24 04:55 Test 08/06/24 04:55 Range/Units Serum Glucose 88 74-106 mg/dL Labs and/or images reviewed: Labs reviewed by me, Image(s) reviewed by me Problem List/Assessment/Plan Problem List/Assessment/Plan Acute cholecystitis Possible UTI - CT abdomen pelvis: Findings in the lung bases suggest either early infiltrates or changes. Patient has an abnormal appearing gallbladder suggesting cholecystitis. Follow-up HIDA scan is suggested. Patient has a large stool burden may be constipated dizziness compression fractures of the thoracolumbar spine at 2 levels. - gallbladder ultrasound: Extremely limited examination - CXR: No acute cardiopulmonary process - surgery consulted - ordered HIDA scan - IV D5 with NS at 75 cc/hour - IV Zosyn - UA shows 3+ leukocyte esterase, 246 WBCs - ordered urine culture Type 2 diabetes Hypertension Dyslipidemia - atorvastatin 20 mg - currently holding home antihypertensives as blood pressure running soft Peripheral neuropathy Chronic pain likely due to compression fractures Questionable Parkinson's disease? - outpatient follow up recommended - resumed home medication gabapentin Slow transit constipation - senna once - MiraLax once History of BPH - resume home medication tamsulosin PUD prophylaxis: protonix 40mg Goals of care: Full code, discussed for >16 minutes on 08/06/2024 Plan discussed with patient Plan discussed with Dr. Wall Plan discussed with: Patient, Other (RN) Date of Service: Aug 06, 2024 Billing Provider: KARTIK WALL MD Common Visit Codes: [id number] INP/OBS CARE(HIGH) [place] RESIDENT Aug 06, 2024 10:24 KARTIK WALL MD Aug 10, 2024 15:57
[2024-08-06 11:28] LABS: Urine Bacteria None Seen /hpf (None Seen)
[2024-08-06 11:55] LABS: Urine Blood Negative /uL (Negative); Urine Clarity Turbid (Clear); Urine Color Light-Yellow (Yellow); Urine Mucus FEW (None Seen); Urine Protein, UAD TRACE (Negative); Urine Specific Gravity 1.019 (1.001-1.035); Urine Squamous Epithelial Cell FEW /hpf (<5); Urine Urobilinogen Normal (Negative); Urine WBC 246 /HPF (0-3)
[2024-08-06 12:02] LABS: Amphetamine Screen, Urine Neg (NEGATIVE); Barbiturate Scree,Urine Neg (NEGATIVE); Benzodiazephine Screen, Urine Neg (NEGATIVE); Cannabinoid Screen, Urine Neg (NEGATIVE); Cocaine Screen, Urine Neg (NEGATIVE); Opiate Scree,Urine Neg (NEGATIVE); Phencyclidine Screen, Urine Neg (NEGATIVE)
[2024-08-06] MEDS: ACETAMINOPHEN 325 MG TAB PO PRN (13:06)
[2024-08-06 15:12] LABS: Rapid Influenza A Negative (Negative); Rapid Influenza B Negative (Negative)
[2024-08-06 15:13] LABS: COVID19 ANTIGEN SOFIA FIA NEGATIVE (NEGATIVE)
--- NOTE | 2024-08-06 16:55 | DVHINCON2 ---
Date of service: Aug 06, 2024 Family History: Patient reports no known family medical history. Allergies: Coded Allergies: NO KNOWN ALLERGIES (Unverified , 03/03/16) Home Meds Active Scripts Docusate Sodium (Colace) 100 Mg Cap, 1 CAP PO BID, #30 CAP Prov:KELSEY ROSE NP 03/26/24 Methocarbamol (Methocarbamol) 750 Mg Tab, 750 MG PO TID, #30 TAB Prov:JAMIL ARNETT MD 02/06/22 Gabapentin (Gabapentin) 300 Mg Cap, 1 CAP PO TID for 30 Days, #90 CAP 5 Refills Prov:YESSI LEON MD 01/05/22 Folic Wyuu-Enpzebtvlo-Ogneexmc (Folbic) Tab, 1 TAB PO DAILY, #90 TAB 3 Refills Prov:YESSI LEON MD 01/05/22 Reported Medications Quetiapine Fumerate (Seroquel) 50 Mg Tab, 25 MG PO DAILY, TAB 03/24/24 Tamsulosin Hcl (Tamsulosin Hcl) 0.4 Mg Cap, 0.4 NG PO DAILY 03/24/24 Multiple Vitamin (Multivitamins) Cap, 1 CAP PO DAILY, CAP 12/04/20 Pantoprazole Sodium Sesquihydr (Protonix) 40 Mg Tab, 40 MG PO DAILY, #30 TAB 12/04/20 Magnesium Oxide (MAGNESIUM OXIDE) 400 Mg Tab, 400 MG PO DAILY, TAB 12/04/20 Hydrochlorothiazide (Hydrochlorothiazide) 25 Mg Tab, 25 MG PO DAILY, TAB 12/04/20 Atorvastatin Calcium (Lipitor) 20 Mg Tab, 20 MG PO DAILY, TAB 12/04/20 Losartan Potassium (Losartan Potassium) 50 Mg Tab, 50 MG PO DAILY, TAB 12/04/20 Current Medications Current Medications Medications (Trade) Dose Ordered Sig/Zohreh Route PRN Reason Start Time Stop Time Status Last Admin Piperacillin Sod/ Tazobactam Sod 100 ml @ 25 mls/hr Q6HR IV 08/06/24 00:00 08/06/24 12:21 Sodium Chloride 1,000 ml @ 75 mls/hr [id number] IV 08/06/24 00:00 08/06/24 12:51 Acetaminophen (Tylenol Tablet) 650 mg Q4HP PRN PO MILD PAIN (1-3 PAIN SCALE) 08/06/24 03:15 08/06/24 13:06 Morphine Sulfate 2 mg Q6HPRN PRN IV SEVERE PAIN (7-10 PAIN SCALE) 08/06/24 03:15 Losartan Potassium (Cozaar Tablet) 50 mg DAILY PO 08/06/24 10:00 08/06/24 10:37 DC Sennosides (Senokot Tablet) 8.6 mg HS PO 08/06/24 04:00 08/06/24 06:16 Vital Signs Vital Signs Date Time Temp Pulse Resp B/P (MAP) Pulse Ox O2 Delivery O2 Flow Rate FiO2 08/06/24 12:48 97.3 62 16 130/59 (82) 95 97.3 08/06/24 08:00 Room Air* 0 21 Labs/Diagnostic Data Labs Test 08/06/24 13:20 08/06/24 11:15 08/06/24 04:55 08/05/24 14:53 Range/Units Influenza Type A Antigen Negative Negative Influenza Type B Antigen Negative Negative SARS-CoV-2 Antigen (Rapid) Negative NEGATIVE Urine Color Light-yellow Yellow Urine Clarity Turbid H Clear Urine pH 7.0 5.0-9.0 Urine Specific Bon[place]arte 1.019 1.001-1.035 Urine Protein Trace H Negative Urine Ketones Negative Negative Urine Blood Negative Negative /uL Urine Nitrite Negative Negative Urine Bilirubin Negative Negative Urine Urobilinogen Normal Negative mg/dL Urine Leukocyte Esterase 3+ Negative /uL Urine RBC 7 0 - 3 /hpf Urine Microscopic WBC 246 H 0-3 /HPF Urine Squamous Epithelial Cells Few <5 /hpf Urine Bacteria None seen None Seen /hpf Urine Mucus Few None Seen Urine Glucose Normal Normal mg/dL Urine Opiates Screen Neg NEGATIVE Urine Fentanyl Screen Neg NEGATIVE Urine Barbiturates Screen Neg NEGATIVE Urine Phencyclidine Screen Neg NEGATIVE Urine Amphetamines Screen Neg NEGATIVE Urine Benzodiazepines Screen Neg NEGATIVE Urine Cocaine Screen Neg NEGATIVE Urine Cannabinoids Screen Neg NEGATIVE White Blood Count 10.1 4.4-10.8 10^3/uL Red Blood Count 3.81 L 4.5-5.90 10^6/uL Hemoglobin 11.2 L 13.5-17.5 g/dL Hematocrit 34.0 #L 41.0-53.0 % Mean Corpuscular Volume 89.2 80.0-100.0 fL Mean Corpuscular Hemoglobin 29.5 28.0-32.0 pg Mean Corpuscular Hemoglobin Concent 33.0 32.0-36.0 g/dL Red Cell Distribution Width 15.4 H 11.8-14.3 % Platelet Count 273 140-450 10^3/uL Mean Platelet Volume 8.1 6.9-10.8 fL Neutrophils (%) (Auto) 69.7 37.0-80.0 % Lymphocytes (%) (Auto) 19.9 10.0-50.0 % Monocytes (%) (Auto) 9.8 0.0-12.0 % Eosinophils (%) (Auto) 0.3 0.0-7.0 % Basophils (%) (Auto) 0.3 0.0-2.0 % Neutrophils # (Auto) 7.0 1.6-8.6 10 ^3/uL Lymphocytes # (Auto) 2.0 0.4-5.4 10 ^3/uL Monocytes # (Auto) 1.0 0-1.3 10 ^3/uL Eosinophils # (Auto) 0 0-0.8 10 ^3/uL Basophils # (Auto) 0 0-0.2 10 ^3/uL Nucleated Red Blood Cells 0.0 % Sodium Level 137 136-145 mmol/L Potassium Level 4.1 3.5-5.1 mmol/L Chloride Level 103 98-107 mmol/L Carbon Dioxide Level 25 20-31 mmol/L Anion Gap 9 5-15 Blood Urea Nitrogen 17 9-23 mg/dL Creatinine 0.82 0.700-1.30 mg/dL Glomerular Filtration Rate Calc 87 >90 mL/min BUN/Creatinine Ratio 20.7 H 10.0-20.0 Serum Glucose 88 74-106 mg/dL Calcium Level 10.1 8.7-10.4 mg/dL Total Bilirubin 1.3 H 0.2-1.0 mg/dL Aspartate Amino Transferase (AST) 25 13-40 U/L Alanine Aminotransferase (ALT) 58 H 7-40 U/L Alkaline Phosphatase 100 46-116 U/L Total Protein 6.8 5.7-8.2 g/dL Albumin 4.0 3.2-4.8 g/dL Hemoglobin A1c 5.3 <5.7 % A1C Triglycerides Level 46 < 150 mg/dL Cholesterol Level 155 < 200 mg/dL LDL Cholesterol 71 < 100 mg/dL HDL Cholesterol 67 H 40-59 mg/dL Lipase 34 12-53 U/L Thyroid Stimulating Hormone (TSH) 0.97 0.55-4.78 uIU/mL Assessment [id number] R/O AC CHOLECYSTITIS CONSTIPATION US NOT CONFIRMING GALL STONES HIDA SCAN TO DETERMINE THE NEED FOR SURGERY BASED ON ONGOING EVAL Plan discussed with: Other CLAUDE RUIZ MD Aug 06, 2024 16:54
--- NOTE | 2024-08-06 19:15 | DVHSR ---
APPROVED REPORT EXAM: Two-dimensional and M-mode echocardiogram with Doppler and color Doppler. Blood Pressure: 101/53 mmHg INDICATION Rule out CHF RISK FACTORS Height: 67, Weight: 158 DIMENSIONS LVDd4.2 (3.8-5.7cm)LA (2D)4.0 (1.9-4.0cm)Aortic Root3.8 (2.0-3.7cm) LVDs2.9 (2.5-4.0cm)LA (MM) (1.9-4.0cm)Aortic Cusp Exc1.8 (1.5-2.0cm) EF (%) 60.0 (55-70%)Rt. Atrium (1.9-4.0cm)Asc. Aorta cm IVSd1.0 (0.7-1.1cm)RV (D) (1.8-2.4cm) PWd1.1 (0.7-1.1cm) Mitral Valve MitralMitral Stenosis E wave0.59m/sMV Mean GR.mmHg A wave1.03m/sMV Peak GR.mmHg E/A ratio0.62D MVAcm2 DECEL [id number] 1/2 Fonk35di IVRTmsDop MVA4.36cm2 Aortic Valve Aortic ValveAortic Stenosis V11.30m/Winter Mean GR.3mmHg V21.37m/Winter Peak GR.7mmHg LVOT Diameter2.2 (1.8-2.4cm)Doppler AVA3.61cm2 Pulmonic Valve V20.79m/s Other Information Technically limited study due to body habitus. Conclusion Technically good study. Sinus rhythm. Left atrial enlargement. Mild dilation of the sinuses of Valsalva. Mild mitral annular calcification. Tricuspid and pulmonic or structurally normal. Left ventricular function is preserved at 60% with normal RV function. Dopplers unremarkable. No pericardial effusion masses or vegetations.
[2024-08-06] MEDS: GABAPENTIN 300 MG CAP PO SCH (20:50)
[2024-08-06] MEDS: PANTOPRAZOLE 40 MG TAB PO ONE (20:58)
[2024-08-06] MEDS: TAMSULOSIN HYDROCHLORIDE 0.4 MG CAP PO ONE (20:59)
[2024-08-06] MEDS: ATORVASTATIN 20 MG TAB PO ONE (20:59)
[2024-08-06] MEDS: D5W/SOD CHLO 0.9% 1,000 ML IV SCH (21:04)
[2024-08-07] VITALS (7 sets, daily range): BP systolic 125–146; BP diastolic 53–73; PULSE 58–83; RESP 16–18; TEMP 97.4–98.7; O2SAT 92–98
[2024-08-07 06:22] LABS: Basophils # (auto) 0 10 ^3/uL (0-0.2); Basophils % (auto) 0.7 % (0.0-2.0); Eosinophils # (auto) 0.2 10 ^3/uL (0-0.8); Eosinophils % (auto) 3.4 % (0.0-7.0); Hematocrit 32.3 % (41.0-53.0); Hemoglobin 10.7 g/dL (13.5-17.5); Lymphocytes # (auto) 1.5 10 ^3/uL (0.4-5.4); Lymphocytes % (auto) 22.3 % (10.0-50.0); Mean Corpuscular Hemoglobin 29.6 pg (28.0-32.0); Mean Corpuscular Hgb Conc. 33.2 g/dL (32.0-36.0); Mean Corpuscular Volume 89.4 fL (80.0-100.0); Monocytes # (auto) 0.6 10 ^3/uL (0-1.3); Monocytes % (auto) 9.1 % (0.0-12.0); Neutrophils # (auto) 4.2 10 ^3/uL (1.6-8.6); Neutrophils % (auto) 64.5 % (37.0-80.0); Nucleated Red Blood Cells % 0.1 %; Platelet Count (auto) 247 10^3/uL (140-450); Red Blood Cells 3.61 10^6/uL (4.5-5.90); Red Cell Distribution Width 15.5 % (11.8-14.3); White Blood Cell 6.5 10^3/uL (4.4-10.8)
--- NOTE | 2024-08-07 06:23 | DVHPNRES ---
Progress Note Date Seen: Aug 07, 2024 Resident Creating Document: [place]NA MONTE RESIDENT Medical Necessity Reason Pt with a Central, PICC or Fol: No Subjective Review of Systems Patient is a 84-year-old male with past medical history of BPH s/p TRUS, urinary retention, peripheral neuropathy, scoliosis, chronic atrial fibrillation, came in due to abdominal pain. Patient is AO x4, however, a poor historian who does not talk much and is currently somnolent. Per patient, he has been having right-sided abdominal pain for the past 1 week, at onset it was 10/10, however, currently he rates the pain as 2/10. Patient notes he had last bowel movement yesterday which was small in volume. CT abdomen pelvis showed early infiltrate in lung bases, abnormal appearing gallbladder suggesting cholecystitis, follow up HIDA scan suggested. Large stool burden may be constipated, compression fracture of the thoracolumbar spine at 2 levels. Past medical history: Hypertension, dyslipidemia, paroxysmal atrial fibrillation (chads Vasc 3 /has bled 1) not anticoagulated, peripheral neuropathy, scoliosis, BPH status post TURP, chronic back pain, Past surgical history: TURP, appendectomy, back surgery Social history: Patient lives with his . Denies current tobacco, alcohol and other drug abuse Allergies: Denies Home medications: Atorvastatin 20 mg p.o. daily, gabapentin 300 mg p.o. t.i.d., hydrochlorothiazide 25 mg p.o. daily, losartan 50 mg p.o. daily, magnesium oxide, methocarbamol 750 mg p.o. t.i.d., quetiapine 25 mg p.o. daily, tamsulosin, Protonix, docusate p.r.n., folic acid pryridoxin Patient seen and examined at bedside. Patient continues complaining of abdominal pain. Abdominal pain decreased after bowel movement. Objective vital signs Vital Sign Date Time Temp Pulse Resp B/P (MAP) Pulse Ox O2 Delivery O2 Flow Rate FiO2 08/07/24 05:01 98.7 83 18 146/73 (97) 97 98.7 08/06/24 20:00 Room Air* 0 21 Total Intake and Output 0 08/06/24 08/06/24 08/07/24 15:00 23:00 07:00 Intake Total 230 ml 0 ml 0 ml Output Total 200 ml 850 ml 0 ml Balance 30 ml -850 ml 0 ml medications Current Medications Medications Dose Ordered Sig/Zohreh Route Start Time Stop Time Status Last Admin Dose Admin Piperacillin Sod/ Tazobactam Sod 100 ml @ 25 mls/hr Q6HR IV 08/06/24 00:00 08/07/24 02:06 25 MLS/HR Acetaminophen 650 mg Q4HP PRN PO 08/06/24 03:15 08/06/24 20:50 650 MG Morphine Sulfate 2 mg Q6HPRN PRN IV 08/06/24 03:15 Sennosides 8.6 mg HS PO 08/06/24 04:00 08/06/24 20:50 8.6 MG Atorvastatin Calcium 20 mg DAILY PO 08/07/24 10:00 Gabapentin 100 mg TID PO 08/06/24 22:00 08/06/24 20:50 100 MG Pantoprazole Sodium 40 mg DAILY PO 08/07/24 10:00 Tamsulosin HCl 0.4 mg QPM PO 08/07/24 18:00 Dextrose/Sodium Chloride 1,000 ml @ 75 mls/hr [id number] IV 08/06/24 18:00 08/06/24 21:04 75 MLS/HR Examination Patient lying in bed, in no acute distress General: Somnolent, lucid, afebrile, mucosae are moist, mask facies Cardiovascular: Normal S1 and S2. No murmurs, gallops or rubs Respiratory: Normal ventilation mechanics. Clear lung sounds on auscultation Abdomen: Soft, tender to superficial palpation umbilical and right upper and lower quadrants, positive Wilson's and McBurney sign, no organomegaly, normal bowel sounds MSK/skin: Mobilizes 4 limbs. Skin is dry and warm Neurological: Oriented in 3 spheres. No motor no sensitive deficits. Pupils are isocoric and reactive. Cogwheel rigidity, resting tremor laboratory and microbiology Test 08/07/24 05:28 Range/Units Serum Glucose Pending Problem List/Assessment/Plan Problem List/Assessment/Plan # Questionable acute cholecystitis CT abdomen pelvis: Findings in the lung bases suggest either early infiltrates or chronic changes. Patient has an abnormal appearing gallbladder suggesting cholecystitis. Follow-up HIDA scan is suggested. Patient has a large stool burden may be constipated dizziness compression fractures of the thoracolumbar spine at 2 levels. Gallbladder ultrasound: Extremely limited examination Surgery consulted: Continue close observation, patient does have normal LFTs, we will advance diet as tolerated. Hold MRCP and HIDA scan at the moment. Currently on IV D5 with NS at 75 cc/hour Currently under empiric IV antibiotic (IV Zosyn) Blood and urine culture negative at the moment # UTI UA shows 3+ leukocyte esterase, 246 WBCs Currently under empiric IV antibiotic (IV Zosyn) Blood and urine culture negative at the moment # Type 2 diabetes - controlled (hemoglobin A1c 5.3%) Patient is currently on IV D5 and NS at 75 millimeters/hour since he was NPO for three days. Have advance diet to clear liquid diet On insulin sliding scale # Hypertension Currently without home medication Monitor # Dyslipidemia - atorvastatin 20 mg - currently holding home antihypertensives as blood pressure running soft Peripheral neuropathy Continue with gabapentin Questionable Parkinson's disease Presents mask facies, resting tremor and cogwheel rigidity Follow up as outpatient. Patient may benefit from Parkinson's medication # Chronic back pain likely due to compression fractures CT of abdomen and pelvis shows compression fractures of the thoracolumbar spine at 2 levels. Continue with pain management # Constipation Indicated laxative. Presented bowel movement which improved symptoms. # History of BPH - status post prostate resection - resume home medication tamsulosin # Paroxysmal atrial fibrillation (chads Vasc 3 /has bled 1) not anticoagulated Ordered EKG. On physical exam patient has regular S1 and S2, does not impress as AFib. Goals of care discussed with patient for over 18 minutes: Full code status Discussed plan with Dr. Wall, patient and nurses: clinical appeals specialist on board, recommend to hold HIDA or MRCP, patient's abdominal pain improved after bowel movement. Continue with laxatives at this point. We will progress diet to clear liquid diet and advance if tolerated. Plan discussed with: Patient, Other (Nurses) My Orders My Orders Orders - GE[place]NA MONTE RESIDENT Procedure Category Date Status Time Blood Culture NANCY 08/06/24 In Process 10:37 Mrsa Screen NANCY 08/06/24 In Process 10:37 Date of Service: Aug 07, 2024 Billing Provider: KARTIK WALL MD Common Visit Codes: [id number] INP/OBS CARE(HIGH) [place]NA MONTE RESIDENT Aug 07, 2024 06:23 KARTIK WALL MD Aug 10, 2024 16:05
[2024-08-07 06:46] LABS: Anion Gap 8 (5-15); Calcium 9.2 mg/dL (8.7-10.4); Carbon Dioxide 26 mmol/L (20-31); Chloride 106 mmol/L (98-107); Sodium 140 mmol/L (136-145)
[2024-08-07 06:52] LABS: BUN/Creatinine Ratio 16.7 (10.0-20.0); Blood Urea Nitrogen 15 mg/dL (9-23); Glucose 76 mg/dL (74-106)
[2024-08-07 06:55] LABS: Potassium 3.5 mmol/L (3.5-5.1)
--- NOTE | 2024-08-07 09:11 | DVHINCON2 ---
DATE OF CONSULTATION: 08/06/2024 HISTORY OF PRESENT ILLNESS: This patient is 84 years old, unable to give adequate history. Most of the information obtained from the chart. He presents with abdominal pain, now feeling better. He also had a history of constipation, but he had a bowel movement yesterday. No nausea, vomiting. No chest pain. No fever or chills. No hematemesis, melena. No bleeding per rectum. PAST MEDICAL HISTORY: Atrial fibrillation, status post prostatectomy for BPH, neuropathy and back pain and compression fractures. PAST SURGICAL HISTORY: Prostatectomy, hernia repair, spine surgery. PHYSICAL EXAMINATION: VITAL SIGNS: Afebrile, stable signs. HEENT: With no evidence of pallor, cyanosis, or jaundice. NECK: Supple, nontender with no thyromegaly, lymphadenopathy. CHEST AND LUNGS: Clear. HEART: Within normal limits. ABDOMEN: Soft, minimally tender. No rebound. EXTREMITIES: Unremarkable. NEUROLOGIC: He is unchanged. CLINICAL IMPRESSION: Rule out acute cholecystitis. Ultrasound shows no evidence of gallstones and CT scan is also not indicating any free air. All it says is constipation and is suggesting possibility of cholecystitis. PLAN: The plan will be to consider HIDA scan to rule out acute cholecystitis. It says to determine the need for surgery, at this point needs conservative management and close observation. MD LINDSAY Young/BEV/AKIRA TID: [id number] RECEIPT: [id number] cc: Ingrid Treadwell
[2024-08-07] MEDS: PANTOPRAZOLE 40 MG TAB PO SCH (10:21)
[2024-08-07] MEDS: ATORVASTATIN 20 MG TAB PO SCH (10:22)
--- NOTE | 2024-08-07 18:21 | DVHPN2 ---
Progress Note Date Seen: Aug 07, 2024 Medical Necessity Reason Pt with a Central, PICC or Fol: No Objective vital signs Vital Sign Date Time Temp Pulse Resp B/P (MAP) Pulse Ox O2 Delivery O2 Flow Rate FiO2 08/07/24 16:58 97.8 67 16 144/65 (91) 97 97.8 08/07/24 08:00 Room Air* 0 21 Total Intake and Output 08/06/24 08/06/24 08/07/24 15:00 23:00 07:00 Intake Total 230 ml 0 ml 0 ml Output Total 200 ml 850 ml 0 ml Balance 30 ml -850 ml 0 ml medications Current Medications Medications Dose Ordered Sig/Zohreh Route Start Time Stop Time Status Last Admin Dose Admin Piperacillin Sod/ Tazobactam Sod 100 ml @ 25 mls/hr Q6HR IV 08/06/24 00:00 08/07/24 12:33 25 MLS/HR Acetaminophen 650 mg Q4HP PRN PO 08/06/24 03:15 08/06/24 20:50 650 MG Morphine Sulfate 2 mg Q6HPRN PRN IV 08/06/24 03:15 Sennosides 8.6 mg HS PO 08/06/24 04:00 08/06/24 20:50 8.6 MG Atorvastatin Calcium 20 mg DAILY PO 08/07/24 10:00 08/07/24 10:22 20 MG Gabapentin 100 mg TID PO 08/06/24 22:00 08/06/24 20:50 100 MG Pantoprazole Sodium 40 mg DAILY PO 08/07/24 10:00 08/07/24 10:21 40 MG Tamsulosin HCl 0.4 mg QPM PO 08/07/24 18:00 Dextrose/Sodium Chloride 1,000 ml @ 75 mls/hr [id number] IV 08/06/24 18:00 08/06/24 21:04 75 MLS/HR laboratory and microbiology Laboratory Tests 08/07/24 05:28 Test 08/07/24 05:28 Range/Units Serum Glucose 76 74-106 mg/dL Microbiology Date/Time Source Procedure Growth Status 08/06/24 13:48 Nose MRSA Screen - Final Complete 08/06/24 11:30 Blood Blood Culture - Preliminary NO GROWTH AFTER 24 HOURS OF INCUBATION. Resulted 08/06/24 11:15 Voided Urine Urine Culture - Preliminary Resulted Problem List/Assessment/Plan Problem List/Assessment/Plan AFEBRILE VSS ABD SOFT NON TENDER CONSTIPATION RESOLVED BM + LFT WNL NO INDICATION FOR URGENT GB SURGERY CLOSE OBSERVATION ADVANCE DIET JACOB NURSE AND FAMILY AT BEDSIDE Plan discussed with: Patient CLAUDE RUIZ MD Aug 07, 2024 18:21
[2024-08-07] MEDS: TAMSULOSIN HYDROCHLORIDE 0.4 MG CAP PO SCH (18:43)
[2024-08-07] MEDS: GABAPENTIN 100 MG CAP PO SCH (21:32)
[2024-08-08 01:00] VITALS: BP 130/50; PULSE 82; RESP 18; TEMP 98.4; O2SAT 92
[2024-08-08 05:00] VITALS: BP 149/74; PULSE 68; RESP 18; TEMP 98.2; O2SAT 95
[2024-08-08 07:05] LABS: Basophils # (auto) 0 10 ^3/uL (0-0.2); Basophils % (auto) 0.7 % (0.0-2.0); Eosinophils # (auto) 0.2 10 ^3/uL (0-0.8); Eosinophils % (auto) 3.6 % (0.0-7.0); Hematocrit 34.5 % (41.0-53.0); Hemoglobin 11.5 g/dL (13.5-17.5); Lymphocytes # (auto) 1.3 10 ^3/uL (0.4-5.4); Lymphocytes % (auto) 22.3 % (10.0-50.0); Mean Corpuscular Hemoglobin 29.4 pg (28.0-32.0); Mean Corpuscular Hgb Conc. 33.2 g/dL (32.0-36.0); Mean Corpuscular Volume 88.5 fL (80.0-100.0); Monocytes # (auto) 0.5 10 ^3/uL (0-1.3); Monocytes % (auto) 8.4 % (0.0-12.0); Neutrophils # (auto) 3.8 10 ^3/uL (1.6-8.6); Nucleated Red Blood Cells % 0.1 %; Platelet Count (auto) 277 10^3/uL (140-450); Red Blood Cells 3.91 10^6/uL (4.5-5.90); Red Cell Distribution Width 14.9 % (11.8-14.3); White Blood Cell 5.8 10^3/uL (4.4-10.8)
[2024-08-08 07:39] LABS: Alkaline Phosphatase 80 U/L (46-116); Anion Gap 12 (5-15); BUN/Creatinine Ratio 15.8 (10.0-20.0); Blood Urea Nitrogen 12 mg/dL (9-23); Calcium 9.3 mg/dL (8.7-10.4); Carbon Dioxide 22 mmol/L (20-31); Chloride 106 mmol/L (98-107); Glucose 78 mg/dL (74-106); Sodium 140 mmol/L (136-145); Total Protein 6.7 g/dL (5.7-8.2)
[2024-08-08 07:40] LABS: Albumin 3.7 g/dL (3.2-4.8); Aspartate Aminotransferase 24 U/L (13-40); Bilirubin, Total 0.9 mg/dL (0.2-1.0)
[2024-08-08 07:42] LABS: Alanine Aminotransferase 42 U/L (7-40); Potassium 3.3 mmol/L (3.5-5.1)
[2024-08-08 09:00] VITALS: BP 131/63; PULSE 64; RESP 16; TEMP 97.4; O2SAT 96
--- NOTE | 2024-08-08 11:16 | DVHPN2 ---
Progress Note Date Seen: Aug 08, 2024 Medical Necessity Reason Pt with a Central, PICC or Fol: No Objective vital signs Vital Sign Date Time Temp Pulse Resp B/P (MAP) Pulse Ox O2 Delivery O2 Flow Rate FiO2 08/08/24 09:00 97.4 64 16 131/63 (85) 96 97.4 08/08/24 08:00 Room Air* 0 21 Total Intake and Output 08/07/24 08/07/24 08/08/24 15:00 23:00 07:00 Intake Total 100 ml 200 ml 200 ml Output Total 800 ml 500 ml Balance 100 ml -600 ml -300 ml medications Current Medications Medications Dose Ordered Sig/Zohreh Route Start Time Stop Time Status Last Admin Dose Admin Piperacillin Sod/ Tazobactam Sod 100 ml @ 25 mls/hr Q6HR IV 08/06/24 00:00 08/08/24 05:41 25 MLS/HR Acetaminophen 650 mg Q4HP PRN PO 08/06/24 03:15 08/08/24 04:30 650 MG Morphine Sulfate 2 mg Q6HPRN PRN IV 08/06/24 03:15 Sennosides 8.6 mg HS PO 08/06/24 04:00 08/07/24 21:32 8.6 MG Atorvastatin Calcium 20 mg DAILY PO 08/07/24 10:00 08/08/24 09:46 20 MG Pantoprazole Sodium 40 mg DAILY PO 08/07/24 10:00 08/08/24 09:46 40 MG Tamsulosin HCl 0.4 mg QPM PO 08/07/24 18:00 08/07/24 18:43 0.4 MG Dextrose/Sodium Chloride 1,000 ml @ 75 mls/hr [id number] IV 08/06/24 18:00 08/08/24 09:49 75 MLS/HR Gabapentin 100 mg TID PO 08/07/24 22:00 08/08/24 05:38 100 MG laboratory and microbiology Laboratory Tests 08/08/24 06:27 Test 08/08/24 06:27 Range/Units Serum Glucose 78 74-106 mg/dL Microbiology Date/Time Source Procedure Growth Status 08/06/24 13:48 Nose MRSA Screen - Final Complete 08/06/24 11:30 Blood Blood Culture - Preliminary NO GROWTH AFTER 24 HOURS OF INCUBATION. Resulted 08/06/24 11:15 Voided Urine Urine Culture - Preliminary Resulted Problem List/Assessment/Plan Problem List/Assessment/Plan AFEBRILE VSS ABD SOFT NON TENDER CONSTIPATION RESOLVED BM + LFT WNL NO INDICATION FOR URGENT GB SURGERY CONSIDER HIDA SCAN INDICATED CLOSE OBSERVATION ADVANCE DIET JACOB NURSE AND FAMILY AT BEDSIDE Plan discussed with: Patient My Orders My Orders Orders - CLAUDE RUIZ MD Procedure Category Date Status Time Clear Liq Diet DIET 08/07/24 Transmitted Dinner CLAUDE RUIZ MD Aug 08, 2024 11:16
--- NOTE | 2024-08-08 11:21 | DVHPNRES ---
Progress Note Date Seen: Aug 08, 2024 Resident Creating Document: SANTA FERNANDEZ RESIDENT Medical Necessity Reason Pt with a Central, PICC or Fol: No Subjective Review of Systems Patient is a 84-year-old male with past medical history of BPH s/p TRUS, urinary retention, peripheral neuropathy, scoliosis, chronic atrial fibrillation, came in due to abdominal pain. Patient is AO x4, however, a poor historian who does not talk much and is currently somnolent. Per patient, he has been having right-sided abdominal pain for the past 1 week, at onset it was 10/10, however, currently he rates the pain as 2/10. Patient notes he had last bowel movement yesterday which was small in volume. CT abdomen pelvis showed early infiltrate in lung bases, abnormal appearing gallbladder suggesting cholecystitis, follow up HIDA scan suggested. Large stool burden may be constipated, compression fracture of the thoracolumbar spine at 2 levels. Past surgical history: TRUS, appendectomy, back surgery Home medications: Atorvastatin, gabapentin, hydrochlorothiazide, Dilaudid, losartan, magnesium oxide, methocarbamol, quetiapine, tamsulosin, Protonix Past Hospitalization: 04/16/2024 for hematuria at the [facility] [place] Social & Personal history: Patient lives with his . Denies using tobacco, alcohol, drugs. Allergies: Patient seen and examined at bedside. Patient is alert and oriented to time, place person, however, not responding to most questions. Reports improved abdominal pain today only present on palpation. Objective vital signs Vital Sign Date Time Temp Pulse Resp B/P (MAP) Pulse Ox O2 Delivery O2 Flow Rate FiO2 08/08/24 09:00 97.4 64 16 131/63 (85) 96 97.4 08/08/24 08:00 Room Air* 0 21 Total Intake and Output 08/07/24 08/07/24 08/08/24 15:00 23:00 07:00 Intake Total 100 ml 200 ml 200 ml Output Total 800 ml 500 ml Balance 100 ml -600 ml -300 ml medications Current Medications Medications Dose Ordered Sig/Zohreh Route Start Time Stop Time Status Last Admin Dose Admin Piperacillin Sod/ Tazobactam Sod 100 ml @ 25 mls/hr Q6HR IV 08/06/24 00:00 08/08/24 05:41 25 MLS/HR Acetaminophen 650 mg Q4HP PRN PO 08/06/24 03:15 3/2/25 04:30 650 MG Morphine Sulfate 2 mg Q6HPRN PRN IV 08/06/24 03:15 Sennosides 8.6 mg HS PO 08/06/24 04:00 08/07/24 21:32 8.6 MG Atorvastatin Calcium 20 mg DAILY PO 08/07/24 10:00 08/08/24 09:46 20 MG Pantoprazole Sodium 40 mg DAILY PO 08/07/24 10:00 08/08/24 09:46 40 MG Tamsulosin HCl 0.4 mg QPM PO 08/07/24 18:00 08/07/24 18:43 0.4 MG Dextrose/Sodium Chloride 1,000 ml @ 75 mls/hr [id number] IV 08/06/24 18:00 08/08/24 09:49 75 MLS/HR Gabapentin 100 mg TID PO 08/07/24 22:00 08/08/24 05:38 100 MG Examination General Appearance: Drowsy. Masked facies? Well developed. Well nourished. NAD Head Exam: Normal inspection Neck Exam: Normal inspection. Non-tender. Normal alignment Pulmonary/Respiratory: Chest non-tender. Clear bilateral breath sounds, no crackles, no wheezing. Cardiovascular/Chest: Regular rate and rhythm. No murmurs. No JVD. Peripheral Pulses: 2+ Radial (R). 2+ Radial (L). 2+ Pedal (R). 2+ Pedal (L) Abdominal Exam: Normal bowel sounds. Soft. Right upper quadrant tenderness to palpation, positive Wilson's sign, no visible veins. No hepatospenomegaly. No masses Ankle Exam: Negative ankle edema Lower extremities: Negative lower extremity edema Neuro/Mental Status: A&O x4. Coherent. Thoughts/Psych: Normal thought pattern. Appropriate mood and affect. Good judgement and insight Skin Exam: Normal inspection. Normal color. Warm. Dry laboratory and microbiology Laboratory Tests 08/08/24 06:27 Test 08/08/24 06:27 Range/Units Serum Glucose 78 74-106 mg/dL Microbiology Date/Time Source Procedure Growth Status 08/06/24 13:48 Nose MRSA Screen - Final Complete 08/06/24 11:30 Blood Blood Culture - Preliminary NO GROWTH AFTER 24 HOURS OF INCUBATION. Resulted 08/06/24 11:15 Voided Urine Urine Culture - Preliminary Resulted Labs and/or images reviewed: Labs reviewed by me, Image(s) reviewed by me Problem List/Assessment/Plan Problem List/Assessment/Plan Acute cholecystitis Possible UTI - CT abdomen pelvis: Findings in the lung bases suggest either early infiltrates or changes. Patient has an abnormal appearing gallbladder suggesting cholecystitis. Follow-up HIDA scan is suggested. Patient has a large stool burden may be constipated dizziness compression fractures of the thoracolumbar spine at 2 levels. - gallbladder ultrasound: Extremely limited examination - CXR: No acute cardiopulmonary process - surgery consulted: Continue close observation, no indication for acute surgery at the moment. - ordered HIDA scan - IV D5 with NS at 75 cc/hour - IV Zosyn - UA shows 3+ leukocyte esterase, 246 WBCs - blood and urine culture negative Type 2 diabetes Hypertension Dyslipidemia - atorvastatin 20 mg - currently holding home antihypertensives as blood pressure running soft Peripheral neuropathy Chronic pain likely due to compression fractures Questionable Parkinson's disease? - outpatient follow up recommended - resumed home medication gabapentin Slow transit constipation - senna once - MiraLax once History of BPH - resume home medication tamsulosin Paroxysmal atrial fibrillation (chads Vasc 3 /has bled 1) not anticoagulated Ordered EKG. On physical exam patient has regular S1 and S2, does not impress as AFib. PUD prophylaxis: protonix 40mg Goals of care: Full code, discussed for >16 minutes on 08/06/2024 Plan discussed with patient Plan discussed with Dr. Hobbs Plan discussed with: Patient, Other (RN) My Orders My Orders Orders - SANTA FERNANDEZ Procedure Category Date Status Time Gabapentin Capsule PHA 08/07/24 In Process (Neurontin Capsule) 22:00 SANTA FERNANDEZ Aug 08, 2024 11:21
[2024-08-08 13:00] VITALS: BP 137/68; PULSE 56; RESP 16; TEMP 97.4; O2SAT 97
[2024-08-08] MEDS ORDERED: METR-344 PO (13:43)
[2024-08-08] MEDS ORDERED: CEFD300C2 PO (13:43)
[2024-08-08] MEDS ORDERED: LEVO750T40 PO (13:43)
--- NOTE | 2024-08-08 13:48 | DVHDSRES ---
Discharge Summary Date of Admission Resident Creating Document: SANTA FERNANDEZ RESIDENT Aug 05, 2024 at 21:41 Date of Discharge: Aug 08, 2024 Admitting Diagnosis Acute intractable abdominal pain Labs/Diagnostic Data: Laboratory Results Test 08/08/24 06:27 08/06/24 13:20 08/06/24 11:15 08/05/24 14:53 White Blood Count 5.8 10^3/uL (4.4-10.8) Red Blood Count 3.91 10^6/uL (4.5-5.90) Hemoglobin 11.5 g/dL (13.5-17.5) Hematocrit 34.5 % (41.0-53.0) Mean Corpuscular Volume 88.5 fL (80.0-100.0) Mean Corpuscular Hemoglobin 29.4 pg (28.0-32.0) Mean Corpuscular Hemoglobin Concent 33.2 g/dL (32.0-36.0) Red Cell Distribution Width 14.9 % (11.8-14.3) Platelet Count 277 10^3/uL (140-450) Mean Platelet Volume 7.8 fL (6.9-10.8) Neutrophils (%) (Auto) 65.0 % (37.0-80.0) Lymphocytes (%) (Auto) 22.3 % (10.0-50.0) Monocytes (%) (Auto) 8.4 % (0.0-12.0) Eosinophils (%) (Auto) 3.6 % (0.0-7.0) Basophils (%) (Auto) 0.7 % (0.0-2.0) Neutrophils # (Auto) 3.8 10 ^3/uL (1.6-8.6) Lymphocytes # (Auto) 1.3 10 ^3/uL (0.4-5.4) Monocytes # (Auto) 0.5 10 ^3/uL (0-1.3) Eosinophils # (Auto) 0.2 10 ^3/uL (0-0.8) Basophils # (Auto) 0 10 ^3/uL (0-0.2) Nucleated Red Blood Cells 0.1 % Sodium Level 140 mmol/L (136-145) Potassium Level 3.3 mmol/L (3.5-5.1) Chloride Level 106 mmol/L (98-107) Carbon Dioxide Level 22 mmol/L (20-31) Anion Gap 12 (5-15) Blood Urea Nitrogen 12 mg/dL (9-23) Creatinine 0.76 mg/dL (0.700-1.30) Glomerular Filtration Rate Calc 89 mL/min (>90) BUN/Creatinine Ratio 15.8 (10.0-20.0) Serum Glucose 78 mg/dL (74-106) Calcium Level 9.3 mg/dL (8.7-10.4) Total Bilirubin 0.9 mg/dL (0.2-1.0) Aspartate Amino Transferase (AST) 24 U/L (13-40) Alanine Aminotransferase (ALT) 42 U/L (7-40) Alkaline Phosphatase 80 U/L (46-116) Total Protein 6.7 g/dL (5.7-8.2) Albumin 3.7 g/dL (3.2-4.8) Influenza Type A Antigen Negative (Negative) Influenza Type B Antigen Negative (Negative) SARS-CoV-2 Antigen (Rapid) Negative (NEGATIVE) Urine Color Light-yellow (Yellow) Urine Clarity Turbid (Clear) Urine pH 7.0 (5.0-9.0) Urine Specific Hugo 1.019 (1.001-1.035) Urine Protein Trace (Negative) Urine Ketones Negative (Negative) Urine Blood Negative /uL (Negative) Urine Nitrite Negative (Negative) Urine Bilirubin Negative (Negative) Urine Urobilinogen Normal mg/dL (Negative) Urine Leukocyte Esterase 3+ /uL (Negative) Urine RBC 7 /hpf (0 - 3) Urine Microscopic WBC 246 /HPF (0-3) Urine Squamous Epithelial Cells Few /hpf (<5) Urine Bacteria None seen /hpf (None Seen) Urine Mucus Few (None Seen) Urine Glucose Normal mg/dL (Normal) Urine Opiates Screen Neg (NEGATIVE) Urine Fentanyl Screen Neg (NEGATIVE) Urine Barbiturates Screen Neg (NEGATIVE) Urine Phencyclidine Screen Neg (NEGATIVE) Urine Amphetamines Screen Neg (NEGATIVE) Urine Benzodiazepines Screen Neg (NEGATIVE) Urine Cocaine Screen Neg (NEGATIVE) Urine Cannabinoids Screen Neg (NEGATIVE) Hemoglobin A1c 5.3 % A1C (<5.7) Triglycerides Level 46 mg/dL (< 150) Cholesterol Level 155 mg/dL (< 200) LDL Cholesterol 71 mg/dL (< 100) HDL Cholesterol 67 mg/dL (40-59) Lipase 34 U/L (12-53) Thyroid Stimulating Hormone (TSH) 0.97 uIU/mL (0.55-4.78) Other Laboratory Tests 08/08/24 06:27 Brief Hx & Hospital Course: Patient is a 84-year-old male with past medical history of BPH s/p TRUS, urinary retention, peripheral neuropathy, scoliosis, chronic atrial fibrillation, came in due to abdominal pain. Patient is AO x4, however, a poor historian who does not talk much and is currently somnolent. Per patient, he has been having right-sided abdominal pain for the past 1 week, at onset it was 10/10, however, currently he rates the pain as 2/10. Patient notes he had last bowel movement yesterday which was small in volume. CT abdomen pelvis showed early infiltrate in lung bases, abnormal appearing gallbladder suggesting cholecystitis, follow up HIDA scan suggested. Large stool burden may be constipated, compression fracture of the thoracolumbar spine at 2 levels. Hospital course: Gallbladder ultrasound was extremely limited, chest x-ray showed no cardio pulmonary process. Surgery was consulted and they recommended continuing close observation as no indication for acute surgery present at the moment. Patient was continued on IV D5 with NS at 75 cc/hour and placed on NPO, on the 2nd day of hospitalization patient was advanced to a clear liquid diet. UA showed 3+ leukocyte esterase and 246 WBCs, however, blood and urine cultures were negative. Patient was also continued on IV Zosyn. Home medication atorvastatin and gabapentin was continued, however, antihypertensives were held as blood pressure running soft. For constipation patient was treated with senna and MiraLax which resulted in a bowel movement that also relieved patient's abdominal pain. Home medication tamsulosin was also continued for the patient. On the day of discharge, patient appeared well and had stable vital signs, abdominal pain had completely resolved with only residual mild tenderness to palpation, details of hospitalization were discussed with the patient in detail with sister and [id number] at bedside were all questions were answered and concerns were addressed. His hospital course was uncomplicated. Patient was instructed to follow up with surgery in the outpatient clinic as well as Neurology and his PCP at his earliest convenience. Patient was discharged home with cefdinir, metronidazole and levofloxacin for 4 days. General Appearance: Masked facies? Well developed. Well nourished. NAD Head Exam: Normal inspection Neck Exam: Normal inspection. Non-tender. Normal alignment Pulmonary/Respiratory: Chest non-tender. Clear bilateral breath sounds, no crackles, no wheezing. Cardiovascular/Chest: Regular rate and rhythm. No murmurs. No JVD. Peripheral Pulses: 2+ Radial (R). 2+ Radial (L). 2+ Pedal (R). 2+ Pedal (L) Abdominal Exam: Normal bowel sounds. Soft. Generalized abdominal tenderness to palpation mild, no visible veins. No hepatospenomegaly. No masses Ankle Exam: Negative ankle edema Lower extremities: Negative lower extremity edema Neuro/Mental Status: A&O x4. Coherent. Thoughts/Psych: Normal thought pattern. Appropriate mood and affect. Good judgement and insight Skin Exam: Normal inspection. Normal color. Warm. Dry Consults/Reason for consult Surgery: Acute cholecystitis Condition at Discharge: Fair Final Diagnosis/Problems List Acute cholecystitis Possible UTI Type 2 diabetes Hypertension Dyslipidemia Peripheral neuropathy Chronic pain likely due to compression fractures Questionable Parkinson's disease? Slow transit constipation Hx of BPH Paroxysmal atrial fibrillation not anticoagulated Discharge Disposition: Hospice - Home Discharge Instruct/Medications Diet: See Comment Diet comment: Continue a full liquid diet for another few days, advance diet as tolerated Activity: No Restrictions, As Tolerated Follow Up/Referral: Please follow up with surgery in the outpatient clinic in 1 week Please follow up with Neurology in the outpatient clinic in 1-2 weeks Please follow up with PCP in 1-2 weeks Please follow up in the discharge clinic Medications: Cefdinir 300 mg 2 times a day for 4 days Levofloxacin 750 mg once daily for 4 days Metronidazole 3 times a day for 4 days Discharge Statement: "Patient was advised to return to the ER or call 911 if any headaches, dizziness, shortness of breath, chest pain, abdominal pain, bleeding, fevers, or worsening of medical condition. Patient was counseled about treatment plan, medications, possible side effects, patientverbalized understanding. All questions were answered to the best of my ability. This discharge took greater then 30 minutes in planning, reviewing documentation, counseling the patient, and discussing with other team members." ASSESSMENT ASSESSMENT Assessment Acute cholecystitis Possible UTI Type 2 diabetes Hypertension Dyslipidemia Peripheral neuropathy Chronic pain likely due to compression fractures Questionable Parkinson's disease? Slow transit constipation Drip BPH Paroxysmal atrial fibrillation not anticoagulated Date of Service: Aug 08, 2024 Billing Provider: KARTIK WALL MD Common Visit Codes: 67505-TJV/OBS DISCH DAY >30min SANTA FERNANDEZ RESIDENT Aug 08, 2024 13:48 KARTIK WALL MD Aug 10, 2024 16:15
[2024-08-08] MEDS ORDERED: MUPI2CRE17 EX (13:57)
[2024-08-08 13:59] VITALS: BP 146/92; TEMP 36.3
== END 2024-08-08 14:45 | disposition home or self-care (01) | DRG 872 ==
LOC: EDBD 14:29 → ER 14:38 → OVERFLOW 21:41 → EAST 21:42
PROVIDERS: ADMIT Student in an Organized Health Care Education/Training Program; ATTEND Student in an Organized Health Care Education/Training Program
DX: A41.9 Sepsis, unspecified organism (principal); N39.0 Urinary tract infection, site not specified; K81.0 Acute cholecystitis; M48.55XA Collapsed vertebra, not elsewhere classified, thoracolumbar region, initial encounter for fracture; K59.00 Constipation, unspecified; Z20.822 Contact with and (suspected) exposure to COVID-19; I16.0 Hypertensive urgency; E78.5 Hyperlipidemia, unspecified; G20.A1 Parkinson's disease without dyskinesia, without mention of fluctuations; N40.0 Benign prostatic hyperplasia without lower urinary tract symptoms; R91.8 Other nonspecific abnormal finding of lung field; E11.42 Type 2 diabetes mellitus with diabetic polyneuropathy; G89.29 Other chronic pain; I48.0 Paroxysmal atrial fibrillation; Z90.79 Acquired absence of other genital organ(s); Z79.4 Long term (current) use of insulin; Z79.899 Other long term (current) drug therapy
CPT/HCPCS: 36415; 71045; 74177; 76705; 80048; 80053; 80061; 80307; 81001; 83036; 83690; 84443; 85025; 87040; 87081; 87086; 87426; 87804; 93306; 96374; 96375; G0378; J2405; J2543

== ENCOUNTER 2025-03-23 14:52 | Inpatient (IN) | payer OTHER, MEDICARE, MEDICAID ==
[~2025-03-23] VITALS: Ht 175.3 cm; Wt 73.4 kg
[~2025-03-23 14:52] MED LIST changes: +CEFD300C2 PO; +LEVO750T40 PO; +METR-344 PO; +MUPI2CRE17 EX
[2025-03-23 16:23] VITALS: PULSE 67; RESP 19; O2SAT 98
--- NOTE | 2025-03-23 16:32 | ED.PDOC ---
History of Present Illness HPI Comments 85-year-old male brought by paramedics because he has been having rectal pain for the past two days. First started with the constipation later diarrhea which started this morning. Patient does have history of multiple sclerosis prostate hypertrophy. Unable to answer questions appropriately. As per family he has baseline. He has not had any altered level of consciousness. Denies any other symptoms. Chief Complaint: Rectal Pain Time Seen by MD: 15:08 Primary Care Provider: OTIS Reviewed Notes: Nurses Notes, Medications, Allergies Allergies: Coded Allergies: NO KNOWN ALLERGIES (Unverified , 03/03/16) Home Meds Active Scripts Mupirocin Calcium (Topical) (MUPIROCIN) 2 % Cre, 2 % EX BID for 6 Days, #1 CRE Applied to each nostril twice a day for 6 days Prov:SANTA FERANNDEZ RESIDENT 08/08/24 Metronidazole (Flagyl) 500 Mg Tab, 1 TAB PO TID for 4 Days, #12 TAB Prov:SANTA FERNANDEZ [facility] 08/08/24 Levofloxacin Hemihydrate (LEVOFLOXACIN) 750 Mg Tab, 1 TAB PO DAILY for 4 Days, #4 TAB Prov:SANTA FERNANDEZ [facility] 08/08/24 Cefdinir (Cefdinir) 300 Mg Cap, 1 CAP PO BID for 4 Days, #14 CAP Prov:SANTA FERNANDEZ [facility] 08/08/24 Docusate Sodium (Colace) 100 Mg Cap, 1 CAP PO BID, #30 CAP Prov:KELSEY ROSE NP 03/26/24 Methocarbamol (Methocarbamol) 750 Mg Tab, 750 MG PO TID, #30 TAB Prov:JAMIL ARNETT MD 02/06/22 Gabapentin (Gabapentin) 300 Mg Cap, 1 CAP PO TID for 30 Days, #90 CAP 5 Refills Prov:YESSI LEON MD 01/05/22 Folic Gjtl-Hrmimfkjhh-Shdwerof (Folbic) Tab, 1 TAB PO DAILY, #90 TAB 3 Refills Prov:YESSI LEON MD 01/05/22 Reported Medications Quetiapine Fumerate (Seroquel) 50 Mg Tab, 25 MG PO DAILY, TAB 03/24/24 Tamsulosin Hcl (Tamsulosin Hcl) 0.4 Mg Cap, 0.4 NG PO DAILY 03/24/24 Multiple Vitamin (Multivitamins) Cap, 1 CAP PO DAILY, CAP 12/04/20 Pantoprazole Sodium Sesquihydr (Protonix) 40 Mg Tab, 40 MG PO DAILY, #30 TAB 12/04/20 Magnesium Oxide (MAGNESIUM OXIDE) 400 Mg Tab, 400 MG PO DAILY, TAB 12/04/20 Hydrochlorothiazide (Hydrochlorothiazide) 25 Mg Tab, 25 MG PO DAILY, TAB 12/04/20 Atorvastatin Calcium (Lipitor) 20 Mg Tab, 20 MG PO DAILY, TAB 12/04/20 Losartan Potassium (Losartan Potassium) 50 Mg Tab, 50 MG PO DAILY, TAB 12/04/20 Information Source: Patient Mode of Arrival: EMS Severity: Moderate Timing: Days Duration: Since onset Past Medical History PAST MEDICAL HISTORY: High Lipids Surgical History: Appendectomy, Hernia Repair Family History Family History: Reviewed,noncontributory to illness Social History Smoker: Non-Smoker Alcohol: Denies ETOH Use Drugs: Denies Drug Use Lives In: Home Constitutional: denies: chills, diaphoresis, fatigue, fever, malaise, sweats, weakness, others EENTM: denies: blurred vision, double vision, ear bleeding, ear discharge, ear drainage, ear pain, ear ringing, eye pain, eye redness, hearing loss, mouth pain, mouth swelling, nasal discharge, nose bleeding, nose congestion, nose pain, photophobia, tearing, throat pain, throat swelling, voice changes, others Respiratory: denies: cough, hemoptysis, orthopnea, SOB at rest, shortness of breath, SOB with excertion, stridor, wheezing, others Cardiovascular: denies: chest pain, dizzy spells, diaphoresis, Dyspnea on exertion, edema, irregular heart beat, left arm pain, lightheadedness, palpitations, PND, syncope, others Gastrointestinal: reports: constipated, diarrhea, rectal pain; denies: abdomen distended, abdominal pain, blood streaked bowels, dysphagia, difficulty swallowing, hematemesis, melena, nausea, poor appetite, poor fluid intake, rectal bleeding, vomiting, others Genitourinary: denies: burning, dysuria, flank pain, frequency, hematuria, incontinence, penile discharge, penile sore, pain, testicle pain, testicle swelling, urgency, others Neurological: denies: dizziness, fainting, headache, left sided numbness, left sided weakness, numbness, paresthesia, pre-existing deficit, right sided numbness, right sided weakness, seizure, speech problems, tingling, tremors, weakness, others Musculoskeletal: denies: back pain, gout, joint pain, joint swelling, muscle pain, muscle stiffness, neck pain, others Integumetry: denies: bruises, change in color, change in hair/nails, dryness, laceration, lesions, lumps, rash, wounds, others Allergic/Immunocompromised: denies: Difficulty Healing, Frequent Infections, Hives, Itching, others Hematologic/Lymphatic: denies: anemia, blood clots, easy bleeding, easy bruising, swollen glands, others Endocrine: denies: excessive hunger, excessive sweating, excessive thirst, excessive urination, flushing, intolerance to cold, intolerance to heat, unexplained weight gain, unexplained weight loss, others Psychiatric: denies: anxiety, bipolar disorder, depression, hopeless, panic disorder, schizophrenia, sleepless, suicidal, others Physical Exam General Appearance: Moderate Distress HEENT: Normal ENT Inspection, Pharynx Normal, TMs Normal Neck: Full Range of Motion, Non-Tender, Normal, Normal Inspection Respiratory: Chest Non-Tender, Lungs Clear, No Accessory Muscle Use, No Respiratory Distress, Normal Breath Sounds Cardiovascular: No Edema, No JVD, No Murmur, No Gallop, Normal Peripheral Pulses, Regular Rate/Rhythm Breast Exam: Deferred Gastrointestinal: No Organomegaly, Non Tender, No Pulsatile Mass, Normal Bowel Sounds, Soft Genitalia: Deferred Pelvic: Deferred Rectal: Deferred Extremities: No calf tenderness, Normal capillary refill, Normal inspection, Normal range of motion, Non-tender, No pedal edema Musculoskeletal : Apperance: Normal Neurologic: Alert, mingle operator II-XII nml as Tested, No Motor Deficits, Normal Affect, Normal Mood, No Sensory Deficits Cerebellar Function: NOT DONE Reflexes: NOT DONE Skin: Dry, Normal Color, Warm Peripheral Pulses: 3+ Radial (R), 3+ Radial (L) Lymphatic: No Adenopathy Was a procedure done? Was a procedure done?: No Differential Dx Considerations may include: Prostate hypertrophy Electrolyte imbalance X-Ray, Labs, Meds, VS Vital Signs Date Time Temp Pulse Resp B/P (MAP) Pulse Ox O2 Delivery O2 Flow Rate FiO2 03/23/25 16:23 98.9 62 19 140/74 (96) 96 98.9 03/23/25 15:12 98.1 72 16 132/71 95 98.1 Patient appropriate. Moving all extremities. Vitals stable. Answering questions. Has rectal pain. Possibly will need colonoscopy. Establish intravenous access. Was given fluids. GI consultation. Continue monitoring. Time of 1ST Reevaluation: 16:30 Reevaluation 1ST: Unchanged Patient Education/Counseling: Diagnosis, Treatment, Prognosis Family Education/Counseling: No Family Present SEPSIS Sepsis Screen Date sepsis recognized/suspect: Mar 23, 2025 Time Sepsis recognized/suspect: 1454 Recent Procedure: No On Antibiotic Therapy: No Respiratory Rate >20: No Heart Rate >90: No Temp<36 C (96.8 F) or >38.3 C: No SBP <90 or MAP <65 mmHG: No New Acute Mental Status Change: No Is the patient on CPAP, BIPAP,: No Physician Orders Troponin-I Hs (03/23/25 18:00) Troponin-I Hs (03/24/25 00:00) Troponin-I Hs (03/24/25 03:00) Complete Blood Count (03/23/25 15:14) Urinalysis (03/23/25 15:14) Basic Metabolic Panel (03/23/25 15:14) Ct Ab Pel Wo Con-No Oral Or Iv (03/23/25 16:27) Vital Signs Date Time Temp Pulse Resp B/P (MAP) Pulse Ox O2 Delivery O2 Flow Rate FiO2 03/23/25 16:23 98.9 62 19 140/74 (96) 96 98.9 03/23/25 15:12 98.1 72 16 132/71 95 98.1 Departure 1 Departure Time of Disposition: 16:31 Impression: Primary Impression: Gastroenteritis Additional Impression: BPH (benign prostatic hyperplasia) Qualified Codes: N40.0 - Benign prostatic hyperplasia without lower urinary tract symptoms Disposition: ADMITTED INPATIENT Admit to: Med Surg Condition: Guarded Critical Care Note Critical Care Time?: No Stability Stability form required: No Heart Score Heart Score: Heart Score Response (Comments) Value History Slightly Suspicious 0 EKG Normal 0 Age >65 2 Risk Factors >3 or Hx ASHD 2 Troponin Normal limit 0 Total 4 NONI ROUSSEAU MD Mar 23, 2025 16:31
[2025-03-23 16:48] LABS: Hematocrit 38.1 % (41.0-53.0); Hemoglobin 13.3 g/dL (13.5-17.5); Mean Corpuscular Hemoglobin 31.7 pg (28.0-32.0); Mean Corpuscular Volume 91.2 fL (80.0-100.0); Nucleated Red Blood Cells % 0.1 %
[2025-03-23 16:56] LABS: Anion Gap 9 (5-15); Carbon Dioxide 28 mmol/L (20-31); Chloride 104 mmol/L (98-107); Potassium 4.1 mmol/L (3.5-5.1); Sodium 141 mmol/L (136-145)
[2025-03-23 16:58] LABS: Calcium 9.4 mg/dL (8.7-10.4)
[2025-03-23 17:02] LABS: BUN/Creatinine Ratio 15.5 (10.0-20.0); Blood Urea Nitrogen 13 mg/dL (9-23); Glucose 88 mg/dL (74-106)
--- NOTE | 2025-03-23 17:26 | DVH ---
Exam: CT CT AB PEL WO CON-NO ORAL OR IV History: rectalpain Comparison Study: CT CT AB PEL WO CON-NO ORAL OR IV on DOS: 03/24/24 TECHNIQUE: Multidetector CT of the abdomen AND PELVIS without IV contrast. Axial, coronal and sagitta l multiplanar reformats were obtained from the axial data set by the technologist. Radiation Dose Information: CT Dose: CTDI volume is 17.1 mGy. Dose-length product is 850.8 mGy*cm FINDINGS: Zjev-rsecugo-kmsm-right basilar ground-glass opacities. Partially visualized heart is unremarkable. Subcentimeter hypodense hepatic lesion that is too small to characterize. Otherwise, liver, spleen, pancreas and adrenal glands are unremarkable. The gallbladder is unremarkable. Multiple bilateral renal parapelvic cysts. No hydro nephrosis or renal calculi bilaterally. Bilateral ureters and urinary bladder are unremarkable. Prostate is heterogeneous and enlarged measuring up to 5.2 x 6 x 5.8 cm. Stomach is unremarkable. Small bowel loops unremarkable. Appendix is not definitely visualized. Dive rticulosis without diverticulitis. Large amount of fecal material within the rectum with moderate am ount of fecal material within the remainder of the colon. Distal rectal wall thickening. No evidence of intraperitoneal free air or free fluid. No evidence of aortic aneurysm. Mild atherosclerotic calcification of the aorta. No significant lymphadenopathy. Tiny fat containing umbilical hernia. Small fat containing supraumbilical hernia. Chronic appearing c ompression fracture of L2 with a Valsalva% loss of anterior vertebral body height relatively unchange d from prior imaging. Chronic compression fracture of T12 with about 40% loss of superior anterior ve rtebral body height. Diffuse demineralization. Inter spinous hardware of the lumbar spine. IMPRESSION: Constipation were rectal stercoral colitis. Bilateral renal parapelvic cysts. Enlarged prostate. Recommend correlation with PSA. Bibasilar atelectasis with possible Left basilar infectious/inflammatory process. Additional findings as above.
[2025-03-24] VITALS (7 sets, daily range): BP systolic 101–136; BP diastolic 49–86; PULSE 53–80; RESP 14–18; TEMP 97.4–98.4; O2SAT 95–97
--- NOTE | 2025-03-24 00:13 | DVHHP2 ---
History of Present Illness Reason for Visit: Rectal pain History of Present Illness 85-year-old male presents for evaluation of rectal pain. Patient endorses a seven week of constipation. He states that over the past three days he has been having diarrhea with associated rectal pain. Denies melena. No abdominal pain, nausea or vomiting. Past Medical History Dyslipidemia, hypertension Past Surgical History Denies Family History Noncontributory Smoke: No ALCOHOL: none Drugs: None Lives: with Family Review of Systems Review of Systems Review of systems are currently negative otherwise addressed in HPI. Allergies: Coded Allergies: NO KNOWN ALLERGIES (Unverified , 03/03/16) Exam Vital Signs Vital Signs Date Time Temp Pulse Resp B/P (MAP) Pulse Ox O2 Delivery O2 Flow Rate FiO2 03/23/25 22:00 65 17 139/74 (95) 96 03/23/25 16:23 98.9 98.9 03/23/25 16:23 Room Air* 0 21 Exam Gen: 85-year-old male in mild distress Skin: Warm, dry, normal color and texture, no rash. HEENT: Normocephalic atraumatic, mucous membranes moist and pink. Neck: Cervical and supraclavicular nodes normal without enlargement, trachea is midline, thyroid gland is normal without masses. Pulmonary: Clear to auscultation and percussion bilaterally. Cardiac: Regular rate and rhythm. No murmur Abdomen: Soft, nontender, nondistended, bowel sounds present all 4 quadrants, no guarding, no rigidity, no organomegaly. Extremities: No cyanosis, clubbing, no edema Neuro: Cranial nerves II through XII grossly intact, normal affect and speech, no focal motor deficits. Labs/Xrays ORDERING PHYSICIAN: NONI ROUSSEAU MD PROCEDURE(s): ABPL - CT AB PEL WO CON-NO ORAL OR IV REASON: rectalpain ORDER NUMBER(s): [id number], ACCESSION NUMBER(s): [id number] Exam: CT CT AB PEL WO CON-NO ORAL OR IV History: rectalpain Comparison Study: CT CT AB PEL WO CON-NO ORAL OR IV on DOS: 03/24/24 TECHNIQUE: Multidetector CT of the abdomen AND PELVIS without IV contrast. Axial, coronal and sagittal multiplanar reformats were obtained from the axial data set by the technologist. Radiation Dose Information: CT Dose: CTDI volume is 17.1 mGy. Dose-length product is 850.8 mGy*cm FINDINGS: Lbdz-tbpqhds-axou-right basilar ground-glass opacities. Partially visualized heart is unremarkable. Subcentimeter hypodense hepatic lesion that is too small to characterize. Otherwise, liver, spleen, pancreas and adrenal glands are unremarkable. The gallbladder is unremarkable. Multiple bilateral renal parapelvic cysts. No hydro nephrosis or renal calculi bilaterally. Bilateral ureters and urinary bladder are unremarkable. Prostate is heterogeneous and enlarged measuring up to 5.2 x 6 x 5.8 cm. Stomach is unremarkable. Small bowel loops unremarkable. Appendix is not defin itely visualized. Diverticulosis without diverticulitis. Large amount of fecal material within the rectum with moderate amount of fecal material within the remainder of the colon. Distal rectal wall thickening. No evidence of intraperitoneal free air or free fluid. No evidence of aortic aneurysm. Mild atherosclerotic calcification of the aorta. No significant lymphadenopathy. Tiny fat containing umbilical hernia. Small fat containing supraumbilical hernia. Chronic appearing compression fracture of L2 with a Valsalva% loss of anterior vertebral body height relatively unchanged from prior imaging. Chronic compression fracture of T12 with about 40% loss of superior anterior vertebral body height. Diffuse demineralization. Inter spinous hardware of the lumbar spine. IMPRESSION: Constipation were rectal stercoral colitis. Bilateral renal parapelvic cysts. Enlarged prostate. Recommend correlation with PSA. Bibasilar atelectasis with possible Left basilar infectious/inflammatory process. Additional findings as above. ATED BY: MAXINE ALMEIDA DO Labs Test 03/23/25 16:36 Range/Units White Blood Count 7.0 4.4-10.8 10^3/uL Red Blood Count 4.18 L 4.5-5.90 10^6/uL Hemoglobin 13.3 L 13.5-17.5 g/dL Hematocrit 38.1 L 41.0-53.0 % Mean Corpuscular Volume 91.2 80.0-100.0 fL Mean Corpuscular Hemoglobin 31.7 28.0-32.0 pg Mean Corpuscular Hemoglobin Concent 34.8 32.0-36.0 g/dL Red Cell Distribution Width 13.8 11.8-14.3 % Platelet Count 266 140-450 10^3/uL Mean Platelet Volume 7.7 6.9-10.8 fL Neutrophils (%) (Auto) 74.9 37.0-80.0 % Lymphocytes (%) (Auto) 16.2 10.0-50.0 % Monocytes (%) (Auto) 7.9 0.0-12.0 % Eosinophils (%) (Auto) 0.5 0.0-7.0 % Basophils (%) (Auto) 0.5 0.0-2.0 % Neutrophils # (Auto) 5.2 1.6-8.6 10 ^3/uL Lymphocytes # (Auto) 1.1 0.4-5.4 10 ^3/uL Monocytes # (Auto) 0.6 0-1.3 10 ^3/uL Eosinophils # (Auto) 0 0-0.8 10 ^3/uL Basophils # (Auto) 0 0-0.2 10 ^3/uL Nucleated Red Blood Cells 0.1 % Sodium Level 141 136-145 mmol/L Potassium Level 4.1 3.5-5.1 mmol/L Chloride Level 104 98-107 mmol/L Carbon Dioxide Level 28 20-31 mmol/L Anion Gap 9 5-15 Blood Urea Nitrogen 13 9-23 mg/dL Creatinine 0.84 0.700-1.30 mg/dL Glomerular Filtration Rate Calc 86 >90 mL/min BUN/Creatinine Ratio 15.5 10.0-20.0 Serum Glucose 88 74-106 mg/dL Calcium Level 9.4 8.7-10.4 mg/dL Troponin I High Sensitivity 17 </=54 ng/L SEPSIS Sepsis Screen Date sepsis recognized/suspect: Mar 23, 2025 Time Sepsis recognized/suspect: 1454 Recent Procedure: No On Antibiotic Therapy: No Respiratory Rate >20: No Heart Rate >90: No Temp<36 C (96.8 F) or >38.3 C: No SBP <90 or MAP <65 mmHG: No New Acute Mental Status Change: No Is the patient on CPAP, BIPAP,: No Physician Orders Ct Ab Pel Wo Con-No Oral Or Iv (03/23/25 16:27) Admit (03/23/25 19:56) Psa Total+% Free (03/23/25 19:56) Vital Signs Date Time Temp Pulse Resp B/P (MAP) Pulse Ox O2 Delivery O2 Flow Rate FiO2 03/23/25 22:00 65 17 139/74 (95) 96 03/23/25 20:00 64 17 113/61 (78) 97 03/23/25 18:00 64 13 147/66 (93) 97 03/23/25 16:23 98.9 62 19 140/74 (96) 96 98.9 03/23/25 16:23 67 19 98 Room Air* 0 21 Laboratory Tests Test 03/23/25 16:36 White Blood Count 7.0 10^3/uL (4.4-10.8) Assessment/Plan Assessment/Plan Assessment Rectal pain Stercoral colitis Hypertension Plan Admit the patient to [facility] to the hospitalist GI consult Flagyl Stool bacterial culture pending Pain management Continue treatment per orders. Plan discussed with: Patient My Orders Orders - KAREN ELDRIDGE Procedure Category Date Status Time Admit ADMIT 03/23/25 Transmitted 19:56 Psa Total+% Free LAB 03/23/25 In Process 19:56 Date of Service: Mar 23, 2025 Billing Provider: KAREN ELDRIDGE Common Visit Codes: [id number] INP/OBS CARE (MOD) KAREN ELDRIDGE Mar 24, 2025 00:13
[2025-03-24] MEDS ORDERED: ONDANSETRON HCL 4 MG/2 ML VIAL IV PRN (00:15)
[2025-03-24] MEDS: KETOROLAC TROMETH 30 MG/ML 1ML VIAL IV ONE (00:35)
[2025-03-24] MEDS: HYDROcodone-ACET 5/325MG TAB PO PRN (02:50)
[2025-03-24] MEDS: PANTOPRAZOLE 40 MG TAB PO SCH (05:09)
[2025-03-24] MEDS: LOSARTAN POTASSIUM 50 MG TAB PO SCH (10:25)
[2025-03-24] MEDS: POLYETHYLENE GLYCOL 17 GM PWDR PO ONE (14:13)
--- NOTE | 2025-03-24 14:15 | DVHPN2 ---
Reviewed: Care Plan, H&P, Labs, Medications, Previous Orders, Radiology Changes from previous H/P or p: No Changes Objective Vitals Vital Signs Date Time Temp Pulse Resp B/P (MAP) Pulse Ox O2 Delivery O2 Flow Rate FiO2 03/24/25 12:48 98.1 68 18 136/72 (93) 96 98.1 03/24/25 08:00 Room Air* 0 21 Intake/Output Intake and Output 03/24/25 07:00 Intake Total 200 ml Balance 200 ml Intake Oral 100 ml IV Total 100 ml # Voids 2 # Bowel Movements 1 Medications Current Medications Medications Dose Ordered Sig/Zohreh Route Start Time Stop Time Status Last Admin Dose Admin Metronidazole 100 ml @ 100 mls/hr Q8HR IV 03/24/25 06:00 03/24/25 14:12 100 MLS/HR Atorvastatin Calcium 20 mg HS PO 03/24/25 22:00 Pantoprazole Sodium 40 mg DAILY@0600 PO 03/24/25 06:00 03/24/25 05:09 40 MG Tamsulosin HCl 0.4 mg QPM PO 03/24/25 18:00 Losartan Potassium 50 mg DAILY PO 03/24/25 10:00 03/24/25 10:25 50 MG Acetaminophen/ Hydrocodone Bitart 1 tab Q4HP PRN PO 03/24/25 00:15 03/24/25 02:50 1 TAB Ondansetron HCl 4 mg Q4HP PRN IV 03/24/25 00:15 Acetaminophen 650 mg Q6HP PRN PO 03/24/25 00:15 Laboratory Results Laboratory Tests 03/23/25 16:36 Chemistry Test 03/23/25 16:36 Calcium Level 9.4 mg/dL (8.7-10.4) Microbiology Microbiology Date/Time Source Procedure Growth Status 03/24/25 02:45 Nose MRSA Screen - Final Complete Labs and/or images reviewed: Labs reviewed by me, Image(s) reviewed by me Assessment/Plan Assessment/Plan Rectal pain Stercoral colitis Hypertension Constipation: MiraLax: GI consult for Dr. Seven Valdez Patient is hospice revoked time spent 45 minutes Advanced care planning time 20 minutes Patient is full code Plan discussed with: Patient Date of Service: Mar 24, 2025 Billing Provider: JAMIL ARNETT MD Common Visit Codes: [id number] INP/OBS CARE(HIGH) Secondary Visit Codes: [id number] CARE PLAN 30 MINUTES JAMIL ARNETT MD Mar 24, 2025 14:15
--- NOTE | 2025-03-24 14:23 | DVHINCON2 ---
GI Consult Consult Note GI consult note Date of Consultation: 03/24/2025 Chief Complaint: Rectal pain, stercoral colitis Referring Physician: Cuco RUDD H&P: 85-year-old [place]alander-speaking male admitted with complains of rectal pain. Nanda SORIANO translating Patient has a history of seven weeks of constipation, having loose stool for the last three days. Patient denies abdominal pain. Only complains of rectal pain when he is having a bowel movement. Denies h emorrhoids. Denies nausea or vomiting. Patient is status post colonoscopy in past last one was one year ago in [place] within normal limits per patient Past Medical History: Dyslipidemia, hypertension Past Surgical History: Denies Social History: NO smoking, drinking ETOH and use of illegal drugs. Family History: Noncontributory Review of Systems: Constitutional: no fever, chill, weight loss HEENT: no eye pain, no hearing loss, no oral lesion, no scleral icterus Heart: no chest pain, no chest pressure Lung: no cough, no dyspnea with exertion Abdomen: see HPI Physical exam: General: NAD, AAOX3 Chest: lung post clear to auscultation Heart: RRR, no murmur Abdomen: non-distended, no tenderness to palpation, +BS Labs: Labs Test 03/23/25 16:36 Range/Units White Blood Count 7.0 4.4-10.8 10^3/uL Red Blood Count 4.18 L 4.5-5.90 10^6/uL Hemoglobin 13.3 L 13.5-17.5 g/dL Hematocrit 38.1 L 41.0-53.0 % Mean Corpuscular Volume 91.2 80.0-100.0 fL Mean Corpuscular Hemoglobin 31.7 28.0-32.0 pg Mean Corpuscular Hemoglobin Concent 34.8 32.0-36.0 g/dL Red Cell Distribution Width 13.8 11.8-14.3 % Platelet Count 266 140-450 10^3/uL Mean Platelet Volume 7.7 6.9-10.8 fL Neutrophils (%) (Auto) 74.9 37.0-80.0 % Lymphocytes (%) (Auto) 16.2 10.0-50.0 % Monocytes (%) (Auto) 7.9 0.0-12.0 % Eosinophils (%) (Auto) 0.5 0.0-7.0 % Basophils (%) (Auto) 0.5 0.0-2.0 % Neutrophils # (Auto) 5.2 1.6-8.6 10 ^3/uL Lymphocytes # (Auto) 1.1 0.4-5.4 10 ^3/uL Monocytes # (Auto) 0.6 0-1.3 10 ^3/uL Eosinophils # (Auto) 0 0-0.8 10 ^3/uL Basophils # (Auto) 0 0-0.2 10 ^3/uL Nucleated Red Blood Cells 0.1 % Sodium Level 141 136-145 mmol/L Potassium Level 4.1 3.5-5.1 mmol/L Chloride Level 104 98-107 mmol/L Carbon Dioxide Level 28 20-31 mmol/L Anion Gap 9 5-15 Blood Urea Nitrogen 13 9-23 mg/dL Creatinine 0.84 0.700-1.30 mg/dL Glomerular Filtration Rate Calc 86 >90 mL/min BUN/Creatinine Ratio 15.5 10.0-20.0 Serum Glucose 88 74-106 mg/dL Calcium Level 9.4 8.7-10.4 mg/dL Troponin I High Sensitivity 17 </=54 ng/L Imaging: CT abdomen pelvis IMPRESSION: Constipation were rectal stercoral colitis. Bilateral renal parapelvic cysts. Enlarged prostate. Recommend correlation with PSA. Bibasilar atelectasis with possible Left basilar infectious/inflammatory process. Additional findings as above. Assessment: Constipation Stercoral colitis History of colon polyps Plan: Discussed with Dr. Valdez Stool for WBC and bacterial culture MiraLax Anusol suppositories if rectal pain persists Possible outpatient colonoscopy recommended at this time Plan discussed with patient, RN at bedside Thank you for this consult Date of Service: Mar 24, 2025 Billing Provider: ANAYELI ARNETT Common Visit Codes: CONSULT ONLY Consultation Codes: [id number] CONSULT <60MIN ANAYELI ARNETT Mar 24, 2025 14:23
[2025-03-24] MEDS: TAMSULOSIN HYDROCHLORIDE 0.4 MG CAP PO SCH (18:46)
[2025-03-24] MEDS: ATORVASTATIN 20 MG TAB PO SCH (21:27)
[2025-03-25] VITALS (7 sets, daily range): BP systolic 108–146; BP diastolic 48–89; PULSE 54–61; RESP 14–17; TEMP 97.1–98.7; O2SAT 96–97
[2025-03-25 08:07] LABS: Prostate Specific Antigen 8.3 ng/mL (0.0-4.0)
[2025-03-25 10:25] LABS: Hepatitis C Antibody Negative (Negative)
[2025-03-25 10:29] LABS: Hepatitis B Surface Antigen Negative (Negative)
--- NOTE | 2025-03-25 10:37 | DVHPN2 ---
Reviewed: Care Plan, H&P, Labs, Medications, Previous Orders, Radiology Changes from previous H/P or p: No Changes Objective Vitals Vital Signs Date Time Temp Pulse Resp B/P (MAP) Pulse Ox O2 Delivery O2 Flow Rate FiO2 03/25/25 09:02 98.4 55 14 122/68 (86) 97 98.4 03/25/25 08:00 Room Air* 0 21 Intake/Output Intake and Output 03/25/25 07:00 Intake Total 1600 ml Balance 1600 ml Intake Oral 1400 ml IV Total 200 ml # Voids 7 # Bowel Movements 3 Medications Current Medications Medications Dose Ordered Sig/Zohreh Route Start Time Stop Time Status Last Admin Dose Admin Metronidazole 100 ml @ 100 mls/hr Q8HR IV 03/24/25 06:00 03/25/25 05:59 100 MLS/HR Atorvastatin Calcium 20 mg HS PO 03/24/25 22:00 03/24/25 21:27 20 MG Pantoprazole Sodium 40 mg DAILY@0600 PO 03/24/25 06:00 03/25/25 05:58 40 MG Tamsulosin HCl 0.4 mg QPM PO 03/24/25 18:00 03/24/25 18:46 0.4 MG Losartan Potassium 50 mg DAILY PO 03/24/25 10:00 03/24/25 10:25 50 MG Acetaminophen/ Hydrocodone Bitart 1 tab Q4HP PRN PO 03/24/25 00:15 03/24/25 21:27 1 TAB Ondansetron HCl 4 mg Q4HP PRN IV 03/24/25 00:15 Acetaminophen 650 mg Q6HP PRN PO 03/24/25 00:15 Laboratory Results Laboratory Tests 03/23/25 16:36 Microbiology Microbiology Date/Time Source Procedure Growth Status 03/24/25 02:45 Nose MRSA Screen - Final Complete Labs and/or images reviewed: Labs reviewed by me, Image(s) reviewed by me Assessment/Plan Assessment/Plan Rectal pain Stercoral colitis Hypertension Constipation: MiraLax: GI consult for Dr. Seven Valdez Patient is hospice revoked Time spent 45 minutes Advanced care planning time 20 minutes Ingrid at bed side Son Romeo [phone] at bed side Pt was with [facility] prior to admission. Hospice revoked. Patient is full code Plan discussed with: Patient My Orders Orders - JAMIL ARNETT MD Procedure Category Date Status Time Code Status CODE 03/24/25 Transmitted 14:14 Date of Service: Mar 25, 2025 Billing Provider: JAMIL ARNETT MD Common Visit Codes: [id number] INP/OBS CARE(HIGH) JAMIL ARNETT MD Mar 25, 2025 10:36
--- NOTE | 2025-03-25 12:17 | DVHPN2 ---
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 No nausea vomiting Tolerating diet well Reviewed: Care Plan, H&P, Labs, Medications, Previous Orders, Radiology Changes from previous H/P or p: No Changes Objective Vitals Vital Signs Date Time Temp Pulse Resp B/P (MAP) Pulse Ox O2 Delivery O2 Flow Rate FiO2 03/25/25 11:26 122/68 03/25/25 09:02 98.4 55 14 97 98.4 03/25/25 08:00 Room Air* 0 21 Intake/Output Intake and Output 03/25/25 06:59 Intake Total 1600 ml Balance 1600 ml Intake Oral 1400 ml IV Total 200 ml # Voids 7 # Bowel Movements 3 Exam General: NAD, AAOX3 Chest: lung post clear to auscultation Heart: RRR, no murmur Abdomen: non-distended, no tenderness to palpation, +BS Medications Current Medications Medications Dose Ordered Sig/Zohreh Route Start Time Stop Time Status Last Admin Dose Admin Metronidazole 100 ml @ 100 mls/hr Q8HR IV 03/24/25 06:00 03/25/25 05:59 100 MLS/HR Atorvastatin Calcium 20 mg HS PO 03/24/25 22:00 03/24/25 21:27 20 MG Pantoprazole Sodium 40 mg DAILY@0600 PO 03/24/25 06:00 03/25/25 05:58 40 MG Tamsulosin HCl 0.4 mg QPM PO 03/24/25 18:00 03/24/25 18:46 0.4 MG Losartan Potassium 50 mg DAILY PO 03/24/25 10:00 03/25/25 11:26 50 MG Acetaminophen/ Hydrocodone Bitart 1 tab Q4HP PRN PO 03/24/25 00:15 03/24/25 21:27 1 TAB Ondansetron HCl 4 mg Q4HP PRN IV 03/24/25 00:15 Acetaminophen 650 mg Q6HP PRN PO 03/24/25 00:15 Laboratory Results Laboratory Tests 03/23/25 16:36 Microbiology Microbiology Date/Time Source Procedure Growth Status 03/24/25 02:45 Nose MRSA Screen - Final Complete Assessment/Plan Assessment/Plan Constipation Stercoral colitis History of colon polyps Plan: Discussed with Dr. Valdez Stool WBC none seen Stool bacterial culture pending Advance diet as tolerated Outpatient GI follow-up recommended Plan discussed with: Patient, Other (RN) Date of Service: Mar 25, 2025 Billing Provider: ANAYELI ARNETT Common Visit Codes: [id number] INP/OBS CARE(HIGH), CONSULT ONLY ANAYELI ARNETT Mar 25, 2025 12:17
[2025-03-26] VITALS (8 sets, daily range): BP systolic 133–155; BP diastolic 77–88; PULSE 62–70; RESP 12–17; TEMP 97.3–98.8; O2SAT 95–97
[2025-03-26] MEDS: ACETAMINOPHEN 325 MG TAB PO PRN (09:36)
--- NOTE | 2025-03-26 10:57 | DVHPN2 ---
Reviewed: Care Plan, H&P, Labs, Medications, Previous Orders, Radiology Changes from previous H/P or p: No Changes Objective Vitals Vital Signs Date Time Temp Pulse Resp B/P (MAP) Pulse Ox O2 Delivery O2 Flow Rate FiO2 03/26/25 09:35 147/81 03/26/25 08:38 97.3 70 16 96 97.3 03/26/25 08:00 Room Air* 0 21 Intake/Output Intake and Output 03/26/25 07:00 Intake Total 1010 ml Balance 1010 ml Intake Oral 810 ml IV Total 200 ml # Voids 8 # Bowel Movements 5 Medications Current Medications Medications Dose Ordered Sig/Zohreh Route Start Time Stop Time Status Last Admin Dose Admin Metronidazole 100 ml @ 100 mls/hr Q8HR IV 03/24/25 06:00 03/26/25 06:04 100 MLS/HR Atorvastatin Calcium 20 mg HS PO 03/24/25 22:00 03/25/25 22:08 20 MG Pantoprazole Sodium 40 mg DAILY@0600 PO 03/24/25 06:00 03/26/25 06:04 40 MG Tamsulosin HCl 0.4 mg QPM PO 03/24/25 18:00 03/25/25 18:35 0.4 MG Losartan Potassium 50 mg DAILY PO 03/24/25 10:00 03/26/25 09:35 50 MG Acetaminophen/ Hydrocodone Bitart 1 tab Q4HP PRN PO 03/24/25 00:15 03/24/25 21:27 1 TAB Ondansetron HCl 4 mg Q4HP PRN IV 03/24/25 00:15 Acetaminophen 650 mg Q6HP PRN PO 03/24/25 00:15 03/26/25 09:36 650 MG Laboratory Results Laboratory Tests 03/23/25 16:36 Microbiology Microbiology Date/Time Source Procedure Growth Status 03/24/25 02:45 Nose MRSA Screen - Final Complete 03/24/25 01:28 Stool Stool Culture - Final Complete 03/24/25 01:28 Stool Shiga Toxin I & II - Final Complete Labs and/or images reviewed: Labs reviewed by me, Image(s) reviewed by me Assessment/Plan Assessment/Plan Rectal pain Stercoral colitis : Stool for bacterial cultures negative Shiga toxin negative Hypertension Constipation: MiraLax: GI consult for Dr. Seven Valdez appreciated, Patient is hospice revoked Time spent 45 minutes Advanced care planning time 20 minutes Ingrid at bed side Son Romeo [phone] at bed side Pt [facility] prior to admission. Hospice revoked. Patient is full code Plan discussed with: Patient Date of Service: Mar 26, 2025 Billing Provider: JAMIL ARNETT MD Common Visit Codes: [id number] INP/OBS CARE(HIGH) JAMIL ARNETT MD Mar 26, 2025 10:57
--- NOTE | 2025-03-26 11:35 | DVHDS2 ---
Discharge Summary Date of Admission Mar 23, 2025 at 19:56 Date of Discharge: Mar 26, 2025 Admitting Diagnosis Abdominal pain and constipation Wounds: None Labs/Diagnostic Data: Laboratory Results Test 03/24/25 04:47 03/24/25 01:28 03/23/25 16:36 Troponin I High Sensitivity 16 ng/L (</=54) Hepatitis B Surface Antigen Negative (Negative) Hepatitis C Antibody Negative (Negative) Stool for White Cells None seen White Blood Count 7.0 10^3/uL (4.4-10.8) Red Blood Count 4.18 10^6/uL (4.5-5.90) Hemoglobin 13.3 g/dL (13.5-17.5) Hematocrit 38.1 % (41.0-53.0) Mean Corpuscular Volume 91.2 fL (80.0-100.0) Mean Corpuscular Hemoglobin 31.7 pg (28.0-32.0) Mean Corpuscular Hemoglobin Concent 34.8 g/dL (32.0-36.0) Red Cell Distribution Width 13.8 % (11.8-14.3) Platelet Count 266 10^3/uL (140-450) Mean Platelet Volume 7.7 fL (6.9-10.8) Neutrophils (%) (Auto) 74.9 % (37.0-80.0) Lymphocytes (%) (Auto) 16.2 % (10.0-50.0) Monocytes (%) (Auto) 7.9 % (0.0-12.0) Eosinophils (%) (Auto) 0.5 % (0.0-7.0) Basophils (%) (Auto) 0.5 % (0.0-2.0) Neutrophils # (Auto) 5.2 10 ^3/uL (1.6-8.6) Lymphocytes # (Auto) 1.1 10 ^3/uL (0.4-5.4) Monocytes # (Auto) 0.6 10 ^3/uL (0-1.3) Eosinophils # (Auto) 0 10 ^3/uL (0-0.8) Basophils # (Auto) 0 10 ^3/uL (0-0.2) Nucleated Red Blood Cells 0.1 % Sodium Level 141 mmol/L (136-145) Potassium Level 4.1 mmol/L (3.5-5.1) Chloride Level 104 mmol/L (98-107) Carbon Dioxide Level 28 mmol/L (20-31) Anion Gap 9 (5-15) Blood Urea Nitrogen 13 mg/dL (9-23) Creatinine 0.84 mg/dL (0.700-1.30) Glomerular Filtration Rate Calc 86 mL/min (>90) BUN/Creatinine Ratio 15.5 (10.0-20.0) Serum Glucose 88 mg/dL (74-106) Calcium Level 9.4 mg/dL (8.7-10.4) Free Prostate Specific Antigen 2.00 ng/mL (N/A) Percent Free Prostate Specific Ag 24.1 % (.) Prostate Specific Antigen Total 8.3 ng/mL (0.0-4.0) Other Laboratory Tests 03/23/25 16:36 Brief Hx & Hospital Course: 85 Year old male with a history of dementia hypotension chronic constipation on hospice burden by family for rectal pain and abdominal pain. CT abdomen pelvis without contrast showed stercoral colitis. Patient had severe constipation treated with the MiraLax and laxatives GI consult by Dr. Seven Valdez stool studies for bacterial cultures and Shiga toxin came negative. Patient has moderately improved patient had severe dementia and failure to thrive physical therapy recommended [facility] facility placement for rehab and gaining strength. Discussed with the patient's Ingrid and son Arden at bedside and they agreed. Patient is being discharged to [facility] for [facility]hab. Consults/Reason for consult GI Dr. Seven Valdez Operations or Procedures CT abdomen pelvis without contrast Condition at Discharge: Fair Final Diagnosis/Problems List Failure to thrive Dementia Rectal pain Stercoral colitis : Stool for bacterial cultures negative Shiga toxin negative Hypertension Constipation: MiraLax: GI consult for Dr. Seven Valdez appreciated General debility Severe malnutrition [facility] Discharge Instruct/Medications Diet: Regular Activity: Light activity Follow Up/Referral: Follow up with the retirement Medications: see list Scheduled Atorvastatin Calcium (Lipitor), 20 MG PO DAILY, (Reported) Cefdinir (Cefdinir), 1 CAP PO BID Docusate Sodium (Colace), 1 CAP PO BID Folic Jnle-Wrjudutfuu-Uvspgvsa (Folbic), 1 TAB PO DAILY Gabapentin (Gabapentin), 1 CAP PO TID Hydrochlorothiazide (Hydrochlorothiazide), 25 MG PO DAILY, (Reported) Levofloxacin Hemihydrate (Levofloxacin), 1 TAB PO DAILY Losartan Potassium (Losartan Potassium), 50 MG PO DAILY, (Reported) Magnesium Oxide (Magnesium Oxide), 400 MG PO DAILY, (Reported) Methocarbamol (Methocarbamol), 750 MG PO TID Metronidazole (Flagyl), 1 TAB PO TID Multiple Vitamin (Multivitamins), 1 CAP PO DAILY, (Reported) Mupirocin Calcium (Topical) (Mupirocin), 2 % EX BID Pantoprazole Sodium Sesquihydr (Protonix), 40 MG PO DAILY, (Reported) Quetiapine Fumerate (Seroquel), 25 MG PO DAILY, (Reported) Tamsulosin Hcl (Tamsulosin Hcl), 0.4 NG PO DAILY, (Reported) 39 (Time Taken for discharge summary 39 minutes) Discharge Statement: "Patient was advised to return to the ER or call 911 if any headaches, dizziness, shortness of breath, chest pain, abdominal pain, bleeding, fevers, or worsening of medical condition. Patient was counseled about treatment plan, medications, possible side effects, patientverbalized understanding. All questions were answered to the best of my ability. This discharge took greater then 30 minutes in planning, reviewing documentation, counseling the patient, and discussing with other team members." ASSESSMENT ASSESSMENT Hospital Course Improved marginally Assessment Failure to thrive Dementia Rectal pain Stercoral colitis : Stool for bacterial cultures negative Shiga toxin negative Hypertension Constipation: MiraLax: GI consult for Dr. Seven Valdez appreciated General debility Severe malnutrition Date of Service: Mar 26, 2025 Billing Provider: JAMIL ARNETT MD Common Visit Codes: [id number] DISCH DAY >30min JAMIL ARNETT MD Mar 26, 2025 11:35
[2025-03-27] MEDS: MELATONIN 5 MG TAB PO ONE (00:52)
[2025-03-27 01:00] VITALS: BP 140/77; PULSE 62; RESP 18; TEMP 97.9; O2SAT 97
[2025-03-27 05:00] VITALS: BP 141/73; PULSE 65; RESP 18; TEMP 98; O2SAT 95
[2025-03-27 08:00] VITALS: PULSE 67; RESP 14; O2SAT 97
[2025-03-27 09:26] VITALS: BP 137/78; PULSE 67; RESP 14; TEMP 97.3; O2SAT 97
--- NOTE | 2025-03-27 10:39 | DVHPN2 ---
Reviewed: Care Plan, H&P, Labs, Medications, Previous Orders, Radiology Changes from previous H/P or p: No Changes Objective Vitals Vital Signs Date Time Temp Pulse Resp B/P (MAP) Pulse Ox O2 Delivery O2 Flow Rate FiO2 03/27/25 09:27 137/78 03/27/25 09:26 97.3 67 14 97 97.3 03/27/25 08:00 Room Air* 0 21 Intake/Output Intake and Output 03/27/25 07:00 Intake Total 800 ml Balance 800 ml Intake Oral 500 ml IV Total 300 ml # Voids 10 # Bowel Movements 2 Medications Current Medications Medications Dose Ordered Sig/Zohreh Route Start Time Stop Time Status Last Admin Dose Admin Metronidazole 100 ml @ 100 mls/hr Q8HR IV 03/24/25 06:00 03/27/25 05:44 100 MLS/HR Atorvastatin Calcium 20 mg HS PO 03/24/25 22:00 03/26/25 21:31 20 MG Pantoprazole Sodium 40 mg DAILY@0600 PO 03/24/25 06:00 03/27/25 05:44 40 MG Tamsulosin HCl 0.4 mg QPM PO 03/24/25 18:00 03/26/25 17:42 0.4 MG Losartan Potassium 50 mg DAILY PO 03/24/25 10:00 03/27/25 09:27 50 MG Acetaminophen/ Hydrocodone Bitart 1 tab Q4HP PRN PO 03/24/25 00:15 03/24/25 21:27 1 TAB Ondansetron HCl 4 mg Q4HP PRN IV 03/24/25 00:15 Acetaminophen 650 mg Q6HP PRN PO 03/24/25 00:15 03/26/25 21:31 650 MG Laboratory Results Laboratory Tests 03/23/25 16:36 Microbiology Microbiology Date/Time Source Procedure Growth Status 03/24/25 02:45 Nose MRSA Screen - Final Complete 03/24/25 01:28 Stool Stool Culture - Final Complete 03/24/25 01:28 Stool Shiga Toxin I & II - Final Complete Labs and/or images reviewed: Labs reviewed by me, Image(s) reviewed by me Assessment/Plan Assessment/Plan Rectal pain Stercoral colitis : Stool for bacterial cultures negative Shiga toxin negative Hypertension Constipation: MiraLax: GI consult for Dr. Seven Valdez appreciated, Hypertension BPH Peripheral neuropathy Patient is hospice revoked Time spent 45 minutes Advanced care planning time 20 minutes Ingrid at bed side Son Romeo [phone] at bed side Patient being discharged to halfway facility for rehab. The plan agreeable to the patient's Ingrid and the son Romeo at the bedside Plan discussed with: Patient My Orders Orders - JAMIL ARNETT MD Procedure Category Date Status Time * Assistant Branch Operations Manager CONS 03/26/25 Transmitted Consult Discharge DISCHARGE 03/26/25 Transmitted 11:30 Date of Service: Mar 27, 2025 Billing Provider: JAMIL ARNETT MD Common Visit Codes: [id number] INP/OBS CARE(HIGH) JAMIL ARNETT MD Mar 27, 2025 10:39
[2025-03-27 12:36] VITALS: BP 117/64; PULSE 66; RESP 14; TEMP 97.4; O2SAT 95
[2025-03-27] MEDS: GABAPENTIN 300 MG CAP PO SCH (14:34)
[2025-03-27 16:50] VITALS: BP 129/74; PULSE 66; RESP 14; TEMP 97.3; O2SAT 96
== END 2025-03-27 18:30 | DRG 391 ==
LOC: EDBD 14:52 → ER 15:03 → OVERFLOW 19:56 → EAST 23:45
PROVIDERS: ADMIT Family Medicine; ATTEND Family Medicine
DX: K52.89 Other specified noninfective gastroenteritis and colitis (principal); E43 Unspecified severe protein-calorie malnutrition; I10 Essential (primary) hypertension; F03.90 Unspecified dementia, unspecified severity, without behavioral disturbance, psychotic disturbance, mood disturbance, and anxiety; G62.9 Polyneuropathy, unspecified; K62.89 Other specified diseases of anus and rectum; N40.0 Benign prostatic hyperplasia without lower urinary tract symptoms; R62.7 Adult failure to thrive; K59.00 Constipation, unspecified; G35.D Multiple sclerosis, unspecified; E78.5 Hyperlipidemia, unspecified; Z79.899 Other long term (current) drug therapy; Z86.0100 Personal history of colon polyps, unspecified; Z68.27 Body mass index [BMI] 27.0-27.9, adult
CPT/HCPCS: 36415; 74176; 80048; 84154; 84484; 85025; 85048; 86803; 87045; 87081; 87340; 87427; 97110; 97116; 97163; 97530; G0378; J1885; J3490

== ENCOUNTER → 2025-04-19 | Outpatient (CLI) | payer MEDICARE, MEDICAID | END | disposition home or self-care (01) | LOC: Rad HDHVI 13:07 | PROVIDERS: ATTEND Internal Medicine Cardiovascular Disease | DX: I11.0 Hypertensive heart disease with heart failure (principal); I50.9 Heart failure, unspecified | CPT/HCPCS: 93306 ==